=== PATIENT | female | born 1950 | race African-American/Black ===

== ENCOUNTER 2020-06-11 22:47 | Emergency (ER) | payer MEDICARE ==
[2020-06-11 22:59] LABS: HEMATOCRIT 25.9 % (34.2-44.1); HEMOGLOBIN 7.5 g/dL (12.0-16.0)
--- NOTE | 2020-06-11 23:06 | NUR ---
Hemoglobin 7.5 Pt will be discharge back to facility
--- NOTE | 2020-06-11 23:14 | Emergency Department Note ---
History of Present Illnes History of Present Illness Chief Complaint: General Medicine Complaints History of Present Illness This is a 69 year old female [facility] for [facility] 6.9. No distress noted. Patient has history of chronic anemia. SENT FOR BLOOD TRANSFUSION . Historian: [employer] History limited by: other (PT WITH TRACH DOES NOT TALK) Onset (how long ago): unknown Location: NONE Quality: LOW HEMOGLOBIN Severity: moderate Onset quality: unable to specify Timing of current episode: unable to specify Progression: unable to specify Past Medical/Family History Physician Review I have reviewed the patient's past medical and family history. Any updates have been documented here. Past Medical History Recent Fever: No Clinical Suspicion of Infectio: No New/Unexplained Change in Ment: No Past Medical History: Hypertension, COPD Other Medical History: cardiomyopathy decubitus ulcer stage 4 chronic resp failure sepsis toxic encephalopthy pneumonia anemia Past Surgical History: Hysterectomy Social History Unable to obtain PSH: Unable to obtain due to, other (PT WITH TRACH, DOES NOT SPEAK) Review of Systems ROS Narrative Unable to obtain ROS: Unable to obtain due to, other (PT WITH TRACH DOES NOT SPEAK, ONLY FOLLOW SIMPLE COMMANDS) Physical Exam Related Data Allergies: Coded Allergies: aspirin (Verified Allergy, Unknown, 06/11/20) Uncoded Allergies: PENICILLIN (Allergy, Unknown, 06/11/20) Triage Vital Signs Vital Signs Date Time Temp Pulse Resp B/P (MAP) Pulse Ox O2 Delivery O2 Flow Rate FiO2 06/11/20 22:53 99.2 75 16 124/60 100 Room Air Vital signs reviewed: Yes Physical Exam CONSTITUTIONAL Constitutional: Present well-developed, Present well-nourished; Absent distressed, Absent ill appearing HENT HENT: Present normocephalic, Present atraumatic, Present oropharynx clear/moist, Present nose normal HENT L/R: Present left ext ear normal, Present right ext ear normal EYES Eyes: Reports PERRL, Reports conjunctivae normal, Reports other (MILD PALE CONJUNCTIVA) NECK Neck: Present ROM normal, Present other (TRACH PRESENT, NO SECRETIONS, ) PULMONARY Pulmonary: Present effort normal, Present breath sounds normal CARDIOVASCULAR Cardiovascular: Present regular rhythm, Present heart sounds normal, Present capillary refill normal, Present normal rate GASTROINTESTINAL Abdominal: Present soft, Present nontender, Present bowel sounds normal GENITOURINARY Genitourinary: Present exam deferred SKIN Skin: Present warm, Present dry MUSCULOSKELETAL Musculoskeletal: Present ROM normal NEUROLOGICAL Neurological: Present alert, Present other (PT ONLY FOLLOWS VERY SIMPLE COMMANDS) PSYCHOLOGICAL Psychological: Present mood/affect normal, Present judgement normal Results Laboratory Result Diagram: 06/11/20 2252 Laboratory Laboratory Tests Test 06/11/20 22:53 Hemoglobin 7.5 g/dL (12.0-16.0) Hematocrit 25.9 % (34.2-44.1) Lab results reviewed: Yes Assessment & Plan Medical Decision Making MDM PT HGB 7.5 REPORTED 6.9 AT LONG-TERM PT DOES NOT MEET CRITERIA FOR EMERGENT BLOOD TRANSFUSION, PT DISCHARGED BACK TO LONG-TERM I SPOKE WITH DR VIPUL IZQUIERDO, PT'S PCP AND HE IS AWARE SHE DOES NOT REQUIRE A BLOOD TRANSFUSION AT THIS TIME Assessment & Plan Final Impression: (1) Chronic anemia Depart Disposition: DIS TO LONG-TERM BED Last Vital Signs Date Time Temp Pulse Resp B/P (MAP) Pulse Ox O2 Delivery O2 Flow Rate FiO2 06/11/20 22:53 99.2 75 16 124/60 100 Room Air EMA RUCKER MD Jun 11, 2020 23:14
--- NOTE | 2020-06-11 23:14 | NUR ---
[facility] ETA 30-45 mins
--- NOTE | 2020-06-11 23:42 | NUR ---
[facility] nurse notified patient hgb 7.5 and going [facility] to [facility]
--- NOTE | 2020-06-12 00:02 | NUR ---
[facility] arrived in ED for pt transport back to [facility].
== END 2020-06-12 00:08 ==
LOC: ER 22:53
DX: D64.9 Anemia, unspecified (principal); I10 Essential (primary) hypertension; J44.9 Chronic obstructive pulmonary disease, unspecified
CPT/HCPCS: 36415; 85014; 85018; 94002; 94003; 99284

== ENCOUNTER 2020-07-15 18:11 | Inpatient (IN) | payer MEDICARE ==
[~2020-07-15] VITALS: Ht 152.4 cm; Wt 55.8 kg
--- OUTSIDE RECORDS SUMMARY | 2020-07-15 19:27 | XMS REPORT | Continuity of Care Document ---
Author Author Jason [employer], ALBAR[employer] Address Unknown Phone Unavailable Care Team Providers Care Voice Intercept Technician Name Role Phone [employer] Unavailable Un available Problems Problem Status Onset Date Classification Date Reported Comments Source Methicillin resistant Staphylococcus aureus (organism) Active 05/31/2020 Problem 06/08/2020 Nares, PCR+, 2019 Problem added by Discern Expert. [place] Escherichia coli (organism) Ac tive 05/31/2020 Problem 06/08/2020 Sputum, 05/31/2020 Sacral Wound, 05/30/2020 Problem added by Discern Expert. [place] ACUTE SEPSIS CHRONIC RESPIRATORY FAILURE Active 05/30/2020 [place] UNRESPONSIVE Active 05/30/2020 [place] Proteus (organism) Active 05/30/2020 Problem 06/08/2020 sacral wound, ESBL+, 05/30/2020 Problem added by Discern Expert. [facility] Chronic obstructive pulmonary disease wi th (acute) exacerbation 11/26/2018 05/19/2019 [facility] DYSPNEA Active 10/29/2018 [facility] COPD Active 10/29/2018 [facility] SOB Active 0 10/29/2018 [facility] Osteoarthritis involving multiple joints on both sides of body Active Prob gagan 07/28/2018 [facility] Lumbago with sciatica, left side Active Problem [facility] Pain in left shoulder Active Diagnosis 07/28/2018 [facility] Counseling NOS Active Diagnosis 07/28/2018 [facility] Pain in right shoulder Active Diagnosis 07/28/2018 [facility] Nicotine dependence, cigarettes, with withdrawal 05/19/2019 [facility] Atherosclerotic heart disease of [place] coronary artery without angina pectoris 05/19/2019 [facility] Heart failure, unspecified 05/19/2019 [facility] Major depressive disorder, single episode, unspecified 05/19/2019 [facility] Gastro-esophageal reflux disease without esophagitis 05/19/2019 [facility] 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 05/19/2019 [facility] Migraine, unspecified, not intractable, without status migrainosus 05/19/2019 [facility] Old myocardial infarction 05/19/2019 [facility] 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 (disorder) Active Problem 06/08/2020 [facility] D-dimer above reference range (finding) Active Problem 06/08/2020 [facility] Deficiency of macronutrients (disorder) Active Problem 06/08/2020 [facility] Chronic obstructive bronchitis (disorder) Active Problem 06/08/2020 [facility] Hypertensive disorder, systemic arterial (disorder) Resolved Problem 06/08/2020 [facility] Swollen abdomen (finding) Acti ve Problem 02/2020 [facility] Pseudomonas (organism) Active Problem 06/08/2020 Problem added by Discern Expert. [facility] DYSPNEA, UNSPECIFIED Active [facility] SEPSIS, UNSPECIFIED ORGANISM A ctive [facility] CHRONIC RESPIRATORY FAILURE, UNSP W HYPO Active [facility] PRESSURE ULCER OF SACRAL REGION, STAGE 4 Active [facility] Medications Medication Details Route Status Patient Instructions Ordering Provider Order Date Source Saline Flush 0.9% Notes: (Same as: BD Posiflush) Inactive 06/06/2020 [facility] losartan 50 mg oral tablet 100 mg = 2 tab, PO, Daily, 0 Refill(s) Active 06/06/2020 [facility] collagenase topical 250 units/g ointment 1 appl, TOP, Daily, 0 Refill(s) Active 06/06/2020 [facility] fluconazole 200 mg oral tablet 200 mg = 1 tab, PEG, Daily, X 5 day, # 5 tab, 0 Refill(s), other Active 06/06/2020 [facility] ocular lubricant 1 appl, BOTH EYES, Q6H, 0 Refill(s) Active 06/06/2020 [facility] Sodium Hypochlorite 1.25 MG/ML Topical Solution 1 appl, TOP, Daily, 0 Refill(s) Active 06/06/2020 [facility] meropenem 500 mg intravenous injection 500 mg, IV, Q6H, X 35 day, # 140 ea, 0 Refill(s), other Active 06/06/2020 [facility] Saline Flush 0.9% Notes: (Same as: BD Posiflush) Inactive 06/06/2020 [facility] Santyl Notes: (Same As: Santyl) Inactive 06/06/2020 [place] Losartan Notes: (Same as: Ludmila bolivar) No Longer Active 06/05/2020 [place] Losartan Notes: (Same as: Ludmila bolivar) Inactive 06/04/2020 [place] Labetalol 10 mg, 2 mL, Route: IV, Drug form: INJ, ONCE, Dosing Weight 59.6, kg, Start date: 06/03/20 5:40:00 CDT, Stop date: 06/03/20 5:40:00 CDT, 0 Inactive 06/03/2020 [place] Escitalopram Notes: (Same as: Lexapro) No Longer Active 06/02/2020 [place] Famotidine 20 MG Oral Tablet N otes: (Same as: Pepcid) No Longer Active 06/02/2020 [place] Folic Acid Notes: (Same as: Fo lvite) No Longer Active 06/02/2020 [place] Furosemide 40 MG Oral Tablet [Lasix] Notes: (Same as: Lasix) May cause GI upset. Give with food or milk. No Longer Active 06/02/2020 [place] Losartan Notes: (Same as: Ludmila bolivar) No Longer Active 06/02/2020 [place] multivitamin Notes: (Same as:Roderick saini) WASTE: F/P - Black; E - Municipal Trash Bin Take with food. No Longer Active 06/02/2020 [place] Zinc Sulfate Notes: (Zinc sulf ate capsule) - 220 mg Zinc sulfate = 50 mg elemental zinc Same as Zinc Sulfate No Longer Active 06/02/2020 [place] atorvastatin Notes: (Same as: Lipitor) No Longer Active 06/02/2020 [place] Fluconazole Notes: (Same as: D iflucan) Do not refrigerate Hazardous Drug Group 3:Reproductive risk Hazardous Drug -- Refer to safe handling procedure PPE Matrix No Longer Active 06/01/2020 [place] ferrous sulfate Notes: Give wi th food. "Do Not Crush" No Longer Active 06/01/2020 [place] Amiodarone Notes: (Same as: Co rdarone) No Longer Active 06/01/2020 [place] carvedilol Notes: Give with fo od. (Same As: Coreg) No Longer Active 06/01/2020 [place] Solu-Medrol Notes: (Same as:So akshat-MEDROL, A-Methapred) No Longer Active 06/01/2020 [place] Dakins Solution 1 appl, Route: TOP, BID, Drug form: SOLN, Start date: 06/01/20 9:00:00 CDT, Duration: 30 day, Stop date: 06/30/20 17:00:00 CDT Inactive 06/01/2020 [place] Dakins Quarter Strength Solution Notes: (Dakin's (0.125%=1/4 strength) 473ml top SOLN) For external use only. Note: quarter strength = 0.125% sodium hypochlorite. No Longer Active 06/01/2020 [place] Omnipaque 350 injectable solution Notes: (same as:Omnipaque 350). WASTE: F/P - Black; E - Municipal Trash Bin Inactive 06/01/2020 [place] Vancomycin 2001 mg: infuse ov er 2.5 hours For adult patients only: Round to nearest 250 mg per Medical Staff approval No Longer Active 05/31/2020 [place] AMIODarone 200 mg oral tablet 200 mg = 1 tab, PO, Daily, # 90 tab, 3 Refill(s) Active 05/31/2020 [place] Sulfamethoxazole 800 MG / Trimethoprim 1 60 MG Oral Tablet [Bactrim] 1 tab, PO, BID, # 20 tab, 0 Refill(s) No Longer Active 05/31/2020 [place] Famotidine 20 MG Oral Tablet 2 0 mg = 1 tab, PO, Daily, 0 Refill(s) Active 05/31/2020 [place] Zinc-220 oral capsule 220 mg = 1 cap, PO, Daily, 0 Refill(s) Active 05/31/2020 [place] ferrous sulfate 220 mg/5 mL oral elixir 220 mg = 5 mL, PO, TID, 0 Refill(s) Active 05/31/2020 [place] Folic Acid 1 mg, Daily, 0 Refi ll(s) Active 05/31/2020 [place] multivitamin 15 mL, Daily, 0 R efill(s) Active 05/31/2020 [place] Omnipaque 350 injectable solution Notes: (same as:Omnipaque 350). WASTE: F/P - Black; E - Municipal Trash Bin No Longer Active 05/31/2020 [place] Lasix Notes: (Same as: Lasix) Inactive 05/31/2020 [facility] Protonix Notes: For IV push re constitute with 10 ml 0.9% sodium chloride and push over 2 minutes. (Same as: Protonix) No Longer Active 05/31/2020 [facility] Saline Flush 0.9% Notes: (Same as: BD Posiflush) No Longer Active 05/31/2020 [facility] Albuterol 0.833 MG/ML / Ipratropium Brom kt 0.167 MG/ML Inhalant Solution [DuoNeb] Notes: (Same as: Duoneb) No Longer Active 05/31/2020 [facility] Merrem Notes: Same as Merrem No Longer Active 05/31/2020 [facility] ocular lubricant Notes: (Same as: Lacri-Lube, Puralube, Duratears Naturale, Artificial Tears, and Tears Again ) No Longer Active 05/31/2020 [facility] heparin Notes: porcine heparin No Longer Active 05/31/2020 [facility] Solu-Medrol Notes: (Same as:So akshat-MEDROL, A-Methapred) Inactive 05/31/2020 [facility] Sodium Chloride 0.9% (Bolus) IV 500 mL, 500 ml/hr, Infuse Over: 1 hr, Route: IV, 500, Drug form: INJ, ONCE, Priority: STAT, Dosing Weight 61.2 kg, Start date: 05/30/20 21:08:00 CDT, Stop date: 05/30/20 21:08:00 CDT, 0 Inactive 05/31/2020 [facility] Potassium Chloride Notes: ([facility] e as: KCL) Infuse no faster than 10 mEq/hr if given peripherally. No Longer Active 05/31/2020 [facility] sodium phosphate Notes: Infuse over 4 hour. Do not infuse phosphorous concurrently in the same line as TPN or IVF that contains calcium. For double lumen central lines, phosphorous may be infused in a separate lumen from TPN. No Longer Active 05/31/2020 [place] potassium phosphate Notes: ( me as: K Phosphate.) Do not infuse phosphorous concurrently in the same line as TPN or IVF that contains calcium. For double lumen central lines, phosphorous may be infused in a separate lumen from TPN. 1 mMol phoshate has 1.47 mEq potassium Infuse over 4 hours No Longer Active 05/31/2020 [facility] potassium phosphate-sodium phosphate 250 mg-280 mg-160 mg oral powder for reconstitution Notes: (Same as: Phos-NaK) Each 1.5 gm pkt has 250mg phosphorous. Mix w/2.5oz water and stir. No Longer Active 05/31/2020 [place] Magnesium Sulfate Notes: WASTE : F/P - Sink; E - Municipal Trash Bin No Longer Active 05/31/2020 [place] Magnesium Oxide Notes: (Same a s: Mag-Ox 400) Magnesium oxide [id number] elemental magnesium Dose=____mg magnesium oxide (___mg elemental magnesium) No Longer Active 05/31/2020 [place] Calcium Gluconate Notes: Conta ins: calcium gluconate 20mg/mL NaCl 0.67% 50mL WASTE: F/P - Sink; E - Municipal Trash Bin No Longer Active 05/31/2020 [facility] Calcium Carbonate 500 MG Chewable Tablet Notes: (Same As: Tums) Calcium Carbonate 500 mg = 200 mg elemental calcium Dose = mg calcium carbonate ( mg elemental calcium) No Longer Active 05/31/2020 [facility] Nystatin 100 UNT/MG Topical Powder Notes: (Same as:Mycostatin, Nilstat) For external use only. No Longer Active 05/31/2020 [place] Saline Flush 0.9% Notes: (Same as: BD Posiflush) No Longer Active 05/31/2020 [facility] Dextrose 50% Syringe (D50W) 12 .5 gm, 25 mL, Route: IVP, Drug Form: INJ, Dosing Weight 61.2, kg, PRN, PRN Blood Glucose Results, Start date: 05/30/20 21:06:00 CDT, Duration: 30 day, Stop date: 06/29/20 21:05:00 CDT, 0 No Longer Active 05/31/2020 [facility] Glucagon 1 mg, Route: IM, Drug form: PDR/INJ, PRN, Dosing Weight 61.2, kg, PRN Blood Glucose Results, Start date: 05/30/20 21:06:00 CDT, Duration: 30 day, Stop date: 06/29/20 21:05:00 CDT, 0 No Longer Active 05/31/2020 [place] Insulin Lispro Notes: (Same as : Humalog) Roll in palms of hands gently; Do not shake vigorously. WASTE: F/P - Black; E - Municipal Trash Bin Stable for 28 days at room temperature. Expires in days from Date No Longer Active 05/31/2020 [place] chlorhexidine gluconate 1.2 MG/ML Mouthwash Notes: (Same As: Peridex) No Longer Active 05/31/2020 [place] NS 1,000 mL 1,000 mL, Rate: 75 ml/hr, Infuse over: 13.3 hr, Route: IV, Dosing Weight 61.2 kg, Total Volume: 1,000, Start date: 05/30/20 19:47:00 CDT, Duration: 30 day, Stop date: 06/29/20 19:46:00 CDT, 1.63, m2, 0 No Longer Active 05/31/2020 [place] Dextrose 50% Syringe (D50W) 12 .5 gm, 25 mL, Route: IVP, Drug Form: INJ, Dosing Weight 61.2, kg, PRN, PRN Blood Glucose Results, Start date: 05/30/20 19:40:00 CDT, Duration: 30 day, Stop date: 06/29/20 19:39:00 CDT, 0 No Longer Active 05/31/2020 [place] Glucagon 1 mg, Route: IM, Drug form: PDR/INJ, PRN, Dosing Weight 61.2, kg, PRN Blood Glucose Results, Start date: 05/30/20 19:40:00 CDT, Duration: 30 day, Stop date: 06/29/20 19:39:00 CDT, 0 No Longer Active 05/31/2020 [place] Omnipaque 300 injectable solution Notes: (Same as:Omnipaque 300). WASTE: F/P - Black; E - Municipal Trash Bin No Longer Active 05/31/2020 [place] chlorhexidine gluconate 1.2 MG/ML Mouthwash Notes: (Same As: Peridex) No Longer Active 05/30/2020 [place] Saline Flush 0.9% Notes: (Same as: BD Posiflush) No Longer Active 05/30/2020 [place] Calcium Chloride 0.0014 MEQ/ML / Potassi um Chloride 0.004 MEQ/ML / Sodium Chloride 0.103 MEQ/ML / Sodium Lactate 0.028 MEQ/ML Injectable Solution 1,000 mL, 2,000 ml/hr, Route: IV, ONCE, Priority: STAT, Dosing Weight 61.364 kg, Start date: 05/30/20 17:15:00 CDT, Stop date: 05/30/20 17:15:00 CDT Inactive 05/30/2020 [facility] methylPREDNISolone SODium SUCCinate 125 mg, Route: IVP, ONCE, Dosing Weight 61.364, kg, Priority: STAT, Start date: 05/30/20 17:15:00 CDT, Stop date: 05/30/20 17:15:00 CDT Inactive 05/30/2020 [facility] Albuterol 0.833 MG/ML / Ipratropium Brom kt 0.167 MG/ML Inhalant Solution 3 mL, Route: NEB, Dosing Weight 61.364, kg, ONCE, STAT, Start date: 05/30/20 17:15:00 CDT, Stop date: 05/30/20 17:15:00 CDT Inactive 05/30/2020 [facility] Vancomycin 2001 mg: infuse ov er 2.5 hours For adult patients only: Round to nearest 250 mg per Medical Staff approval MEDICATION WASTE Product Size: 1000 mg Product Wasted: ___ mg Inactive 05/30/2020 [facility] meropenem 1 gm, Route: IVP, ON CE, Dosing Weight 61.364, kg, Priority: STAT, Start date: 05/30/20 17:15:00 CDT, Stop date: 05/30/20 17:15:00 CDT, ABX Indication: Other (specify in Comments) Inactive 05/30/2020 [facility] Mucinex Notes: (Same as: Guaif enesin LA, Humibid LA, Mucinex) Inactive 10/31/2018 [facility] atorvastatin Notes: (Same As: Lipitor) Inactive 10/31/2018 [facility] azithromycin 500 mg oral tablet 500 mg = 1 tab, PO, Daily, X 2 day, # 2 tab, 0 Refill(s), Pharmacy: [email or web address] [id number] No Longer Active 10/30/2018 [facility] predniSONE 20 mg oral tablet 4 0 mg = 2 tab, PO, Daily, X 4 day, # 8 tab, 0 Refill(s), Pharmacy: [facility] [id number] No Longer Active 10/30/2018 [facility] Methocarbamol Notes: (Same as: Robaxin) Inactive 10/30/2018 [facility] Protonix Notes: Tablet should not be chewed or crushed. (Same as: Protonix) Inactive 10/30/2018 [facility] Lisinopril Notes: (Same as: Pr inivil, Zestril) Inactive 10/30/2018 [facility] Escitalopram Notes: (Same as: Lexapro) Inactive 10/30/2018 [facility] Furosemide 40 MG Oral Tablet [Lasix] Notes: (Same as: Lasix) May cause GI upset. Give with food or milk. Inactive 10/30/2018 [facility] Docusate Notes: (Same as: Cola ce) (Do Not Crush) Inactive 10/30/2018 [facility] Acetaminophen 300 MG / Codeine Phosphate 30 MG Oral Tablet [Tylenol with Codeine #3] Notes: Do not exceed 4gm/day of acetamin ophen. (Same as: Tylenol with Codeine # 3) Inactive 10/30/2018 [facility] Albuterol 0.833 MG/ML / Ipratropium Brom kt 0.167 MG/ML Inhalant Solution Notes: (Same as: Duoneb) Inactive 10/30/2018 [facility] nter Trazodone Hydrochloride 100 MG Oral Tablet Notes: (Same As: Desyrel) Inactive 10/30/2018 [facility] gabapentin 300 MG Oral Capsule Notes: (Same as: Neurontin) Inactive 10/30/2018 [facility] Furosemide 40 MG Oral Tablet [Lasix] 40 mg = 1 tab, PO, Daily, # 30 tab, 0 Refill(s) Active 10/30/2018 [facility] nter escitalopram 20 mg oral tablet 20 mg = 1 tab, PO, Daily, # 30 tab, 0 Refill(s) Active 10/30/2018 [facility] pantoprazole 40 MG Enteric Coated Tablet [Protonix] 40 mg = 1 tab, PO, Daily, # 30 tab, 0 Refill(s) Active 10/30/2018 [facility] nter carvedilol 12.5 MG Oral Tablet [Coreg] 12.5 mg = 1 tab, PO, BID, 0 Refill(s) Active 10/30/2018 [facility] Trazodone Hydrochloride 100 MG Oral Tablet 100 mg = 1 tab, PO, Bedtime, # 30 tab, 0 Refill(s) Active 10/30/2018 [facility] nter gabapentin 300 MG Oral Capsule 300 mg = 1 cap, PO, Bedtime, 0 Refill(s) Active 10/30/2018 [facility] atorvastatin 20 mg oral tablet 20 mg = 1 tab, PO, Bedtime, # 30 tab, 0 Refill(s) Active 10/30/2018 [facility] nter lisinopril 5 mg oral tablet 5 mg = 1 tab, PO, Daily, # 30 tab, 0 Refill(s) Active 10/30/2018 [facility] methocarbamol 500 mg oral tablet 1,000 mg = 2 tab, PO, BID, 0 Refill(s) Active 10/30/2018 [facility] Albuterol 0.833 MG/ML / Ipratropium Brom kt 0.167 MG/ML Inhalant Solution [DuoNeb] 3 ml, INHALATION, QID, # 30 ea, 0 Refill (s) Active 10/30/2018 [facility] Nicotine Notes: (Same as: Ferny vale) "Remove old patch before application of new patch" WASTE: F/P - P Waste Black; E - P Waste Black Inactive 10/30/2018 [facility] Dextrose 50% Syringe 12.5 gm, 25 mL, Route: IVP, Drug Form: INJ, Dosing Weight 61.364, kg, PRN, PRN Blood Glucose Results, Start date: 10/30/18 0:17:00 WINDER HAND, Duration: 30 day, Stop date: 11/29/18 0:16:00 WINDER HAND Inactive 10/30/2018 [facility] Glucagon 1 mg, Route: IM, Drug form: PDR/INJ, PRN, Dosing Weight 61.364, kg, PRN Blood Glucose Results, Start date: 10/30/18 0:17:00 WINDER HAND, Duration: 30 day, Stop date: 11/29/18 0:16:00 WINDER HAND Inactive 10/30/2018 [facility] Ondansetron Notes: (Same as: Viviana martinez) MEDICATION WASTE Product Size: 4 mg Product Wasted: ___ mg Inactive 10/30/2018 [facility] gabapentin 300 MG Oral Capsule 300 mg, 1 cap, Route: PO, ONCE, Dosing Weight 61.364, kg, Start date: 10/29/18 22:55:00 WINDER HAND, Stop date: 10/29/18 22:55:00 WINDER HAND Inactive 10/30/2018 [facility] Acetaminophen 300 MG / Codeine Phosphate 30 MG Oral Tablet [Tylenol with Codeine #3] 1 tab, Route: PO, Drug Form: TAB, Dosing Weight 61.364, kg, ONCE, STAT, Start date: 10/29/18 22:54:00 WINDER HAND, Stop date: 10/29/18 22:54:00 WINDER HAND Inactive 10/30/2018 [facility] Azithromycin Notes: (Same As: Zithromax IV) Inactive 10/30/2018 [facility] Albuterol 0.833 MG/ML / Ipratropium Brom kt 0.167 MG/ML Inhalant Solution [DuoNeb] Notes: (Same as: Duoneb) Inactive 10/30/2018 [facility] Magnesium Sulfate 2 gm, Route: IV, ONCE, Dosing Weight 61.364, kg, Priority: STAT, Start date: 10/29/18 18:53:00 WINDER HAND, Stop date: 10/29/18 18:53:00 WINDER HAND Inactive 10/30/2018 [facility] Meloxicam 1 tablet Orally Active 15 MG Orally Once a day prn with food [facility] 01/26/2017 [facility] Gabapentin 1 capsule Orally Active 300 MG Orally Three bonnie es a day [facility] 11/24/2016 [facility] Gabapentin 1 capsule Orally Active 300 MG Orally bedtime [facility] Meloxicam 1 tablet Orally Active 15 MG Orally Once a day prn [facility] Gabapentin 1 capsule Orally Active 300 MG Orally bedtime [facility] Atorvastatin Calcium 1 tablet Orally Active 40 MG Orally Once a day [facility] Potassium Chloride 1 packet wi th food Orally Active 20 MEQ Orally Once a day [facility] Methocarbamol 1 tablet Orally Active 750 MG Orally every 4 h rs [facility] Tramadol HCl 1 tablet as needed Orally Active 50 MG Orally every 6 hrs prn [facility]it[facility] Acetaminophen-Codeine #4 1 tab let as needed Orally Active 300-60 MG Orally every 6 hrs Jitendra [facility] Olmesartan Medoxomil 1 tablet Orally Active 5 MG Orally Once a day Jti[facility] Diltiazem HCl ER 1 capsule on an empty stomach in the morning Orally Active 240 MG Orally Once a day [facility] Carvedilol Unknown Orally Active 12.5 MG Orally [facility] Vitamin D (Ergocalciferol) 1 c apsule Orally Active 21453 UNIT Orally Once a day Jit[facility] Fluoxetine HCl 1 capsule in morning Orally Active 20 MG Orally Once a day [facility] Allergies, Adverse Reactions, Alerts Substance Category Reaction Severity Reaction type Status Date Reported Comments Source Aspirin Adverse Reaction Info Not Available Adverse Reaction Active 07/26/2018 [facility] penicillins Assertion pt states she"passes out" Severe Drug allergy Active [place] aspirin Assertion pt states it makes her stomach hurt Mild Propensity to adverse reactions to drug Active Sugar L and Immunizations No Data Provided for This Section Results Order Name Results Value Reference Range Date Interpretation Comments Source CHEM PANEL Glucose Lvl 91 70 - 99 06/06/2020 [place] CHEM PANEL BUN 28 7 - 22 06/06/2020 [place] CHEM PANEL Creatinine Lvl 0.54 0.50 - 1.40 06/06/2020 [place] CHEM PANEL Sodium Lvl 147 135 - 145 06/06/2020 [place] CHEM PANEL Potassium Lvl 4.2 3.5 - 5.1 06/06/2020 [place] CHEM PANEL Chloride Lvl 115 95 - 109 06/06/2020 [place] CHEM PANEL CO2 26 24 - 32 06/06/2020 [place] CHEM PANEL Calcium Lvl 8.3 8.5 - 10.5 06/06/2020 [place] CHEM PANEL AGAP 10.2 10.0 - 20.0 06/06/2020 [place] CHEM PANEL eGFR 97 06/06/2020 Result Comment: The eGFR is calculated using the CKD-EPI formula. In most young, healthy individuals the eGFR will be >90 mL/min/1.73m2. The eGFR declines with age. An eGFR of 60-89 may be normal in some populations, particularly the elderly, for whom the CKD-EPI formula has not been extensively validated. Use of the eGFR is not recommended in the following populations:

Individuals with unstable creatinine concentrations, including patients and those with serious co-morbid conditions.

Patients with extremes in muscle mass or diet.

The data above are obtained from the National Kidney Disease Education Program (NKDEP) which additionally recommends that when the eGFR is used in patients with extremes of body mass index for purposes of drug dosing, the eGFR should be multiplied by the estimated BMI. [place] CHEM PANEL Total Protein 6.0 6.4 - 8.4 06/06/2020 [place] CHEM PANEL Albumin Lvl 1.8 3.5 - 5.0 06/06/2020 [place] CHEM PANEL ALT 33 0 - 65 06/06/2020 [place] CHEM PANEL AST 24 0 - 37 06/06/2020 [place] CHEM PANEL Alk Phos 145 39 - 136 06/06/2020 [place] CHEM PANEL Bili Total 0.6 0.2 - 1.3 06/06/2020 [place] CHEM PANEL Bili Direct 0.2 0.0 - 0.3 06/06/2020 [place] CHEM PANEL Bili Indirect 0.4 0.0 - 1.0 06/06/2020 [place] CHEM PANEL Globulin 4.2 2.7 - 4.2 06/06/2020 [place] CHEM PANEL A/G Ratio 0.4 0.7 - 1.6 06/06/2020 [place] HEMATOLOGY Segs 83.3 45.0 - 75.0 06/06/2020 [place] HEMATOLOGY Lymphocytes 9.9 20.0 - 40.0 06/06/2020 [place] HEMATOLOGY Monocytes 4.5 2.0 - 12.0 06/06/2020 [place] HEMATOLOGY Eosinophils 1.9 0.0 - 4.0 06/06/2020 [place] HEMATOLOGY Basophils 0.4 0.0 - 1.0 06/06/2020 [place] HEMATOLOGY Neutrophils # 13.8 1.5 - 8.1 06/06/2020 [place] HEMATOLOGY Lymphocytes # 1.7 1.0 - 5.5 06/06/2020 [place] HEMATOLOGY Monocytes # 0.8 0.0 - 0.8 06/06/2020 [place] HEMATOLOGY Eosinophils # 0.3 0.0 - 0.5 06/06/2020 [place] HEMATOLOGY Basophils # 0.1 0.0 - 0.2 06/06/2020 [place] HEMATOLOGY WBC 16.6 3.7 - 10.4 06/06/2020 [facility] RBC 3.76 4.20 - 5.40 06/06/2020 [facility] Hgb 10.3 12.0 - 16.0 06/06/2020 [facility] Hct 31.8 36.0 - 48.0 06/06/2020 [facility] MCV 84.5 80.0 - 98.0 06/06/2020 [facility] MCH 27.3 27.0 - 31.0 06/06/2020 [facility] MCHC 32.3 32.0 - 36.0 06/06/2020 [facility] RDW 17.7 11.5 - 14.5 06/06/2020 [facility] Platelet 287 133 - 450 06/06/2020 [facility] MPV 8.4 7.4 - 10.4 06/06/2020 [facility] Glucose Lvl 83 70 - 99 06/05/2020 [facility] BUN 32 7 - 22 06/05/2020 [facility] Creatinine Lvl 0.57 0.50 - 1.40 06/05/2020 [facility] Sodium Lvl 146 135 - 145 06/05/2020 [facility] Potassium Lvl 4.1 3.5 - 5.1 06/05/2020 [facility] Chloride Lvl 115 95 - 109 06/05/2020 [facility] CO2 25 24 - 32 06/05/2020 [facility] Calcium Lvl 7.8 8.5 - 10.5 06/05/2020 [facility] AGAP 10.1 10.0 - 20.0 06/05/2020 [facility] eGFR 96 06/05/2020 Result Comment: The eGFR is calculated using the CKD-EPI formula. In most young, healthy individuals the eGFR will be >90 mL/min/1.73m2. The eGFR declines with age. An eGFR of 60-89 may be normal in some populations, particularly the elderly, for whom the CKD-EPI formula has not been extensively validated. Use of the eGFR is not recommended in the following populations:

Individuals with unstable creatinine concentrations, including patients and those with serious co-morbid conditions.

Patients with extremes in muscle mass or diet.

The data above are obtained from the National Kidney Disease Education Program (NKDEP) which additionally recommends that when the eGFR is used in patients with extremes of body mass index for purposes of drug dosing, the eGFR should be multiplied by the estimated BMI. [facility] WBC 18.3 3.7 - 10.4 06/05/2020 [facility] RBC 3.68 4.20 - 5.40 06/05/2020 [facility] Hgb 9.8 12.0 - 16.0 06/05/2020 [facility] Hct 31.1 36.0 - 48.0 06/05/2020 [facility] MCV 84.5 80.0 - 98.0 06/05/2020 [facility] MCH 26.7 27.0 - 31.0 06/05/2020 [facility] MCHC 31.6 32.0 - 36.0 06/05/2020 [facility] RDW 16.7 11.5 - 14.5 06/05/2020 [facility] Platelet 295 133 - 450 06/05/2020 [facility] MPV 8.8 7.4 - 10.4 06/05/2020 [facility] Segs 85.2 45.0 - 75.0 06/05/2020 [facility] Lymphocytes 8.8 20.0 - 40.0 06/05/2020 [facility] Monocytes 3.8 2.0 - 12.0 06/05/2020 [facility] Eosinophils 1.8 0.0 - 4.0 06/05/2020 [facility] Basophils 0.4 0.0 - 1.0 06/05/2020 [facility] Neutrophils # 15.6 1.5 - 8.1 06/05/2020 [facility] Lymphocytes # 1.6 1.0 - 5.5 06/05/2020 [facility] Monocytes # 0.7 0.0 - 0.8 06/05/2020 [facility] Eosinophils # 0.3 0.0 - 0.5 06/05/2020 [facility] Basophils # 0.1 0.0 - 0.2 06/05/2020 [facility] WBC 22.5 3.7 - 10.4 06/04/2020 [facility] RBC 3.93 4.20 - 5.40 06/04/2020 [facility] Hgb 10.4 12.0 - 16.0 06/04/2020 [facility] Hct 33.1 36.0 - 48.0 06/04/2020 [facility] MCV 84.3 80.0 - 98.0 06/04/2020 [facility] MCH 26.4 27.0 - 31.0 06/04/2020 [facility] MCHC 31.3 32.0 - 36.0 06/04/2020 [facility] RDW 17.0 11.5 - 14.5 06/04/2020 [facility] Platelet 344 133 - 450 06/04/2020 [facility] MPV 8.7 7.4 - 10.4 06/04/2020 [facility] Segs 91.0 45.0 - 75.0 06/04/2020 [facility] Lymphocytes 4.2 20.0 - 40.0 06/04/2020 [facility] Monocytes 3.3 2.0 - 12.0 06/04/2020 [facility] Eosinophils 1.4 0.0 - 4.0 06/04/2020 [facility] Basophils 0.1 0.0 - 1.0 06/04/2020 [facility] Neutrophils # 20.5 1.5 - 8.1 06/04/2020 [facility] Lymphocytes # 1.0 1.0 - 5.5 06/04/2020 [facility] Monocytes # 0.7 0.0 - 0.8 06/04/2020 [facility] Eosinophils # 0.3 0.0 - 0.5 06/04/2020 [facility] Glucose Lvl 151 70 - 99 06/03/2020 [facility] BUN 40 7 - 22 06/03/2020 [facility] Creatinine Lvl 0.81 0.50 - 1.40 06/03/2020 [facility] Sodium Lvl 145 135 - 145 06/03/2020 [facility] Potassium Lvl 5.1 3.5 - 5.1 06/03/2020 [facility] Chloride Lvl 118 95 - 109 06/03/2020 [facility] CO2 21 24 - 32 06/03/2020 [facility] Calcium Lvl 8.5 8.5 - 10.5 06/03/2020 [facility] Total Protein 7.2 6.4 - 8.4 06/03/2020 [facility] Albumin Lvl 2.1 3.5 - 5.0 06/03/2020 [facility] ALT 62 0 - 65 06/03/2020 [facility] AST 43 0 - 37 06/03/2020 [facility] Alk Phos 205 39 - 136 06/03/2020 [facility] Bili Total 0.4 0.2 - 1.3 06/03/2020 [facility] AGAP 11.1 10.0 - 20.0 06/03/2020 [facility] B/C Ratio 49 6 - 25 06/03/2020 [facility] Globulin 5.1 2.7 - 4.2 06/03/2020 [facility] A/G Ratio 0.4 0.7 - 1.6 06/03/2020 [facility] eGFR 86 06/03/2020 Result Comment: The eGFR is calculated using the CKD-EPI formula. In most young, healthy individuals the eGFR will be >90 mL/min/1.73m2. The eGFR declines with age. An eGFR of 60-89 may be normal in some populations, particularly the elderly, for whom the CKD-EPI formula has not been extensively validated. Use of the eGFR is not recommended in the following populations:

Individuals with unstable creatinine concentrations, including patients and those with serious co-morbid conditions.

Patients with extremes in muscle mass or diet.

The data above are obtained from the National Kidney Disease Education Program (NKDEP) which additionally recommends that when the eGFR is used in patients with extremes of body mass index for purposes of drug dosing, the eGFR should be multiplied by the estimated BMI. [facility] Basophils # 0.1 0.0 - 0.2 06/03/2020 [facility] Hypochrom 1+ (06/03/20 5:08 AM) None Seen 06/03/2020 [facility] Vanco Tr 23.9 06/02/2020 [facility] [place] [place] [id number] 06/02/2020 [facility] Magnesium Lvl 2.5 1.8 - 2.4 06/02/2020 [facility] Phosphorus 2.6 2.5 - 4.5 06/02/2020 [facility] Glucose Lvl 107 70 - 99 06/02/2020 [facility] BUN 38 7 - 22 06/02/2020 [facility] Creatinine Lvl 0.78 0.50 - 1.40 06/02/2020 [facility] Sodium Lvl 146 135 - 145 06/02/2020 [facility] Potassium Lvl 3.8 3.5 - 5.1 06/02/2020 [facility] Chloride Lvl 113 95 - 109 06/02/2020 [facility] CO2 27 24 - 32 06/02/2020 [facility] Calcium Lvl 8.2 8.5 - 10.5 06/02/2020 [facility] Total Protein 6.6 6.4 - 8.4 06/02/2020 [facility] Albumin Lvl 1.8 3.5 - 5.0 06/02/2020 [facility] ALT 65 0 - 65 06/02/2020 [facility] AST 50 0 - 37 06/02/2020 [facility] Alk Phos 185 39 - 136 06/02/2020 [facility] Bili Total 0.5 0.2 - 1.3 06/02/2020 [facility] AGAP 9.8 10.0 - 20.0 06/02/2020 [facility] B/C Ratio 49 6 - 25 06/02/2020 [facility] Globulin 4.8 2.7 - 4.2 06/02/2020 [facility] A/G Ratio 0.4 0.7 - 1.6 06/02/2020 [facility] eGFR 90 06/02/2020 Result Comment: The eGFR is calculated using the CKD-EPI formula. In most young, healthy individuals the eGFR will be >90 mL/min/1.73m2. The eGFR declines with age. An eGFR of 60-89 may be normal in some populations, particularly the elderly, for whom the CKD-EPI formula has not been extensively validated. Use of the eGFR is not recommended in the following populations:

Individuals with unstable creatinine concentrations, including patients and those with serious co-morbid conditions.

Patients with extremes in muscle mass or diet.

The data above are obtained from the National Kidney Disease Education Program (NKDEP) which additionally recommends that when the eGFR is used in patients with extremes of body mass index for purposes of drug dosing, the eGFR should be multiplied by the estimated BMI. [facility] PTT 34.8 22.9 - 35.8 06/02/2020 [facility] PT 17.5 12.0 - 14.7 06/02/2020 [facility] INR 1.42 0.85 - 1.17 06/02/2020 [facility] WBC 22.3 3.7 - 10.4 06/02/2020 [facility] RBC 3.58 4.20 - 5.40 06/02/2020 [facility] Hgb 9.6 12.0 - 16.0 06/02/2020 [facility] Hct 29.7 36.0 - 48.0 06/02/2020 [facility] MCV 83.1 80.0 - 98.0 06/02/2020 [facility] MCH 26.8 27.0 - 31.0 06/02/2020 [facility] MCHC 32.2 32.0 - 36.0 06/02/2020 [facility] RDW 16.4 11.5 - 14.5 06/02/2020 [facility] Platelet 309 133 - 450 06/02/2020 [facility] MPV 8.7 7.4 - 10.4 06/02/2020 [facility] Segs 94.0 45.0 - 75.0 06/02/2020 [facility] Lymphocytes 2.4 20.0 - 40.0 06/02/2020 [facility] Monocytes 3.6 2.0 - 12.0 06/02/2020 [facility] Neutrophils # 21.0 1.5 - 8.1 06/02/2020 [facility] Lymphocytes # 0.5 1.0 - 5.5 06/02/2020 [facility] Monocytes # 0.8 0.0 - 0.8 06/02/2020 [facility] PARATHYROID PROFILE Ca Ion WB 1.09 1.05 - 1.25 06/02/2020 [facility] PARATHYROID PROFILE Ca Norm WB 1.09 1.05 - 1.25 06/02/2020 [facility] ELECTROLYTES Potassium Lvl 4.0 3.5 - 5.1 06/01/2020 [facility] Total Protein 6.7 6.4 - 8.4 06/01/2020 [facility] Albumin Lvl 1.8 3.5 - 5.0 06/01/2020 [facility] ALT 65 0 - 65 06/01/2020 [facility] AST 72 0 - 37 06/01/2020 [facility] Alk Phos 189 39 - 136 06/01/2020 [facility] Bili Total 0.3 0.2 - 1.3 06/01/2020 [facility] Bili Direct 0.1 0.0 - 0.3 06/01/2020 [facility] Bili Indirect 0.2 0.0 - 1.0 06/01/2020 [facility] Globulin 4.9 2.7 - 4.2 06/01/2020 [facility] A/G Ratio 0.4 0.7 - 1.6 06/01/2020 [facility] WBC 27.6 3.7 - 10.4 06/01/2020 [facility] RBC 3.11 4.20 - 5.40 06/01/2020 [facility] Hgb 8.4 12.0 - 16.0 06/01/2020 [facility] Hct 25.7 36.0 - 48.0 06/01/2020 [facility] MCV 82.6 80.0 - 98.0 06/01/2020 [facility] MCH 27.2 27.0 - 31.0 06/01/2020 [facility] MCHC 32.9 32.0 - 36.0 06/01/2020 [facility] RDW 16.5 11.5 - 14.5 06/01/2020 [facility] Platelet 285 133 - 450 06/01/2020 [facility] MPV 8.8 7.4 - 10.4 06/01/2020 [facility] Plt Morph Jen l (06/01/20 4:19 AM) Normal 06/01/2020 [facility] Segs 94.9 45.0 - 75.0 06/01/2020 [facility] Lymphocytes 1.8 20.0 - 40.0 06/01/2020 [facility] Monocytes 2.5 2.0 - 12.0 06/01/2020 [facility] Eosinophils 0.2 0.0 - 4.0 06/01/2020 [facility] Basophils 0.6 0.0 - 1.0 06/01/2020 [facility] Neutrophils # 26.2 1.5 - 8.1 06/01/2020 [facility] Lymphocytes # 0.5 1.0 - 5.5 06/01/2020 [facility] Monocytes # 0.7 0.0 - 0.8 06/01/2020 [facility] Eosinophils # 0.1 0.0 - 0.5 06/01/2020 [facility] Basophils # 0.2 0.0 - 0.2 06/01/2020 [facility] Polychrom Slight 06/01/2020 [facility] Glucose Lvl 102 70 - 99 06/01/2020 [facility] BUN 36 7 - 22 06/01/2020 [facility] Creatinine Lvl 0.84 0.50 - 1.40 06/01/2020 [facility] Sodium Lvl 144 135 - 145 06/01/2020 [facility] Potassium Lvl 3.5 3.5 - 5.1 06/01/2020 [facility] Chloride Lvl 111 95 - 109 06/01/2020 [facility] CO2 25 24 - 32 06/01/2020 [facility] Calcium Lvl 8.1 8.5 - 10.5 06/01/2020 [facility] Total Protein 6.4 6.4 - 8.4 06/01/2020 [facility] Albumin Lvl 1.7 3.5 - 5.0 06/01/2020 [facility] ALT 65 0 - 65 06/01/2020 [facility] AST 65 0 - 37 06/01/2020 [facility] Alk Phos 184 39 - 136 06/01/2020 [facility] Bili Total 0.3 0.2 - 1.3 06/01/2020 [facility] AGAP 11.5 10.0 - 20.0 06/01/2020 [facility] B/C Ratio 43 6 - 25 06/01/2020 [facility] Globulin 4.7 2.7 - 4.2 06/01/2020 [facility] A/G Ratio 0.4 0.7 - 1.6 06/01/2020 [facility] eGFR 83 06/01/2020 Result Comment: The eGFR is calculated using the CKD-EPI formula. In most young, healthy individuals the eGFR will be >90 mL/min/1.73m2. The eGFR declines with age. An eGFR of 60-89 may be normal in some populations, particularly the elderly, for whom the CKD-EPI formula has not been extensively validated. Use of the eGFR is not recommended in the following populations:

Individuals with unstable creatinine concentrations, including patients and those with serious co-morbid conditions.

Patients with extremes in muscle mass or diet.

The data above are obtained from the National Kidney Disease Education Program (NKDEP) which additionally recommends that when the eGFR is used in patients with extremes of body mass index for purposes of drug dosing, the eGFR should be multiplied by the estimated BMI. [facility] Magnesium Lvl 2.5 1.8 - 2.4 06/01/2020 [facility] CHEM PANEL Phosphorus 3.8 2.5 - 4.5 06/01/2020 [facility] HEMATOLOGY PTT 35.6 22.9 - 35.8 06/01/2020 [facility] HEMATOLOGY PT 17.4 12.0 - 14.7 06/01/2020 [facility] HEMATOLOGY INR 1.41 0.85 - 1.17 06/01/2020 [facility] PARATHYROID PROFILE Ca Ion WB 1.10 1.05 - 1.25 06/01/2020 [facility] PARATHYROID PROFILE Ca Norm WB 1.11 1.05 - 1.25 06/01/2020 [facility] Hgb 8.3 12.0 - 16.0 05/31/2020 [facility] HEMATOLOGY Hct 26.0 36.0 - 48.0 05/31/2020 [facility] CEFTAZIDIME:SUSC:PT:ISOLATE:ORDQN:KEISHA Gram Stain Report Less Than 25 Squamous Epithelial Cells/Lpf Many WBC's Few Gram Positive Rods Rare Gram Positive Cocci Good Quality Specimen 05/31/2020 [facility] CEFTAZIDIME:SUSC:PT:ISOLATE:ORDQN:KEISHA Culture: Respiratory w/Gram Stain Many Pseudomonas aeruginosa , Multi-drug Resistant Organism Many Escherichia coli , Upon supplemental testing, this organism was confirmed to produce a carbapenamase. Multi-drug Resistant Organism Normal Respiratory Albaro Isolated 05/31/2020 [facility] CEFTAZIDIME:SUSC:PT:ISOLATE:ORDQN:KEISHA Escherichia coli Escherichia coli 05/31/2020 [facility] CEFTAZIDIME:SUSC:PT:ISOLATE:ORDQN:KEISHA Pseudomonas aeruginosa Pseudomonas aeruginosa 05/31/2020 [facility] Gram Stain Report Less Than 25 Sq uamous Epithelial Cells/Lpf Many WBC's Few Gram Positive Rods Rare Gram Positive Cocci Good Quality Specimen 05/31/2020 [facility] Culture: Respiratory w/Gram Stain M any Gram Negative Rods Identification And Sensitivity Pending . Further Testing In Progress 05/31/2020 [facility] BACTERIAL - SEROLOGY MRSA by PCR Positive 2 *ABN* (05/31/20 4:44 PM) 05/31/2020 Result Comment: "Significant Findings called to Alla Traore at 06/01/2020 08:18 by LF. Read Back OK." [facility] Ammonia 14.0 <=45.0 uMol/L 05/31/2020 [facility] Lipase Lvl 46 73 - 393 05/31/2020 [facility] BLOOD BANK RESULTS RBC product Product available (05/31/20 5:37 AM) 05/31/2020 [facility] ANEMIA STUDY Ferritin Lvl 6998 5 - 204 05/31/2020 [facility] Glucose Lvl 116 70 - 99 05/31/2020 [facility] BUN 35 7 - 22 05/31/2020 [facility] Creatinine Lvl 0.98 0.50 - 1.40 05/31/2020 [facility] Sodium Lvl 142 135 - 145 05/31/2020 [facility] Chloride Lvl 107 95 - 109 05/31/2020 [facility] CO2 28 24 - 32 05/31/2020 [facility] AGAP 11.4 10.0 - 20.0 05/31/2020 [facility] Calcium Lvl 8.2 8.5 - 10.5 05/31/2020 [facility] B/C Ratio 36 6 - 25 05/31/2020 [facility] eGFR 69 05/31/2020 Result Comment: The eGFR is calculated using the CKD-EPI formula. In most young, healthy individuals the eGFR will be >90 mL/min/1.73m2. The eGFR declines with age. An eGFR of 60-89 may be normal in some populations, particularly the elderly, for whom the CKD-EPI formula has not been extensively validated. Use of the eGFR is not recommended in the following populations:

Individuals with unstable creatinine concentrations, including patients and those with serious co-morbid conditions.

Patients with extremes in muscle mass or diet.

The data above are obtained from the National Kidney Disease Education Program (NKDEP) which additionally recommends that when the eGFR is used in patients with extremes of body mass index for purposes of drug dosing, the eGFR should be multiplied by the estimated BMI. [facility] Magnesium Lvl 2.6 1.8 - 2.4 05/31/2020 [facility] Phosphorus 4.2 2.5 - 4.5 05/31/2020 [facility] Ammonia 13.0 <=45.0 uMol/L 05/31/2020 [facility]AT[facility] WBC 26.2 3.7 - 10.4 05/31/2020 [facility] RBC 2.61 4.20 - 5.40 05/31/2020 [facility] MCV 82.7 80.0 - 98.0 05/31/2020 [facility] MCH 26.0 27.0 - 31.0 05/31/2020 [facility] MCHC 31.5 32.0 - 36.0 05/31/2020 [facility] RDW 17.5 11.5 - 14.5 05/31/2020 [facility] Platelet 296 133 - 450 05/31/2020 [facility] MPV 8.8 7.4 - 10.4 05/31/2020 [facility] PT 17.1 12.0 - 14.7 05/31/2020 [facility] INR 1.38 0.85 - 1.17 05/31/2020 [facility] PTT 40.3 22.9 - 35.8 05/31/2020 [facility] HEMATOLOGY Segs 97.6 45.0 - 75.0 05/31/2020 [facility] HEMATOLOGY Lymphocytes 1.1 20.0 - 40.0 05/31/2020 [facility] HEMATOLOGY Monocytes 1.2 2.0 - 12.0 05/31/2020 [facility] HEMATOLOGY Basophils 0.1 0.0 - 1.0 05/31/2020 [facility] HEMATOLOGY Neutrophils # 25.5 1.5 - 8.1 05/31/2020 [facility] HEMATOLOGY Lymphocytes # 0.3 1.0 - 5.5 05/31/2020 [facility] HEMATOLOGY Monocytes # 0.3 0.0 - 0.8 05/31/2020 [facility] PARATHYROID PROFILE Ca Ion WB 1.05 1.05 - 1.25 05/31/2020 [facility] PARATHYROID PROFILE Ca Norm WB 1.06 1.05 - 1.25 05/31/2020 [facility] ANEMIA STUDY Iron 23 45 - 160 05/31/2020 Result Comment: Lab test performed by:<b r/>[facility]
[address] [place] [address]
[place] [address]
MANAS ANGEL MD [facility] TIBC 126 250 - 450 05/31/2020 [facility] % Satur Fe 18 16 - 45 05/31/2020 [facility] CHEM PANEL Lactic Acid Lvl 1.2 0.5 - 2.2 05/31/2020 [facility] BLOOD BANK RESULTS RBC product Product available 6 (05/30/20 8:03 PM) 05/31/2020 Result Comment: 05/30/2020 2 1:59 [id number]
Blood available, notified Huyen Hernandez at 05/30/2020 21:59 by WX. [facility] IMMUNOLOGY Coronavirus (COVID-19) NA A Not Detected (05/30/20 7:24 PM) Not Detected 05/31/2020 [facility] CIPROFLOXACIN:SUSC:PT:ISOLATE:ORDQN:KEISHA Gram Stain Report Few WBC's Many Gram Negative Rods Many Gram Positive Cocci In Pairs 05/31/2020 [facility] CIPROFLOXACIN:SUSC:PT:ISOLATE:ORDQN:KEISHA Culture: Wound/Abscess w/Gram Stain Moderate Proteus mirabilis ESBL , Multi- drug Resistant Organism Few Escherichia coli , Upon supplemental testing, this organism was confirmed to produce a carbapenamase. , Multi-drug Resistant Organism Few Gram Pos Rods Suggestive of Diphtheroids 05/31/2020 [facility] CIPROFLOXACIN:SUSC:PT:ISOLATE:ORDQN:KEISHA Proteus mirabilis ESBL Proteus mirabilis ESBL 05/31/2020 [facility] CIPROFLOXACIN:SUSC:PT:ISOLATE:ORDQN:KEISHA Escherichia coli Escherichia coli 05/31/2020 [facility] URINE AND STOOL Occult Bld Stl Negative (05/30/20 7:17 PM) Negative 05/31/2020 [facility] FLUCONAZOLE:SUSC:PT:ISOLATE:ORDQN:GRADIENT STRIP Culture: Catheter Tip 50 CFU Deya parapsilosis 05/31/2020 [facility] FLUCONAZOLE:SUSC:PT:ISOLATE:ORDQN:GRADIENT STRIP Deya parapsilosis Deay parapsilosis 05/31/2020 [facility] Culture: Catheter Tip 50 CFU Candid a parapsilosis Susceptibility To Follow 05/31/2020 [facility] BLOOD BANK RESULTS ABO/Rh O POS 05/30/2020 [facility] BLOOD BANK RESULTS Antibody Scrn Negative (05/30/20 5:54 PM) 05/30/2020 [facility] CARDIAC ENZYMES Troponin-I 0.02 0.00 - 0.40 05/30/2020 [facility] CHEM PANEL Procalcitonin Lvl 4.14 0.00 - 0.10 05/30/2020 Result Comment: Critical Result(s) pritchett d to
at 05/30/2020 18:49 by
. Read back OK. [facility] CHEM PANEL Lactic Acid Lvl 2.8 0.5 - 2.2 05/30/2020 [facility] HEMATOLOGY RBC Morph Jen l (05/30/20 5:54 PM) Normal 05/30/2020 [facility] HEMATOLOGY Bands 6.0 0.0 - 11.0 05/30/2020 [facility] HEMATOLOGY Metamyelocytes 2.0 0.0 - 1.0 05/30/2020 [facility] HEMATOLOGY Tot Cell Ct 100 05/30/2020 [facility] HEMATOLOGY Large Plt Moder ate *ABN* (05/30/20 5:54 PM) None Seen 05/30/2020 [facility] HEMATOLOGY Fibrinogen Lvl 841 230 - 510 05/30/2020 [facility]EMAT[facility] D-Dimer 14.64 05/30/2020 [facility] URINE AND STOOL UA Fine Gran 0-2 /LPF None Seen /LPF 10/30/2018 [facility] URINE AND STOOL UA Hyal Cast 6-10 (10/29/18 11:39 PM) 0 - 2 10/30/2018 [facility] URINE AND STOOL UA Mucus Few /LPF None Seen /LPF 10/30/2018 [facility] URINE AND STOOL UA Bacteria Few /HPF None Seen /HPF 10/30/2018 [facility] URINE AND STOOL UA RBC 3-5 /HPF 0 - 2 10/30/2018 [facility] URINE AND STOOL UA WBC 3-5 /HPF None Seen /HPF 10/30/2018 [facility] URINE AND STOOL UA Sq Epi Few /LPF Few /LPF 10/30/2018 [facility] URINE AND STOOL UA Turbidity Slight Cloudy (10/29/18 11:39 PM) Clear 10/30/2018 [facility] URINE AND STOOL UA Spec Grav >=1.030 *ABN* (10/29/18 11:39 PM) <=1.030 10/30/2018 [facility] URINE AND STOOL UA Color Yellow *NA* (10/29/18 11:39 PM) Yellow 10/30/2018 [facility] URINE AND STOOL UA Blood Negative (10/29/18 11:39 PM) Negative 10/30/2018 [facility] URINE AND STOOL UA Leuk Est Negative (10/29/18 11:39 PM) Negative 10/30/2018 [facility] URINE AND STOOL UA Urobilinogen 0.2 0.1 - 1.0 10/30/2018 [facility] URINE AND STOOL UA Nitrite Negative (10/29/18 11:39 PM) Negative 10/30/2018 [facility] URINE AND STOOL UA pH 5.5 5.0 - 8.0 10/30/2018 [facility] URINE AND STOOL UA Ketones Negative *NA* (10/29/18 11:39 PM) Negative 10/30/2018 [facility] URINE AND STOOL UA Bili Negative *NA* (10/29/18 11:39 PM) Negative 10/30/2018 [facility] URINE AND STOOL UA Protein 30 mg/dL Negative mg/dL 10/30/2018 [facility] URINE AND STOOL UA Glucose Negative (10/29/18 11:39 PM) Negative 10/30/2018 [facility] CARDIAC ENZYMES Troponin-I 0.03 0.00 - 0.40 10/30/2018 [facility] CHEM PANEL Lactic Acid Lvl 1.5 0.5 - 2.2 10/30/2018 [facility] ELECTROLYTES AGAP 11.9 10.0 - 20.0 10/30/2018 [facility] ELECTROLYTES eGFR 34 10/30/2018 Result Comment: The eGFR is calculated using the CKD-EPI formula. In most young, healthy individuals the eGFR will be >90 mL/min/1.73m2. The eGFR declines with age. An eGFR of 60-89 may be normal in some populations, particularly the elderly, for whom the CKD-EPI formula has not been extensively validated. Use of the eGFR is not recommended in the following populations:

Individuals with unstable creatinine concentrations, including patients and those with serious co-morbid conditions.

Patients with extremes in muscle mass or diet.

The data above are obtained from the [employer] (NKDEP) which additionally recommends that when the eGFR is used in patients with extremes of body mass index for purposes of drug dosing, the eGFR should be multiplied by the estimated BMI. [facility] ELECTROLYTES Glucose Lvl 124 70 - 99 10/30/2018 [facility] ELECTROLYTES BUN 12 7 - 22 10/30/2018 [facility] ELECTROLYTES Potassium Lvl 3.9 3.5 - 5.1 10/30/2018 [facility] ELECTROLYTES Sodium Lvl 144 135 - 145 10/30/2018 [facility] ELECTROLYTES Creatinine Lvl 1.1 6 0.50 - 1.40 10/30/2018 [facility] ELECTROLYTES CO2 30 24 - 32 10/30/2018 [facility] ELECTROLYTES Chloride Lvl 106 95 - 109 10/30/2018 [facility] ELECTROLYTES Calcium Lvl 8.8 8.5 - 10.5 10/30/2018 [facility] HEMATOLOGY MCHC 32.2 32.0 - 36.0 10/30/2018 [facility] HEMATOLOGY MPV 9.0 7.4 - 10.4 10/30/2018 [facility] HEMATOLOGY RDW 14.1 11.5 - 14.5 10/30/2018 [facility] HEMATOLOGY MCH 29.3 27.0 - 31.0 10/30/2018 [facility] HEMATOLOGY Hct 36.6 36.0 - 48.0 10/30/2018 [facility] HEMATOLOGY Platelet 215 133 - 450 10/30/2018 [facility] HEMATOLOGY WBC 12.0 3.7 - 10.4 10/30/2018 [facility] HEMATOLOGY RBC 4.03 4.20 - 5.40 10/30/2018 [facility] HEMATOLOGY MCV 90.8 80.0 - 98.0 10/30/2018 [facility] HEMATOLOGY Hgb 11.8 12.0 - 16.0 10/30/2018 [facility] HEMATOLOGY Basophils 0.8 0.0 - 1.0 10/30/2018 [facility] HEMATOLOGY Eosinophils 1.6 0.0 - 4.0 10/30/2018 [facility] HEMATOLOGY Monocytes 6.6 2.0 - 12.0 10/30/2018 [facility] HEMATOLOGY Lymphocytes 16.1 20.0 - 40.0 10/30/2018 [facility] HEMATOLOGY Segs 74.9 45.0 - 75.0 10/30/2018 [facility] HEMATOLOGY Basophils # 0.1 0.0 - 0.2 10/30/2018 [facility] HEMATOLOGY Eosinophils # 0.2 0.0 - 0.5 10/30/2018 [facility] HEMATOLOGY Monocytes # 0.8 0.0 - 0.8 10/30/2018 [facility] HEMATOLOGY Lymphocytes # 1.9 1.0 - 5.5 10/30/2018 [facility] HEMATOLOGY Neutrophils # 9.0 1.5 - 8.1 10/30/2018 [facility] Pathology Reports No Data Provided for This Section Diagnostic Reports Report Value Date Source Chest 1 v for Placement DX Exa m: Chest 1 v for Placement DX Reason for Exam: Line Placement - Chest 1 view for line placement Comparison Exam: X-ray 06/06/[address] scan 05/31/2020 Discussion: Cardiac silhouette is within normal limits for size. Mild pulmonary vascular congestion. No pleural effusion identified. No focal lung consolidations appreciated. Tip of left-sided PICC line is seen overlying the SVC at the level of the cavoatrial junction. No appreciable evidence seen for pneumothorax. Impression: 1. Tip of left-sided PICC line is seen overlying the SVC at the level of the cavoatrial junction. 06/06/2020 [facility] Abdomen AP DX Abdomen AP DX 3:00 CDT Clinical: - Abdominal distention ileus Comparison: No prior exam. Findings: Portions of stomach, small bowel, and colon containing gas. Rectal gas is present. No gross pneumoperitoneum is seen on this portable exam. Gastrotomy tube is noted. Osteopenia is present.. Impression: Findings compatible with ileus. 06/02/2020 [facility] Chest Pulmonary Embolism CTA Chest Pulmonary Embolism CTA 05/31/2020 16:58 CDT INDICATION: - Hypoxia tachycardia elevated d-dimer COMPARISON: 05/31/2020 radiograph TECHNIQUE: Volumetric CT of the chest was acquired during pulmonary arterial phase following intravenous administration of contrast. Axial, sagittal, coronal, and oblique MIP reconstructions were created at the acquisition workstation. IV Contrast: 100 cc. Omnipaque DLP: 475 mGy-cm FINDINGS: Lower neck: Tracheostomy tube present. Heart and Mediastinum: The heart size is at upper limits of normal. Left cardiac pacing device and left trans-pleural epicardial lead is also present. No pericardial fluid collection. Thoracic aorta is normal in caliber. Pulmonary arteries: Assessment is limited by the cardiac pacing device and SVC contrast streak artifacts. No abnormal filling defects seen out through the segmental level to suggest the presence of pulmonary emboli. Lungs and Pleura: Tracheostomy tube is well above the haim. The central airways appear patent. Mild pulmonary emphysema is present. Right lower lobe and right upper lobe posterior segment patchy consolidations are present. Bibasilar dependent atelectasis is present. Lymph Nodes: No mediastinal, hilar, or axillary lymphadenopathy. Upper abdomen: Visualized portions of the upper abdomen are unremarkable. Bones and soft tissues: Osteopenia. Mild T6 and L1 chronic vertebral compression fracture deformities are present. Mildly exaggerated thoracic spine kyphosis. IMPRESSION: 1. No evidence seen for pulmonary embol i out through the segmental level, within limitation of streak artifacts as above. 2. Small right upper and lower lobe con solidations suspicious for pneumonia. 3. Please see additional comments above . 05/31/2020 [facility] Liver US EXAM: Liver US DATE: 05/31/2020 15:27 CDT. INDICATION: Transaminitis. COMPARISON: None available. TECHNIQUE: Multiplanar grayscale and color Doppler ultrasound of the right upper quadrant. FINDINGS: LIVER * Craniocaudal length: 18.7 cm. * Echogenicity: Unremarkable. * Surface nodularity: Normal. * Mass (size and location): None. VESSELS AND FREE FLUID * Portal vein: Normal. * Ascites: None. GALLBLADDER * General comments: Abnormal. * Gallstones/polyps: No definite stones are identified. There are a few, echogenic foci within the dependent and nondependent aspects of the gallbladder body and neck, suggestive of adenomyomatosis (image 57). An example lesion measures 0.3 cm with posterior acoustic enhancement (image 60). * Gallbladder sludge: None. * Gallbladder wall: 0.24 cm. * Pericholecystic fluid: None. * Sonographic Vides sign: Absent. BILE DUCTS * Common bile duct diameter: 0.45 cm. * Intrahepatic ducts: Normal. PANCREAS * Not seen due to overlying bowel gas. IMPRESSION: 1. Hepatomegaly. 2. No definite gallstones are seen. Kelle pected mild adenomyomatosis. No sonographic evidence for acute cholecystitis. 05/31/2020 [facility] Ext Lower Venous Doppler Bilat US EXAM: Ext Lower Venous Doppler Bilat US DATE: 05/31/2020 15:16 CDT. INDICATION: Elevated d-dimer lower extremity edema. COMPARISON: None available. TECHNIQUE: Multiplanar grayscale, color Doppler and spectral Doppler ultrasound of the bilateral lower extremity veins. FINDINGS: Suboptimal evaluation due to the patient's limited mobility. RIGHT LOWER EXTREMITY VEINS * Common Femoral: Patent. * Femoral (SFV): Patent. * Popliteal: Patent. * Proximal Greater Saphenous: Patent. * Deep Femoral Veins: Patent. * Anterior Tibial: Not seen. * Posterior Tibial: Patent. * Peroneal: Patent. LEFT LOWER EXTREMITY VEINS * Common Femoral: Patent. * Femoral (SFV): Patent. * Popliteal: Patent. * Proximal Greater Saphenous: Patent. * Deep Femoral Veins: Patent. * Anterior Tibial: Not seen. * Posterior Tibial: Patent. * Peroneal: Not seen. Other: None. IMPRESSION: No deep venous thrombosis (DVT) is identified within the visible BILATERAL lower extremity veins. 05/31/2020 [employer] [facility] Chest 1view DX Chest 1view DX 05/31/2020 3:00 CDT Clinical: Pneumonia Comparison: 05/30/2020 exam. Findings: The right lung consolidation is mildly improved. The tracheostomy tube is stable. The heart size is within normal limits for portable technique. Stable left cardiac pacing device. Impression: Mildly improved right lung consolidation. 05/31/2020 [facility] ED Abdomen/Pelvis IV contrast only CT ED Abdomen/Pelvis IV contrast only CT 05/30/2020 6:16 PM CDT INDICATION: - vomiting, abd distension COMPARISON: None. TECHNIQUE: Helical acquisition of the abdomen and pelvis was obtained from the lung bases to the pubic symphysis. Axial, sagittal and coronal images MPR were interpreted. This exam was performed according to our department dose optimization protocol, which includes automated exposure control, adjustment of the mA and/or kV according to patient size and/or use of iterative reconstruction technique. IV contrast: 75 cc Omnipaque 300 Enteric contrast: None. DLP: 636 mGy-cm FINDINGS: Lower thorax: Left-sided dual-lead automatic implantable cardiac defibrillator pacemaker is partially visualized with additional epicardial lead between the left major fissure partially visualized. There is patchy airspace disease involving the right lower lobe.. Liver: Unremarkable. Gallbladder and Biliary tree: Gallbladder contracted limiting evaluation without evidence of calcified gallstone. No biliary dilatation. Pancreas: Unremarkable. Spleen: Unremarkable. Adrenals: Unremarkable. Kidneys and ureters: Unremarkable. Urinary bladder: Decompressed limiting evaluation but grossly unremarkable Reproductive organs: Absent. Gastrointestinal tract: Mild gaseous and fluid distention of the stomach. No small bowel dilatation. Minimal diverticulosis, without evidence of diverticulitis. Appendix: Unremarkable, best seen series 2, image 52. Peritoneum, mesentery and retroperitoneum: Unremarkable. No peritoneal fluid. No pneumoperitoneum. Lymph nodes: Unremarkable. Vasculature: Normal enhancement of mesenteric vessels. No abdominal aortic aneurysm. Bones: Mild anterior wedge deformity of the L2 vertebral body with superior endplate Schmorl's node appears chronic. L5-S1 retrolisthesis is noted with moderate neural foraminal narrowing screw. Sclerosis suggesting left femoral head avascular necrosis. Lower thoracic diffuse idiopathic skeletal hyperostosis is partially visualized. Soft tissues: Bilateral lower flank/buttock anasarca Other: None. IMPRESSION: 1. Right lower lobe airspace disease, p ossibly due to pneumonia. 2. Mild gaseous and fluid distention of the stomach 3. Mild compression deformity of the L2 vertebral body appears chronic, though correlate for focal tenderness in the region. 4. Left femoral head avascular necrosis . See further details above. 05/30/2020 [employer] [facility] Brain wo contrast CT EXAMINATI ON: Noncontrast Head CT HISTORY: - AMS; TECHNIQUE: Noncontrast CT of the brain was performed with axial images acquired from skull base to vertex. Sagittal and coronal reconstructions were performed by the technologist and sent to the workstation for review. This exam was performed according to our departmental dose-optimization program which includes automated exposure control, adjustment of the mA and/or kV according to patient size and/or use of iterative reconstruction technique. IV Contrast: None. DLP: 628 mGy-cm COMPARISON: None available. FINDINGS: BRAIN: There are no acute intra or extra-axial fluid collections. There is mild diffuse cerebral volume atrophy. No mass effect or midline shift is present. The verduzco-white matter differentiation is normal. SKULL: No fractures are identified. VENTRICLES / SULCI / CISTERNS: Ventricles are of normal size, shape, and morphology. The basal cisterns are patent. ORBITS, PARANASAL SINUSES AND MASTOIDS: There is opacification of the bilateral mastoid air cells. There is minimal mucosal thickening within the sphenoid sinuses. The visualized portions of the orbits and paranasal sinuses are otherwise normal. OTHER: There is atherosclerotic calcification of the intracranial vasculature. IMPRESSION: 1. No CT evidence of acute intracranial pathologic process. 2. Opacification of bilateral mastoid ai r cells which is nonspecific, but may be seen in the setting of mastoiditis. 05/30/2020 [facility] Chest 1view DX SINGLE VIEW RAEANN ST X-RAY. 05/30/2020 5:15 PM CDT INDICATION: - Undifferentiated Sepsis TECHNIQUE: Single frontal view of the chest was performed. COMPARISON: Chest x-rays 10/29/2018 FINDINGS: Interval tracheostomy with tip overlying the trachea level of the abdomen heads. Large area of patchy opacity in the right hilar region in the right lower lobe. Increased bilateral perihilar interstitial opacities, worse in the right lung. No pneumothorax or significant effusions. The cardiomediastinal silhouette is stable. Left pacing device Osseous structures are unchanged. Gaseous distention of the stomach. IMPRESSION: Predominantly right lung multifocal pneumonia, possibly atypical infectious process, including viral pneumonia. Interval tracheostomy. 05/30/2020 [employer] [facility] Chest 1view DX EXAM: XR CHEST 1 VIEW DATE: 10/29/2018 18:53 WINDER HAND INDICATION: - dyspnea hx copd, cough COMPARISON: None TECHNIQUE: AP chest FINDINGS: Dual-lead automatic implantable cardiac defibrillator device is noted with leads in satisfactory position. Lungs are clear. No focal consolidation. No pleural effusions or pneumothorax. Cardiomediastinal silhouette is normal for technique. No acute osseous abnormality. Note made of bilateral acromioclavicular and glenohumeral degenerative changes. Soft tissues are within normal limits. IMPRESSION: No acute radiographic abnormality 10/29/2018 [facility] Consultation Notes No Data Provided for This Section Discharge Summaries No Data Provided for This Section History and Physicals No Data Provided for This Section Vital Signs Vital Sign Value Date Comments Source Systolic (mm Hg) 105 06/06/2020 [facility] Diastolic (mm Hg) 55 06/06/2020 [facility] Respitory Rate 20 06/06/2020 [facility] Heart Rate 69 06/06/2020 [facility] Systolic (mm Hg) 119 06/06/2020 [facility] Diastolic (mm Hg) 60 06/06/2020 [facility] Respitory Rate 20 06/06/2020 [facility] Heart Rate 74 06/06/2020 [facility] Heart Rate 77 06/06/2020 [facility] Respitory Rate 18 06/06/2020 [facility] Systolic (mm Hg) 142 06/06/2020 [facility] Diastolic (mm Hg) 66 06/06/2020 [facility] Temperature Oral (F) 98.6 F 06/05/2020 [facility] Temperature Oral (F) 98.7 F 06/05/2020 [facility] Temperature Oral (F) 98.1 F 06/04/2020 [facility] Heart Rate 71 06/03/2020 [facility] Respitory Rate 21 06/03/2020 [facility] Systolic (mm Hg) 151 06/03/2020 [facility] Diastolic (mm Hg) 68 06/03/2020 [facility] Heart Rate 77 06/03/2020 [facility] Respitory Rate 22 06/03/2020 [facility] Systolic (mm Hg) 169 06/03/2020 [facility] Diastolic (mm Hg) 75 06/03/2020 [facility] Heart Rate 70 06/02/2020 [facility] Systolic (mm Hg) 156 06/02/2020 [facility] Diastolic (mm Hg) 76 06/02/2020 [facility] Respitory Rate 26 06/02/2020 [facility] Height 165.1 cm 06/01/2020 [facility] Height 165.1 cm 06/01/2020 [facility] Height 165.1 cm 06/01/2020 [facility] Weight 59.6 05/31/2020 [place] BMI Calculated 21.87 05/31/2020 [facility] Temperature Oral (F) 99.1 F 05/31/2020 [place] BMI Calculated 26.35 05/30/2020 [place] Weight 61.2 05/30/2020 [facility] Systolic (mm Hg) 155 10/30/2018 [facility] Diastolic (mm Hg) 73 10/30/2018 [facility] Temperature Oral (F) 98.7 F 10/30/2018 [facility] Heart Rate 63 10/30/2018 [facility] Respitory Rate 18 10/30/2018 [facility] Respitory Rate 18 10/30/2018 [facility] Systolic (mm Hg) 156 10/30/2018 [facility] Diastolic (mm Hg) 74 10/30/2018 [facility] Temperature Oral (F) 99.2 F 10/30/2018 [facility] Heart Rate 79 10/30/2018 [facility] Temperature Oral (F) 97.9 F 10/30/2018 [facility] Heart Rate 73 10/30/2018 [facility] Systolic (mm Hg) 156 10/30/2018 [facility] Diastolic (mm Hg) 74 10/30/2018 [facility] Respitory Rate 18 10/30/2018 [facility] BMI Calculated 25.56 10/30/2018 [facility] Weight 61.364 10/30/2018 [facility] Height 154.94 cm 10/30/2018 [facility] Height 61 1 [facility] Diastolic (mm Hg) 91 07/26/2018 [facility] Systolic (mm Hg) 161 07/26/2018 [facility] Weight 128.0 07/26/2018 [facility] Height 61 0 01/05/2017 [facility] Diastolic (mm Hg) 64 01/05/2017 [facility] Systolic (mm Hg) 112 01/05/2017 [facility] Weight 118.4 01/05/2017 [facility] Height 61 0 11/24/2016 [facility] Diastolic (mm Hg) 64 11/24/2016 [facility] Systolic (mm Hg) 124 11/24/2016 [facility] Weight 121.2 11/24/2016 [facility] Encounters Location Location Details Encounter Type Encounter Number Reason For Visit Attending Provider ADM Date DC Date Status Source Rheumatology Clinic shoulder/back pain [id number] 11/24/2016 11/24/2016 [facility] Observation [id number] Wisam Lee 10/30/2018 10/30/2018 [facility] [place] Inpatient [id number] Kim Damon 05/30/2020 06/07/2020 [facility] Procedures Procedure Code Date Perfomer Comments Source Abdominal hysterectomy [id number] 10/04/1972 [facility] [place] Assessment and Plan Assessment and Plan Date Source Extracted from:Title: General Surgery Co nsult Note Author: Marshall Garrido MD Date: 06/05/20 69-year-old femalewith multiple medical problemswho initially presented with anemia, worsening hypoxia, and abdominal distention. She was recently discharged from the ICU andis currently on the floor. General surgery was consulted for a stage IV sacral decubitus ulcer. Seen and examined with Dr. Ayala Patientlab work and imaging reviewed She does have a stage IV sacral decubitus ulcer with some necrotic tissue at the edges She may benefit from sharp debridement of some of this tissue butwould trial enzymatic debridement firstwith topical agents such as Santyl Discussed plan with nursing staff. Will triallocal wound care for now General surgery will continue to follow Please feel free to contact me with any questions or concerns, Marshall Garrido MD General Surgery - PGY 4 Pager - [phone] Please feel free to contact me with any questions or concerns, Marshall Garrido MD General Surgery - PGY 4 Pager - [phone] I have seen and examined this patient with Marshall Garrido MD on June 05, 2020. I reviewed the consultation note. I reviewed pertinent radiology and laboratory. I agree with the assessment of 69-year-old female with multiple medical problems includingchronic blood loss anemia,hypertension, COPD, chronic respiratory failure status post tracheostomy and PEG tube, stage IV decubitus ulcer with osteomyelitis who is been admitted forpneumonia and possible osteomyelitis as well. We have been asked to evaluate the patient forpossible surgical debridement. I also agree with plan as listedand secondary to her respiratory issues with defer on any formal surgery at this point and would continuetissue separationtopical agent such as Santylas there is no undermining seen. The wound bed itself is clean however theboth lateral aspects to contain some necrotic skin and subcutaneous tissues down to the level of the fascia. These can be easily and debrided at bedside aftera period of treatment with Santyl as well as the currentDakin's solution she is receiving for dressing changes. We will communicate this to the wound care team as well as the primary care service. We have done a dressing change today with the nursing service. Extracted from:Title: History and Physical Author: Kim Damon MD Date: 05/30/20 1.Acute sepsis(A41.9) Chest x-ray showed some evidence of pneumonia. Patient has significantly elevated white cell count, elevated lactic acid and pro-Enio. Patient was also hypotensive and tachycardic on arrival which responded to IV fluids. Patient also has stage IV sacral decub. Cultures has been sent. Reportedly patient hadcultures positive with ESBL Proteus. Start patient on broad-spectrum antibiotics. Patient also has some mild abdominal distention. Follow-up on the CT of the abdomen pelvis. Consult infectious disease. Ordered: 2.Chronic respiratory failure(J96.10) Patient is on chronictrach/mechanically ventilated. Pulmonology has been consulted. Monitor respiratory status, nebs treatment. Ordered: 3.Pneumonia(J18.9) Continue empiric antibiotics, follow-up on culture data. COVID 19 test is pending. We will obtain CT chest. 4.Sacral decubitus ulcer, stage IV(L89.154) Wound culture has been sent. Consult wound care. Continue antibiotics. Ordered: 5.Anemia(D64.9) No evidence of active bleeding. Patient to receive PRBC transfusion. Follow-up on occult bloodtest. PPI. GI consult. 6.Toxic metabolic encephalopathy(G92) CT of the head did not show any acute interval abnormalities. Change in mental status is likely related to sepsis. 7.Abnormal LFTs(R94.5) Likely related to sepsis causing hepatic congestion. Repeat LFTs in a.m. 8.Chronic obstructive pulmonary disease (COPD)(J44.9) Continue vent support,inhalers,IV steroids. Pulmonology consulted. Ordered: GI DVT prophylaxis. No anticoagulation due to anemia. Inpatient ICU status. 06/07/2020 [facility] Extracted from:Title: General Admission Author: Betzy Ang MD Date: 05/31/20 Impression and Plan Diagnosis Toxic metabolic encephalopathy ([id number] G92, Working, Medical). Sacral decubitus ulcer, stage IV (PFE17-QK L89.154, Working, Medical). Protein-calorie malnutrition, severe (PVJ99-VC E43, Working, Medical). Pneumonia (ZHL28-EX J18.9, Working, Medical). Chronic respiratory failure (HAY25-CA J96.10, Working, Medical). Acute sepsis (GGN18-FB A41.9, Working, Medical). Patient is a facility dwelling 69-year-old female who presents from facility with hypotension, leukocytosis, change in her mental status. She is currently in the ICU where she is being managed. She is seen today for evaluation of her stage IV sacral ulcer. Wound description as noted above. Care will be started with a Dakin's wet-to-dry change every shift, if no improvement noted in the wound, will consult surgery for possible intervention. Within the wound bed with a small bone pieces, a sample was sent to pathology for evaluation of osteomyelitis, wound culture report pending and patient currently on IV antibiotics. In addition to local wound care, she will need pressure relief of her wound, low air loss mattress already ordered, feeding will need to be optimized, prompt incontinence care will also be beneficial. I performed initial care with Vashe which was well-tolerated, will order a Dakin's for continued care. Plan of care discussed with patient's the care team present at the bedside at time of ev aluation. Patient continues to be a very high risk of developing more pressure ulcers and worsening of her current ulcer because of bedbound status, incontinence, need for total care. Will continue to follow patient alongside care team and make recommendations for her wound care as needed. Thank you for the consult and the opportunity to participate in patient's care. Reviewed labs reviewed imaging. Extracted from:Title: History and Physical Author: Kim Damon MD Date: 05/30/20 1.Acute sepsis(A41.9) Chest x-ray showed some evidence of pneumonia. Patient has significantly elevated white cell count, elevated lactic acid and pro-Enio. Patient was also hypotensive and tachycardic on arrival which responded to IV fluids. Patient also has stage IV sacral decub. Cultures has been sent. Reportedly patient hadcultures positive with ESBL Proteus. Start patient on broad-spectrum antibiotics. Patient also has some mild abdominal distention. Follow-up on the CT of the abdomen pelvis. Consult infectious disease. Ordered: 2.Chronic respiratory failure(J96.10) Patient is on chronictrach/mechanically ventilated. Pulmonology has been consulted. Monitor respiratory status, nebs treatment. Ordered: 3.Pneumonia(J18.9) Continue empiric antibiotics, follow-up on culture data. COVID 19 test is pending. We will obtain CT chest. 4.Sacral decubitus ulcer, stage IV(L89.154) Wound culture has been sent. Consult wound care. Continue antibiotics. Ordered: 5.Anemia(D64.9) No evidence of active bleeding. Patient to receive PRBC transfusion. Follow-up on occult bloodtest. PPI. GI consult. 6.Toxic metabolic encephalopathy(G92) CT of the head did not show any acute interval abnormalities. Change in mental status is likely related to sepsis. 7.Abnormal LFTs(R94.5) Likely related to sepsis causing hepatic congestion. Repeat LFTs in a.m. 8.Chronic obstructive pulmonary disease (COPD)(J44.9) Continue vent support,inhalers,IV steroids. Pulmonology consulted. Ordered: GI DVT prophylaxis. No anticoagulation due to anemia. Inpatient ICU status. 06/03/2020 [employer] Extracted from:Title: History and Physic al Author: Theresa Brown DO Date: 10/30/18 68 year old female with shortness of david ath and dyspnea on exertion. 1.COPD exacerbation(J44.1) Continue with duonebs. Continue with oxygen and wean to room air. Hold coreg.Discharge with inhalers and follow up with pulmonary for outpatient pulmonary function tests. Ordered: Admit/Condition, 10/30/18 0:17:00 [facility] [employer], Status: Out Patient with Observation Services, Acute, Location: COU, Expected LOS: 1 Midnight, Wisam Lee MD, Admit MD Review/Approve Yes, Isolation: No Isolation/Standard Precautions, COPD exacerbation 2.Nicotine dependence with withdrawal(F17.203) Start nicotine patch. Discussed cessation. 3.CAD (coronary artery disease)(I25.10) Continue with statin. Patient believes she had an AMI in the past and that's why she has an AICD. 4.Chronic CHF(I50.9) Not confirmed diagosis. However, patient has AICD as a result from AMI.Continue with lasix, lisinopril. Hold coreg. 5.Depression(F32.9) Continue with escitalopram 6.Chronic GERD(K21.9) Continue with protonix. [facility] is primary service. Please page [phone] for questions. Ambulatory DC pending medical clearance. 10/30/2018 [facility] Plan of Care No Data Provided for This Section Social History Social History Date Source Social History TypeResponse Alcohol Alcohol use interferes with work or home: No. Substance Abuse IV drug use: No. Smoking Status Never smoker; Exposure to Tobacco Smoke None; Cigarette Smoking Last 365 Days No; Reg Smoking Cessation Counseling No entered on: 10/29/18 10/30/2018 [facility] Social History TypeResponse Alcohol Alcohol use interferes with work or home: No. Substance Abuse IV drug use: No. Smoking Status Never smoker; Exposure to Tobacco Smoke None; Cigarette Smoking Last 365 Days No; Reg Smoking Cessation Counseling No entered on: 10/29/18 10/30/2018 [employer] Social History ElementQualifiersDate Rep orted Smoking status: . Are you a: Current Smoker 20 Years Nov 24, 2016 alcohol no. Nov 24, 2016 11/24/2016 [place] [place] Family History No Data Provided for This Section Advance Directives No Data Provided for This Section Functional Status No Data Provided for This Section
[2020-07-15 19:39] LABS: BASOPHILS % 0.1 % (0.0-1.0); EOSINOPHILS # (AUTO) 0.1 (0.0-0.4); EOSINOPHILS % 1.6 % (0.0-6.0); LYMPHOCYTES # (AUTO) 0.7 (1.0-3.2); LYMPHOCYTES % 8.2 % (18.0-39.1); MEAN CORPUSCULAR HEMOGLOBIN 25.8 pg (28-32); MEAN CORPUSCULAR HGB CONC 29.1 g/dL (31-35); MEAN CORPUSCULAR VOLUME 88.4 fL (81-99); MONOCYTES # (AUTO) 0.5 (0.2-0.8); MONOCYTES % 5.4 % (4.4-11.3); NEUTROPHILS # (AUTO) 7.6 (2.1-6.9); NEUTROPHILS % 83.9 % (38.7-80.0); RED BLOOD COUNT 1.98 x10e6/uL (3.6-5.1)
[2020-07-15 19:43] LABS: HEMATOCRIT 17.5 % (34.2-44.1); HEMOGLOBIN 5.1 g/dL (12.0-16.0); PLATELET COUNT 47 x10e3/uL (140-360)
[2020-07-15] MEDS ORDERED: SODIUM CHLORIDE 0.9% 250ML 250 ML IV ONE (19:45)
[2020-07-15 19:57] LABS: ALBUMIN 1.4 g/dL (3.5-5.0); ALBUMIN/GLOBULIN RATIO 0.3 (0.8-2.0); CREATININE, SERUM 1.44 mg/dL (0.57-1.11)
--- NOTE | 2020-07-15 20:19 | Emergency Department Note ---
History of Present Illnes History of Present Illness Chief Complaint: General Medicine Complaints History of Present Illness This is a 70 year old female Chief Complaint Comment 70 Y/O F, CHRONIC TRACH TO VENT BROUGHT TO ED BY EMS FOR ABNORMAL LABS (HGB/HCT). PT UNABLE TO COMMUNICATE. NAD NOTED. PT WITH HX CHRONIC ANEMIA. LUE DL PICC LINE IN PLACE. Historian: Patient, Medical Record Arrival Mode: [employer] Required: No Onset (how long ago): unknown Location: Blood Quality: Anemia Radiation: Reports non-radiation Severity: unable to specify Onset quality: unable to specify Duration (how long): month(s) Timing of current episode: unable to specify Progression: worsening Chronicity: chronic Context: Denies recent illness, Denies recent surgery Relieving factors: none Exacerbating factors: none Associated symptoms: Reports denies other symptoms Treatments prior to arrival: none Past Medical/Family History Physician Review I have reviewed the patient's past medical and family history. Any updates have been documented here. 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 PNEUMONIA Past Surgical History: Hysterectomy Other Surgery: TRACH PEG Social History Smoking Cessation: Unknown if ever smoked Alcohol Use: None Any Illegal Drug Use: No Physically hurt or threatened: No Other Any Pre-Existing Lines (PICC,: Yes (LUE DL PICC) Review of Systems ROS Narrative Unable to obtain ROS: Unable to obtain due to (Trached patient) Physical Exam Related Data Allergies: Coded Allergies: aspirin (Verified Allergy, Unknown, 06/11/20) Uncoded Allergies: PENICILLIN (Allergy, Unknown, 06/11/20) Triage Vital Signs Vital Signs Date Time Temp Pulse Resp B/P (MAP) Pulse Ox O2 Delivery O2 Flow Rate FiO2 07/15/20 19:30 95.8 74 19 93/81 97 Ventilator 40 Vital signs reviewed: Yes Physical Exam CONSTITUTIONAL Constitutional: Present well-developed, Present well-nourished HENT HENT: Present normocephalic, Present atraumatic, Present oropharynx clear/moist, Present nose normal, Present other (Trached) HENT L/R: Present left ext ear normal, Present right ext ear normal EYES Eyes: Reports PERRL, Reports conjunctivae normal NECK Neck: Present ROM normal PULMONARY Pulmonary: Present effort normal, Present breath sounds normal CARDIOVASCULAR Cardiovascular: Present regular rhythm, Present heart sounds normal, Present capillary refill normal, Present normal rate GASTROINTESTINAL Abdominal: Present soft, Present nontender, Present bowel sounds normal GENITOURINARY Genitourinary: Present exam deferred SKIN Skin: Present warm, Present dry MUSCULOSKELETAL Musculoskeletal: Present ROM normal NEUROLOGICAL Neurological: Absent cranial nerve deficit, Absent sensory deficit PSYCHOLOGICAL Psychological: Present other (Unable to assess, trached) Results Laboratory Result Diagram: 07/15/20191907/15/201919 Laboratory Laboratory Tests Test 07/15/20 19:20 White Blood Count 9.01 x10e3/uL (4.8-10.8) Red Blood Count 1.98 x10e6/uL (3.6-5.1) Hemoglobin 5.1 g/dL (12.0-16.0) Hematocrit 17.5 % (34.2-44.1) Mean Corpuscular Volume 88.4 fL (81-99) Mean Corpuscular Hemoglobin 25.8 pg (28-32) Mean Corpuscular Hemoglobin Concent 29.1 g/dL (31-35) Red Cell Distribution Width 18.0 % (11.7-14.4) Platelet Count 47 x10e3/uL (140-360) Neutrophils (%) (Auto) 83.9 % (38.7-80.0) Lymphocytes (%) (Auto) 8.2 % (18.0-39.1) Monocytes (%) (Auto) 5.4 % (4.4-11.3) Eosinophils (%) (Auto) 1.6 % (0.0-6.0) Basophils (%) (Auto) 0.1 % (0.0-1.0) Neutrophils # (Auto) 7.6 (2.1-6.9) Lymphocytes # (Auto) 0.7 (1.0-3.2) Monocytes # (Auto) 0.5 (0.2-0.8) Eosinophils # (Auto) 0.1 (0.0-0.4) Basophils # (Auto) 0.0 (0.0-0.1) Absolute Immature Granulocyte (auto 0.07 x10e3/uL (0-0.1) Sodium Level 140 mmol/L (136-145) Potassium Level 5.0 mmol/L (3.5-5.1) Chloride Level 99 mmol/L (98-107) Carbon Dioxide Level 30 mmol/L (22-29) Anion Gap 16.0 mmol/L (8-16) Blood Urea Nitrogen 79 mg/dL (7-26) Creatinine 1.44 mg/dL (0.57-1.11) Estimat Glomerular Filtration Rate 44 ML/MIN (60-) BUN/Creatinine Ratio 55 (6-25) Glucose Level 90 mg/dL (74-118) Calcium Level 9.0 mg/dL (8.4-10.2) Total Bilirubin 0.3 mg/dL (0.2-1.2) Aspartate Amino Transf (AST/SGOT) 27 IU/L (5-34) Alanine Aminotransferase (ALT/SGPT) 18 IU/L (0-55) Alkaline Phosphatase 304 IU/L (40-150) Total Protein 5.8 g/dL (6.5-8.1) Albumin 1.4 g/dL (3.5-5.0) Globulin 4.4 g/dL (2.3-3.5) Albumin/Globulin Ratio 0.3 (0.8-2.0) Lab results reviewed: Yes Assessment & Plan Medical Decision Making MDM 70-year-old female with chronic anemia sent to the emergency department for hemoglobin of 5. Hemoglobin was checked and is 5. 3 units of blood was ordered and was admitted to Dr. Kim. Reassessment Reassessment time: 20:41 Reassessment NAD Assessment & Plan Final Impression: (1) Chronic anemia Depart Disposition: ADMITTED Last Vital Signs Date Time Temp Pulse Resp B/P (MAP) Pulse Ox O2 Delivery O2 Flow Rate FiO2 07/15/20 19:50 95.8 80 20 95/80 97 Mechanical Ventilator 07/15/20 19:30 40 Medications in the ED Sodium Chloride 250 ml @ 0 mls/hr ONCE ONCE IV ; Start 07/15/20 at 19:45; Stop 07/15/20 at 19:46; Status DC ANTIONETTE FERNANDEZ MD Jul 15, 2020 20:19
--- OUTSIDE RECORDS SUMMARY | 2020-07-15 21:04 | XMS REPORT | Continuity of Care Document ---
Author Author [facility] [employer], [facility] [employer] Address Unknown Phone Unavailable Care Team Providers Care Correction Warden Name Role Phone [employer] Unavailable Un available Problems Problem Status Onset Date Classification Date Reported Comments Source Methicillin resistant Staphylococcus aureus (organism) Active 05/31/2020 Problem 06/08/2020 Nares, PCR+, 2019 Problem added by Discern Expert. [place] Escherichia coli (organism) Ac tive 05/31/2020 Problem 06/08/2020 Sputum, 05/31/2020 Sacral Wound, 05/30/2020 Problem added by Discern Expert. [place] ACUTE SEPSIS CHRONIC RESPIRATORY FAILURE Active 05/30/2020 [place] UNRESPONSIVE Active 05/30/2020 [place] Proteus (organism) Active 05/30/2020 Problem 06/08/2020 sacral wound, ESBL+, 05/30/2020 Problem added by Discern Expert. [facility] Chronic obstructive pulmonary disease wi th (acute) exacerbation 11/26/2018 05/19/2019 [facility] DYSPNEA Active 10/29/2018 [facility] COPD Active 10/29/2018 [facility] SOB Active 0 10/29/2018 [facility] Osteoarthritis involving multiple joints on both sides of body Active Prob gagan 07/28/2018 [facility] Najam Lumbago with sciatica, left side Active Problem Lovely Najam Pain in left shoulder Active Diagnosis 07/28/2018 Lovely Najam Counseling NOS Active Diagnosis 07/28/2018 Lovely Najam Pain in right shoulder Active Diagnosis 07/28/2018 Lov[facility] Najam Nicotine dependence, cigarettes, with withdrawal 05/19/2019 [facility] Atherosclerotic heart disease of [place] coronary artery without angina pectoris 05/19/2019 [facility] Heart failure, unspecified 05/19/2019 [facility] Major depressive disorder, single episode, unspecified 05/19/2019 [facility] Gastro-esophageal reflux disease without esophagitis 05/19/2019 [facility] 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 05/19/2019 [facility] Migraine, unspecified, not intractable, without status migrainosus 05/19/2019 [facility] Old myocardial infarction 05/19/2019 [facility] 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 (disorder) Active Problem 06/08/2020 [facility] D-dimer above reference range (finding) Active Problem 06/08/2020 [facility] Deficiency of macronutrients (disorder) Active Problem 06/08/2020 [facility] Chronic obstructive bronchitis (disorder) Active Problem 06/08/2020 [facility] Hypertensive disorder, systemic arterial (disorder) Resolved Problem 06/08/2020 [facility] Swollen abdomen (finding) Acti ve Problem 02/2020 [facility] Pseudomonas (organism) Active Problem 06/08/2020 Problem added by Discern Expert. [facility] DYSPNEA, UNSPECIFIED Active [facility] SEPSIS, UNSPECIFIED ORGANISM A ctive [facility] CHRONIC RESPIRATORY FAILURE, UNSP W HYPO Active [facility] PRESSURE ULCER OF SACRAL REGION, STAGE 4 Active [facility] Medications Medication Details Route Status Patient Instructions Ordering Provider Order Date Source Saline Flush 0.9% Notes: (Same as: BD Posiflush) Inactive 06/06/2020 [facility] losartan 50 mg oral tablet 100 mg = 2 tab, PO, Daily, 0 Refill(s) Active 06/06/2020 [facility] collagenase topical 250 units/g ointment 1 appl, TOP, Daily, 0 Refill(s) Active 06/06/2020 [facility] fluconazole 200 mg oral tablet 200 mg = 1 tab, PEG, Daily, X 5 day, # 5 tab, 0 Refill(s), other Active 06/06/2020 [facility] ocular lubricant 1 appl, BOTH EYES, Q6H, 0 Refill(s) Active 06/06/2020 [facility] Sodium Hypochlorite 1.25 MG/ML Topical Solution 1 appl, TOP, Daily, 0 Refill(s) Active 06/06/2020 [facility] meropenem 500 mg intravenous injection 500 mg, IV, Q6H, X 35 day, # 140 ea, 0 Refill(s), other Active 06/06/2020 [facility] Saline Flush 0.9% Notes: (Same as: BD Posiflush) Inactive 06/06/2020 [facility] Santyl Notes: (Same As: Santyl) Inactive 06/06/2020 [place] Losartan Notes: (Same as: Ludmila bolivar) No Longer Active 06/05/2020 [place] Losartan Notes: (Same as: Ludmila bolivar) Inactive 06/04/2020 [place] Labetalol 10 mg, 2 mL, Route: IV, Drug form: INJ, ONCE, Dosing Weight 59.6, kg, Start date: 06/03/20 5:40:00 CDT, Stop date: 06/03/20 5:40:00 CDT, 0 Inactive 06/03/2020 [place] Escitalopram Notes: (Same as: Lexapro) No Longer Active 06/02/2020 [place] Famotidine 20 MG Oral Tablet N otes: (Same as: Pepcid) No Longer Active 06/02/2020 [place] Folic Acid Notes: (Same as: Fo lvite) No Longer Active 06/02/2020 [place] Furosemide 40 MG Oral Tablet [Lasix] Notes: (Same as: Lasix) May cause GI upset. Give with food or milk. No Longer Active 06/02/2020 [place] Losartan Notes: (Same as: Ludmila bolivar) No Longer Active 06/02/2020 [place] multivitamin Notes: (Same as:Roderick saini) WASTE: F/P - Black; E - Municipal Trash Bin Take with food. No Longer Active 06/02/2020 [place] Zinc Sulfate Notes: (Zinc sulf ate capsule) - 220 mg Zinc sulfate = 50 mg elemental zinc Same as Zinc Sulfate No Longer Active 06/02/2020 [place] atorvastatin Notes: (Same as: Lipitor) No Longer Active 06/02/2020 [place] Fluconazole Notes: (Same as: D iflucan) Do not refrigerate Hazardous Drug Group 3:Reproductive risk Hazardous Drug -- Refer to safe handling procedure PPE Matrix No Longer Active 06/01/2020 [place] ferrous sulfate Notes: Give wi th food. "Do Not Crush" No Longer Active 06/01/2020 [place] Amiodarone Notes: (Same as: Co rdarone) No Longer Active 06/01/2020 [place] carvedilol Notes: Give with fo od. (Same As: Coreg) No Longer Active 06/01/2020 [place] Solu-Medrol Notes: (Same as:So akshat-MEDROL, A-Methapred) No Longer Active 06/01/2020 [place] Dakins Solution 1 appl, Route: TOP, BID, Drug form: SOLN, Start date: 06/01/20 9:00:00 CDT, Duration: 30 day, Stop date: 06/30/20 17:00:00 CDT Inactive 06/01/2020 [place] Dakins Quarter Strength Solution Notes: (Dakin's (0.125%=1/4 strength) 473ml top SOLN) For external use only. Note: quarter strength = 0.125% sodium hypochlorite. No Longer Active 06/01/2020 [place] Omnipaque 350 injectable solution Notes: (same as:Omnipaque 350). WASTE: F/P - Black; E - Municipal Trash Bin Inactive 06/01/2020 [place] Vancomycin 2001 mg: infuse ov er 2.5 hours For adult patients only: Round to nearest 250 mg per Medical Staff approval No Longer Active 05/31/2020 [place] AMIODarone 200 mg oral tablet 200 mg = 1 tab, PO, Daily, # 90 tab, 3 Refill(s) Active 05/31/2020 [place] Sulfamethoxazole 800 MG / Trimethoprim 1 60 MG Oral Tablet [Bactrim] 1 tab, PO, BID, # 20 tab, 0 Refill(s) No Longer Active 05/31/2020 [place] Famotidine 20 MG Oral Tablet 2 0 mg = 1 tab, PO, Daily, 0 Refill(s) Active 05/31/2020 [place] Zinc-220 oral capsule 220 mg = 1 cap, PO, Daily, 0 Refill(s) Active 05/31/2020 [place] ferrous sulfate 220 mg/5 mL oral elixir 220 mg = 5 mL, PO, TID, 0 Refill(s) Active 05/31/2020 [place] Folic Acid 1 mg, Daily, 0 Refi ll(s) Active 05/31/2020 [place] multivitamin 15 mL, Daily, 0 R efill(s) Active 05/31/2020 [place] Omnipaque 350 injectable solution Notes: (same as:Omnipaque 350). WASTE: F/P - Black; E - Municipal Trash Bin No Longer Active 05/31/2020 [place] Lasix Notes: (Same as: Lasix) Inactive 05/31/2020 [facility] Protonix Notes: For IV push re constitute with 10 ml 0.9% sodium chloride and push over 2 minutes. (Same as: Protonix) No Longer Active 05/31/2020 [facility] Saline Flush 0.9% Notes: (Same as: BD Posiflush) No Longer Active 05/31/2020 [facility] Albuterol 0.833 MG/ML / Ipratropium Brom kt 0.167 MG/ML Inhalant Solution [DuoNeb] Notes: (Same as: Duoneb) No Longer Active 05/31/2020 [facility] Merrem Notes: Same as Merrem No Longer Active 05/31/2020 [facility] ocular lubricant Notes: (Same as: Lacri-Lube, Puralube, Duratears Naturale, Artificial Tears, and Tears Again ) No Longer Active 05/31/2020 [facility] heparin Notes: porcine heparin No Longer Active 05/31/2020 [facility] Solu-Medrol Notes: (Same as:So akshat-MEDROL, A-Methapred) Inactive 05/31/2020 [facility] Sodium Chloride 0.9% (Bolus) IV 500 mL, 500 ml/hr, Infuse Over: 1 hr, Route: IV, 500, Drug form: INJ, ONCE, Priority: STAT, Dosing Weight 61.2 kg, Start date: 05/30/20 21:08:00 CDT, Stop date: 05/30/20 21:08:00 CDT, 0 Inactive 05/31/2020 [facility] Potassium Chloride Notes: ([facility] e as: KCL) Infuse no faster than 10 mEq/hr if given peripherally. No Longer Active 05/31/2020 [facility] sodium phosphate Notes: Infuse over 4 hour. Do not infuse phosphorous concurrently in the same line as TPN or IVF that contains calcium. For double lumen central lines, phosphorous may be infused in a separate lumen from TPN. No Longer Active 05/31/2020 [place] potassium phosphate Notes: ( me as: K Phosphate.) Do not infuse phosphorous concurrently in the same line as TPN or IVF that contains calcium. For double lumen central lines, phosphorous may be infused in a separate lumen from TPN. 1 mMol phoshate has 1.47 mEq potassium Infuse over 4 hours No Longer Active 05/31/2020 [facility] potassium phosphate-sodium phosphate 250 mg-280 mg-160 mg oral powder for reconstitution Notes: (Same as: Phos-NaK) Each 1.5 gm pkt has 250mg phosphorous. Mix w/2.5oz water and stir. No Longer Active 05/31/2020 [place] Magnesium Sulfate Notes: WASTE : F/P - Sink; E - Municipal Trash Bin No Longer Active 05/31/2020 [place] Magnesium Oxide Notes: (Same a s: Mag-Ox 400) Magnesium oxide [id number] elemental magnesium Dose=____mg magnesium oxide (___mg elemental magnesium) No Longer Active 05/31/2020 [place] Calcium Gluconate Notes: Conta ins: calcium gluconate 20mg/mL NaCl 0.67% 50mL WASTE: F/P - Sink; E - Municipal Trash Bin No Longer Active 05/31/2020 [facility] Calcium Carbonate 500 MG Chewable Tablet Notes: (Same As: Tums) Calcium Carbonate 500 mg = 200 mg elemental calcium Dose = mg calcium carbonate ( mg elemental calcium) No Longer Active 05/31/2020 [facility] Nystatin 100 UNT/MG Topical Powder Notes: (Same as:Mycostatin, Nilstat) For external use only. No Longer Active 05/31/2020 [place] Saline Flush 0.9% Notes: (Same as: BD Posiflush) No Longer Active 05/31/2020 [facility] Dextrose 50% Syringe (D50W) 12 .5 gm, 25 mL, Route: IVP, Drug Form: INJ, Dosing Weight 61.2, kg, PRN, PRN Blood Glucose Results, Start date: 05/30/20 21:06:00 CDT, Duration: 30 day, Stop date: 06/29/20 21:05:00 CDT, 0 No Longer Active 05/31/2020 [facility] Glucagon 1 mg, Route: IM, Drug form: PDR/INJ, PRN, Dosing Weight 61.2, kg, PRN Blood Glucose Results, Start date: 05/30/20 21:06:00 CDT, Duration: 30 day, Stop date: 06/29/20 21:05:00 CDT, 0 No Longer Active 05/31/2020 [place] Insulin Lispro Notes: (Same as : Humalog) Roll in palms of hands gently; Do not shake vigorously. WASTE: F/P - Black; E - Municipal Trash Bin Stable for 28 days at room temperature. Expires in days from Date No Longer Active 05/31/2020 [place] chlorhexidine gluconate 1.2 MG/ML Mouthwash Notes: (Same As: Peridex) No Longer Active 05/31/2020 [place] NS 1,000 mL 1,000 mL, Rate: 75 ml/hr, Infuse over: 13.3 hr, Route: IV, Dosing Weight 61.2 kg, Total Volume: 1,000, Start date: 05/30/20 19:47:00 CDT, Duration: 30 day, Stop date: 06/29/20 19:46:00 CDT, 1.63, m2, 0 No Longer Active 05/31/2020 [place] Dextrose 50% Syringe (D50W) 12 .5 gm, 25 mL, Route: IVP, Drug Form: INJ, Dosing Weight 61.2, kg, PRN, PRN Blood Glucose Results, Start date: 05/30/20 19:40:00 CDT, Duration: 30 day, Stop date: 06/29/20 19:39:00 CDT, 0 No Longer Active 05/31/2020 [place] Glucagon 1 mg, Route: IM, Drug form: PDR/INJ, PRN, Dosing Weight 61.2, kg, PRN Blood Glucose Results, Start date: 05/30/20 19:40:00 CDT, Duration: 30 day, Stop date: 06/29/20 19:39:00 CDT, 0 No Longer Active 05/31/2020 [place] Omnipaque 300 injectable solution Notes: (Same as:Omnipaque 300). WASTE: F/P - Black; E - Municipal Trash Bin No Longer Active 05/31/2020 [place] chlorhexidine gluconate 1.2 MG/ML Mouthwash Notes: (Same As: Peridex) No Longer Active 05/30/2020 [place] Saline Flush 0.9% Notes: (Same as: BD Posiflush) No Longer Active 05/30/2020 [place] Calcium Chloride 0.0014 MEQ/ML / Potassi um Chloride 0.004 MEQ/ML / Sodium Chloride 0.103 MEQ/ML / Sodium Lactate 0.028 MEQ/ML Injectable Solution 1,000 mL, 2,000 ml/hr, Route: IV, ONCE, Priority: STAT, Dosing Weight 61.364 kg, Start date: 05/30/20 17:15:00 CDT, Stop date: 05/30/20 17:15:00 CDT Inactive 05/30/2020 [facility] methylPREDNISolone SODium SUCCinate 125 mg, Route: IVP, ONCE, Dosing Weight 61.364, kg, Priority: STAT, Start date: 05/30/20 17:15:00 CDT, Stop date: 05/30/20 17:15:00 CDT Inactive 05/30/2020 [facility] Albuterol 0.833 MG/ML / Ipratropium Brom kt 0.167 MG/ML Inhalant Solution 3 mL, Route: NEB, Dosing Weight 61.364, kg, ONCE, STAT, Start date: 05/30/20 17:15:00 CDT, Stop date: 05/30/20 17:15:00 CDT Inactive 05/30/2020 [facility] Vancomycin 2001 mg: infuse ov er 2.5 hours For adult patients only: Round to nearest 250 mg per Medical Staff approval MEDICATION WASTE Product Size: 1000 mg Product Wasted: ___ mg Inactive 05/30/2020 [facility] meropenem 1 gm, Route: IVP, ON CE, Dosing Weight 61.364, kg, Priority: STAT, Start date: 05/30/20 17:15:00 CDT, Stop date: 05/30/20 17:15:00 CDT, ABX Indication: Other (specify in Comments) Inactive 05/30/2020 [facility] Mucinex Notes: (Same as: Guaif enesin LA, Humibid LA, Mucinex) Inactive 10/31/2018 [facility] atorvastatin Notes: (Same As: Lipitor) Inactive 10/31/2018 [facility] azithromycin 500 mg oral tablet 500 mg = 1 tab, PO, Daily, X 2 day, # 2 tab, 0 Refill(s), Pharmacy: [facility] [id number] No Longer Active 10/30/2018 [facility] predniSONE 20 mg oral tablet 4 0 mg = 2 tab, PO, Daily, X 4 day, # 8 tab, 0 Refill(s), Pharmacy: [facility] [id number] No Longer Active 10/30/2018 [facility] Methocarbamol Notes: (Same as: Robaxin) Inactive 10/30/2018 [facility] Protonix Notes: Tablet should not be chewed or crushed. (Same as: Protonix) Inactive 10/30/2018 [facility] Lisinopril Notes: (Same as: Pr inivil, Zestril) Inactive 10/30/2018 [facility] Escitalopram Notes: (Same as: Lexapro) Inactive 10/30/2018 [facility] Furosemide 40 MG Oral Tablet [Lasix] Notes: (Same as: Lasix) May cause GI upset. Give with food or milk. Inactive 10/30/2018 [facility] Docusate Notes: (Same as: Cola ce) (Do Not Crush) Inactive 10/30/2018 [facility] Acetaminophen 300 MG / Codeine Phosphate 30 MG Oral Tablet [Tylenol with Codeine #3] Notes: Do not exceed 4gm/day of acetamin ophen. (Same as: Tylenol with Codeine # 3) Inactive 10/30/2018 [facility] Albuterol 0.833 MG/ML / Ipratropium Brom kt 0.167 MG/ML Inhalant Solution Notes: (Same as: Duoneb) Inactive 10/30/2018 [facility] nter Trazodone Hydrochloride 100 MG Oral Tablet Notes: (Same As: Desyrel) Inactive 10/30/2018 [facility] gabapentin 300 MG Oral Capsule Notes: (Same as: Neurontin) Inactive 10/30/2018 [facility] Furosemide 40 MG Oral Tablet [Lasix] 40 mg = 1 tab, PO, Daily, # 30 tab, 0 Refill(s) Active 10/30/2018 [facility] nter escitalopram 20 mg oral tablet 20 mg = 1 tab, PO, Daily, # 30 tab, 0 Refill(s) Active 10/30/2018 [facility] pantoprazole 40 MG Enteric Coated Tablet [Protonix] 40 mg = 1 tab, PO, Daily, # 30 tab, 0 Refill(s) Active 10/30/2018 [facility] nter carvedilol 12.5 MG Oral Tablet [Coreg] 12.5 mg = 1 tab, PO, BID, 0 Refill(s) Active 10/30/2018 [facility] Trazodone Hydrochloride 100 MG Oral Tablet 100 mg = 1 tab, PO, Bedtime, # 30 tab, 0 Refill(s) Active 10/30/2018 [facility] nter gabapentin 300 MG Oral Capsule 300 mg = 1 cap, PO, Bedtime, 0 Refill(s) Active 10/30/2018 [facility] atorvastatin 20 mg oral tablet 20 mg = 1 tab, PO, Bedtime, # 30 tab, 0 Refill(s) Active 10/30/2018 [facility] nter lisinopril 5 mg oral tablet 5 mg = 1 tab, PO, Daily, # 30 tab, 0 Refill(s) Active 10/30/2018 [facility] methocarbamol 500 mg oral tablet 1,000 mg = 2 tab, PO, BID, 0 Refill(s) Active 10/30/2018 [facility] Albuterol 0.833 MG/ML / Ipratropium Brom kt 0.167 MG/ML Inhalant Solution [DuoNeb] 3 ml, INHALATION, QID, # 30 ea, 0 Refill (s) Active 10/30/2018 [facility] Nicotine Notes: (Same as: Ferny vale) "Remove old patch before application of new patch" WASTE: F/P - P Waste Black; E - P Waste Black Inactive 10/30/2018 [facility] Dextrose 50% Syringe 12.5 gm, 25 mL, Route: IVP, Drug Form: INJ, Dosing Weight 61.364, kg, PRN, PRN Blood Glucose Results, Start date: 10/30/18 0:17:00 BARREL BANDER, Duration: 30 day, Stop date: 11/29/18 0:16:00 BARREL BANDER Inactive 10/30/2018 [facility] Glucagon 1 mg, Route: IM, Drug form: PDR/INJ, PRN, Dosing Weight 61.364, kg, PRN Blood Glucose Results, Start date: 10/30/18 0:17:00 BARREL BANDER, Duration: 30 day, Stop date: 11/29/18 0:16:00 BARREL BANDER Inactive 10/30/2018 [facility] Ondansetron Notes: (Same as: Viviana martinez) MEDICATION WASTE Product Size: 4 mg Product Wasted: ___ mg Inactive 10/30/2018 [facility] gabapentin 300 MG Oral Capsule 300 mg, 1 cap, Route: PO, ONCE, Dosing Weight 61.364, kg, Start date: 10/29/18 22:55:00 BARREL BANDER, Stop date: 10/29/18 22:55:00 BARREL BANDER Inactive 10/30/2018 [facility] Acetaminophen 300 MG / Codeine Phosphate 30 MG Oral Tablet [Tylenol with Codeine #3] 1 tab, Route: PO, Drug Form: TAB, Dosing Weight 61.364, kg, ONCE, STAT, Start date: 10/29/18 22:54:00 BARREL BANDER, Stop date: 10/29/18 22:54:00 BARREL BANDER Inactive 10/30/2018 [facility] Azithromycin Notes: (Same As: Zithromax IV) Inactive 10/30/2018 [facility] Albuterol 0.833 MG/ML / Ipratropium Brom kt 0.167 MG/ML Inhalant Solution [DuoNeb] Notes: (Same as: Duoneb) Inactive 10/30/2018 [facility] Magnesium Sulfate 2 gm, Route: IV, ONCE, Dosing Weight 61.364, kg, Priority: STAT, Start date: 10/29/18 18:53:00 BARREL BANDER, Stop date: 10/29/18 18:53:00 BARREL BANDER Inactive 10/30/2018 [facility] Meloxicam 1 tablet Orally Active 15 MG Orally Once a day prn with food [facility] 01/26/2017 [facility] Gabapentin 1 capsule Orally Active 300 MG Orally Three bonnie es a day [facility] 11/24/2016 [facility] Nam Gabapentin 1 capsule Orally Active 300 MG [facility] Meloxicam 1 tablet Orally Active 15 MG Orally [facility] Gabapentin 1 capsule Orally Active 300 MG Orally [facility] Atorvastatin Calcium 1 tablet Orally Active 40 MG Orally Once a day [facility] Potassium Chloride 1 packet wi th food Orally Active 20 MEQ Orally Once a day [facility] Methocarbamol 1 tablet Orally Active 750 MG Orally every 4 h rs Jitendra Ham Tramadol HCl 1 tablet as needed Orally Active 50 MG Orally every 6 hrs prn Jitendra Ham Acetaminophen-Codeine #4 1 tab let as needed Orally Active 300-60 MG Orally every 6 hrs Jitendra Ham Olmesartan Medoxomil 1 tablet Orally Active 5 MG Orally Once a day Jitendra Ham Diltiazem HCl ER 1 capsule on an empty stomach in the morning Orally Active 240 MG Orally Once a day Jitendra Ham Carvedilol Unknown Orally Active 12.5 MG Orally Jitendra Ham Vitamin D (Ergocalciferol) 1 c apsule Orally Active 87417 UNIT Orally Once a day Jitendra Ham Fluoxetine HCl 1 capsule in morning Orally Active 20 MG Orally Once a day Jitendra Ham Allergies, Adverse Reactions, Alerts Substance Category Reaction Severity Reaction type Status Date Reported Comments Source Aspirin Adverse Reaction Info Not Available Adverse Reaction Active 07/26/2018 [facility] penicillins Assertion pt states she"passes out" Severe Drug allergy Active [place] aspirin Assertion pt states it makes her stomach hurt Mild Propensity to adverse reactions to drug Active Sugar L and Immunizations No Data Provided for This Section Results Order Name Results Value Reference Range Date Interpretation Comments Source CHEM PANEL Glucose Lvl 91 70 - 99 06/06/2020 [place] CHEM PANEL BUN 28 7 - 22 06/06/2020 [place] CHEM PANEL Creatinine Lvl 0.54 0.50 - 1.40 06/06/2020 [place] CHEM PANEL Sodium Lvl 147 135 - 145 06/06/2020 [place] CHEM PANEL Potassium Lvl 4.2 3.5 - 5.1 06/06/2020 [place] CHEM PANEL Chloride Lvl 115 95 - 109 06/06/2020 [place] CHEM PANEL CO2 26 24 - 32 06/06/2020 [place] CHEM PANEL Calcium Lvl 8.3 8.5 - 10.5 06/06/2020 [place] CHEM PANEL AGAP 10.2 10.0 - 20.0 06/06/2020 [place] CHEM PANEL eGFR 97 06/06/2020 Result Comment: [...] should be multiplied by the estimated BMI. [place] CHEM PANEL Total Protein 6.0 6.4 - 8.4 06/06/2020 [place] CHEM PANEL Albumin Lvl 1.8 3.5 - 5.0 06/06/2020 [place] CHEM PANEL ALT 33 0 - 65 06/06/2020 [place] CHEM PANEL AST 24 0 - 37 06/06/2020 [place] CHEM PANEL Alk Phos 145 39 - 136 06/06/2020 [place] CHEM PANEL Bili Total 0.6 0.2 - 1.3 06/06/2020 [place] CHEM PANEL Bili Direct 0.2 0.0 - 0.3 06/06/2020 [place] CHEM PANEL Bili Indirect 0.4 0.0 - 1.0 06/06/2020 [place] CHEM PANEL Globulin 4.2 2.7 - 4.2 06/06/2020 [place] CHEM PANEL A/G Ratio 0.4 0.7 - 1.6 06/06/2020 [place] HEMATOLOGY Segs 83.3 45.0 - 75.0 06/06/2020 [place] HEMATOLOGY Lymphocytes 9.9 20.0 - 40.0 06/06/2020 [place] HEMATOLOGY Monocytes 4.5 2.0 - 12.0 06/06/2020 [place] HEMATOLOGY Eosinophils 1.9 0.0 - 4.0 06/06/2020 [place] HEMATOLOGY Basophils 0.4 0.0 - 1.0 06/06/2020 [place] HEMATOLOGY Neutrophils # 13.8 1.5 - 8.1 06/06/2020 [place] HEMATOLOGY Lymphocytes # 1.7 1.0 - 5.5 06/06/2020 [place] HEMATOLOGY Monocytes # 0.8 0.0 - 0.8 06/06/2020 [place] HEMATOLOGY Eosinophils # 0.3 0.0 - 0.5 06/06/2020 [place] HEMATOLOGY Basophils # 0.1 0.0 - 0.2 06/06/2020 [place] HEMATOLOGY WBC 16.6 3.7 - 10.4 06/06/2020 [place] HEMATOLOGY RBC 3.76 4.20 - 5.40 06/06/2020 [place] HEMATOLOGY Hgb 10.3 12.0 - 16.0 06/06/2020 [place] HEMATOLOGY Hct 31.8 36.0 - 48.0 06/06/2020 [place] HEMATOLOGY MCV 84.5 80.0 - 98.0 06/06/2020 [place] HEMATOLOGY MCH 27.3 27.0 - 31.0 06/06/2020 [place] HEMATOLOGY MCHC 32.3 32.0 - 36.0 06/06/2020 [place] HEMATOLOGY RDW 17.7 11.5 - 14.5 06/06/2020 [place] HEMATOLOGY Platelet 287 133 - 450 06/06/2020 [place] HEMATOLOGY MPV 8.4 7.4 - 10.4 06/06/2020 [place] CHEM PANEL Glucose Lvl 83 70 - 99 06/05/2020 [place] CHEM PANEL BUN 32 7 - 22 06/05/2020 [place] CHEM PANEL Creatinine Lvl 0.57 0.50 - 1.40 06/05/2020 [place] CHEM PANEL Sodium Lvl 146 135 - 145 06/05/2020 [place] CHEM PANEL Potassium Lvl 4.1 3.5 - 5.1 06/05/2020 [facility] CHEM PANEL Chloride Lvl 115 95 - 109 06/05/2020 [place] CHEM PANEL CO2 25 24 - 32 06/05/2020 [facility] CHEM PANEL Calcium Lvl 7.8 8.5 - 10.5 06/05/2020 [place] CHEM PANEL AGAP 10.1 10.0 - 20.0 06/05/2020 [facility] CHEM PANEL eGFR 96 06/05/2020 Result Comment: [...] should be multiplied by the estimated BMI. [facility] HEMATOLOGY WBC 18.3 3.7 - 10.4 06/05/2020 [facility] HEMATOLOGY RBC 3.68 4.20 - 5.40 06/05/2020 [facility] HEMATOLOGY Hgb 9.8 12.0 - 16.0 06/05/2020 [facility] HEMATOLOGY Hct 31.1 36.0 - 48.0 06/05/2020 [facility] HEMATOLOGY MCV 84.5 80.0 - 98.0 06/05/2020 [facility] HEMATOLOGY MCH 26.7 27.0 - 31.0 06/05/2020 [facility] HEMATOLOGY MCHC 31.6 32.0 - 36.0 06/05/2020 [facility] HEMATOLOGY RDW 16.7 11.5 - 14.5 06/05/2020 [facility] HEMATOLOGY Platelet 295 133 - 450 06/05/2020 [facility] HEMATOLOGY MPV 8.8 7.4 - 10.4 06/05/2020 [facility] HEMATOLOGY Segs 85.2 45.0 - 75.0 06/05/2020 [facility] HEMATOLOGY Lymphocytes 8.8 20.0 - 40.0 06/05/2020 [facility] HEMATOLOGY Monocytes 3.8 2.0 - 12.0 06/05/2020 [facility] HEMATOLOGY Eosinophils 1.8 0.0 - 4.0 06/05/2020 [facility] HEMATOLOGY Basophils 0.4 0.0 - 1.0 06/05/2020 [facility] HEMATOLOGY Neutrophils # 15.6 1.5 - 8.1 06/05/2020 [facility] HEMATOLOGY Lymphocytes # 1.6 1.0 - 5.5 06/05/2020 [facility] HEMATOLOGY Monocytes # 0.7 0.0 - 0.8 06/05/2020 [facility] HEMATOLOGY Eosinophils # 0.3 0.0 - 0.5 06/05/2020 [facility] HEMATOLOGY Basophils # 0.1 0.0 - 0.2 06/05/2020 [facility] HEMATOLOGY WBC 22.5 3.7 - 10.4 06/04/2020 [facility] HEMATOLOGY RBC 3.93 4.20 - 5.40 06/04/2020 [facility] HEMATOLOGY Hgb 10.4 12.0 - 16.0 06/04/2020 [facility] HEMATOLOGY Hct 33.1 36.0 - 48.0 06/04/2020 [facility] HEMATOLOGY MCV 84.3 80.0 - 98.0 06/04/2020 [facility] HEMATOLOGY MCH 26.4 27.0 - 31.0 06/04/2020 [facility] HEMATOLOGY MCHC 31.3 32.0 - 36.0 06/04/2020 [facility] HEMATOLOGY RDW 17.0 11.5 - 14.5 06/04/2020 [facility] HEMATOLOGY Platelet 344 133 - 450 06/04/2020 [facility] HEMATOLOGY MPV 8.7 7.4 - 10.4 06/04/2020 [facility] HEMATOLOGY Segs 91.0 45.0 - 75.0 06/04/2020 [facility] HEMATOLOGY Lymphocytes 4.2 20.0 - 40.0 06/04/2020 [facility] HEMATOLOGY Monocytes 3.3 2.0 - 12.0 06/04/2020 [facility] HEMATOLOGY Eosinophils 1.4 0.0 - 4.0 06/04/2020 [facility] HEMATOLOGY Basophils 0.1 0.0 - 1.0 06/04/2020 [facility] HEMATOLOGY Neutrophils # 20.5 1.5 - 8.1 06/04/2020 [facility] HEMATOLOGY Lymphocytes # 1.0 1.0 - 5.5 06/04/2020 [facility] HEMATOLOGY Monocytes # 0.7 0.0 - 0.8 06/04/2020 [facility] HEMATOLOGY Eosinophils # 0.3 0.0 - 0.5 06/04/2020 [facility] CHEM PANEL Glucose Lvl 151 70 - 99 06/03/2020 [facility] CHEM PANEL BUN 40 7 - 22 06/03/2020 [facility] CHEM PANEL Creatinine Lvl 0.81 0.50 - 1.40 06/03/2020 [facility] CHEM PANEL Sodium Lvl 145 135 - 145 06/03/2020 [facility] CHEM PANEL Potassium Lvl 5.1 3.5 - 5.1 06/03/2020 [facility] CHEM PANEL Chloride Lvl 118 95 - 109 06/03/2020 [facility] CHEM PANEL CO2 21 24 - 32 06/03/2020 [facility] CHEM PANEL Calcium Lvl 8.5 8.5 - 10.5 06/03/2020 [facility] CHEM PANEL Total Protein 7.2 6.4 - 8.4 06/03/2020 [facility] CHEM PANEL Albumin Lvl 2.1 3.5 - 5.0 06/03/2020 [facility] CHEM PANEL ALT 62 0 - 65 06/03/2020 [facility] CHEM PANEL AST 43 0 - 37 06/03/2020 [facility] CHEM PANEL Alk Phos 205 39 - 136 06/03/2020 [facility] CHEM PANEL Bili Total 0.4 0.2 - 1.3 06/03/2020 [facility] CHEM PANEL AGAP 11.1 10.0 - 20.0 06/03/2020 [facility] CHEM PANEL B/C Ratio 49 6 - 25 06/03/2020 [facility] CHEM PANEL Globulin 5.1 2.7 - 4.2 06/03/2020 [facility] CHEM PANEL A/G Ratio 0.4 0.7 - 1.6 06/03/2020 [facility] CHEM PANEL eGFR 86 06/03/2020 Result Comment: [...] should be multiplied by the estimated BMI. [place] HEMATOLOGY Basophils # 0.1 0.0 - 0.2 06/03/2020 [facility] HEMATOLOGY Hypochrom 1+ (06/03/20 5:08 AM) None Seen 06/03/2020 [facility] TOXICOLOGY Vanco Tr 23.9 06/02/2020 [facility] [place] [id number] 06/02/2020 [facility] CHEM PANEL Magnesium Lvl 2.5 1.8 - 2.4 06/02/2020 [facility] CHEM PANEL Phosphorus 2.6 2.5 - 4.5 06/02/2020 [facility] CHEM PANEL Glucose Lvl 107 70 - 99 06/02/2020 [facility] CHEM PANEL BUN 38 7 - 22 06/02/2020 [facility] CHEM PANEL Creatinine Lvl 0.78 0.50 - 1.40 06/02/2020 [facility] CHEM PANEL Sodium Lvl 146 135 - 145 06/02/2020 [facility] CHEM PANEL Potassium Lvl 3.8 3.5 - 5.1 06/02/2020 [facility] CHEM PANEL Chloride Lvl 113 95 - 109 06/02/2020 [facility] CHEM PANEL CO2 27 24 - 32 06/02/2020 [facility] CHEM PANEL Calcium Lvl 8.2 8.5 - 10.5 06/02/2020 [facility] CHEM PANEL Total Protein 6.6 6.4 - 8.4 06/02/2020 [facility] CHEM PANEL Albumin Lvl 1.8 3.5 - 5.0 06/02/2020 [facility] CHEM PANEL ALT 65 0 - 65 06/02/2020 [facility] CHEM PANEL AST 50 0 - 37 06/02/2020 [facility] CHEM PANEL Alk Phos 185 39 - 136 06/02/2020 [facility] CHEM PANEL Bili Total 0.5 0.2 - 1.3 06/02/2020 [facility] CHEM PANEL AGAP 9.8 10.0 - 20.0 06/02/2020 [facility] CHEM PANEL B/C Ratio 49 6 - 25 06/02/2020 [facility] CHEM PANEL Globulin 4.8 2.7 - 4.2 06/02/2020 [facility] CHEM PANEL A/G Ratio 0.4 0.7 - 1.6 06/02/2020 [facility] CHEM PANEL eGFR 90 06/02/2020 Result Comment: [...] should be multiplied by the estimated BMI. [place] HEMATOLOGY PTT 34.8 22.9 - 35.8 06/02/2020 [facility] HEMATOLOGY PT 17.5 12.0 - 14.7 06/02/2020 [facility] HEMATOLOGY INR 1.42 0.85 - 1.17 06/02/2020 [facility] HEMATOLOGY WBC 22.3 3.7 - 10.4 06/02/2020 [facility] HEMATOLOGY RBC 3.58 4.20 - 5.40 06/02/2020 [facility] HEMATOLOGY Hgb 9.6 12.0 - 16.0 06/02/2020 [facility] HEMATOLOGY Hct 29.7 36.0 - 48.0 06/02/2020 [facility] HEMATOLOGY MCV 83.1 80.0 - 98.0 06/02/2020 [facility] HEMATOLOGY MCH 26.8 27.0 - 31.0 06/02/2020 [facility] HEMATOLOGY MCHC 32.2 32.0 - 36.0 06/02/2020 [facility] HEMATOLOGY RDW 16.4 11.5 - 14.5 06/02/2020 [facility] HEMATOLOGY Platelet 309 133 - 450 06/02/2020 [facility] HEMATOLOGY MPV 8.7 7.4 - 10.4 06/02/2020 [facility] HEMATOLOGY Segs 94.0 45.0 - 75.0 06/02/2020 [facility] HEMATOLOGY Lymphocytes 2.4 20.0 - 40.0 06/02/2020 [facility] HEMATOLOGY Monocytes 3.6 2.0 - 12.0 06/02/2020 [facility] HEMATOLOGY Neutrophils # 21.0 1.5 - 8.1 06/02/2020 [facility] HEMATOLOGY Lymphocytes # 0.5 1.0 - 5.5 06/02/2020 [facility] HEMATOLOGY Monocytes # 0.8 0.0 - 0.8 06/02/2020 [facility] PARATHYROID PROFILE Ca Ion WB 1.09 1.05 - 1.25 06/02/2020 [facility] PARATHYROID PROFILE Ca Norm WB 1.09 1.05 - 1.25 06/02/2020 [facility] ELECTROLYTES Potassium Lvl 4.0 3.5 - 5.1 06/01/2020 [facility] CHEM PANEL Total Protein 6.7 6.4 - 8.4 06/01/2020 [facility] CHEM PANEL Albumin Lvl 1.8 3.5 - 5.0 06/01/2020 [facility] CHEM PANEL ALT 65 0 - 65 06/01/2020 [facility] CHEM PANEL AST 72 0 - 37 06/01/2020 [facility] CHEM PANEL Alk Phos 189 39 - 136 06/01/2020 [facility] CHEM PANEL Bili Total 0.3 0.2 - 1.3 06/01/2020 [facility] CHEM PANEL Bili Direct 0.1 0.0 - 0.3 06/01/2020 [facility] CHEM PANEL Bili Indirect 0.2 0.0 - 1.0 06/01/2020 [facility] CHEM PANEL Globulin 4.9 2.7 - 4.2 06/01/2020 [facility] CHEM PANEL A/G Ratio 0.4 0.7 - 1.6 06/01/2020 [facility] HEMATOLOGY WBC 27.6 3.7 - 10.4 06/01/2020 [facility] HEMATOLOGY RBC 3.11 4.20 - 5.40 06/01/2020 [facility] HEMATOLOGY Hgb 8.4 12.0 - 16.0 06/01/2020 [facility] HEMATOLOGY Hct 25.7 36.0 - 48.0 06/01/2020 [facility] HEMATOLOGY MCV 82.6 80.0 - 98.0 06/01/2020 [facility] HEMATOLOGY MCH 27.2 27.0 - 31.0 06/01/2020 [facility] HEMATOLOGY MCHC 32.9 32.0 - 36.0 06/01/2020 [facility] HEMATOLOGY RDW 16.5 11.5 - 14.5 06/01/2020 [facility] HEMATOLOGY Platelet 285 133 - 450 06/01/2020 [facility] HEMATOLOGY MPV 8.8 7.4 - 10.4 06/01/2020 [facility] HEMATOLOGY Plt Morph Jen l (06/01/20 4:19 AM) Normal 06/01/2020 [facility] HEMATOLOGY Segs 94.9 45.0 - 75.0 06/01/2020 [facility] HEMATOLOGY Lymphocytes 1.8 20.0 - 40.0 06/01/2020 [facility] HEMATOLOGY Monocytes 2.5 2.0 - 12.0 06/01/2020 [facility] HEMATOLOGY Eosinophils 0.2 0.0 - 4.0 06/01/2020 [facility] HEMATOLOGY Basophils 0.6 0.0 - 1.0 06/01/2020 [facility] HEMATOLOGY Neutrophils # 26.2 1.5 - 8.1 06/01/2020 [facility] HEMATOLOGY Lymphocytes # 0.5 1.0 - 5.5 06/01/2020 [facility] HEMATOLOGY Monocytes # 0.7 0.0 - 0.8 06/01/2020 [facility] HEMATOLOGY Eosinophils # 0.1 0.0 - 0.5 06/01/2020 [facility] HEMATOLOGY Basophils # 0.2 0.0 - 0.2 06/01/2020 [facility] HEMATOLOGY Polychrom Slight 06/01/2020 [facility] CHEM PANEL Glucose Lvl 102 70 - 99 06/01/2020 [facility] CHEM PANEL BUN 36 7 - 22 06/01/2020 [facility] CHEM PANEL Creatinine Lvl 0.84 0.50 - 1.40 06/01/2020 [facility] CHEM PANEL Sodium Lvl 144 135 - 145 06/01/2020 [facility] CHEM PANEL Potassium Lvl 3.5 3.5 - 5.1 06/01/2020 [facility] CHEM PANEL Chloride Lvl 111 95 - 109 06/01/2020 [facility] CHEM PANEL CO2 25 24 - 32 06/01/2020 [facility] CHEM PANEL Calcium Lvl 8.1 8.5 - 10.5 06/01/2020 [facility] CHEM PANEL Total Protein 6.4 6.4 - 8.4 06/01/2020 [facility] CHEM PANEL Albumin Lvl 1.7 3.5 - 5.0 06/01/2020 [facility] CHEM PANEL ALT 65 0 - 65 06/01/2020 [facility] CHEM PANEL AST 65 0 - 37 06/01/2020 [facility] CHEM PANEL Alk Phos 184 39 - 136 06/01/2020 [facility] CHEM PANEL Bili Total 0.3 0.2 - 1.3 06/01/2020 [facility] CHEM PANEL AGAP 11.5 10.0 - 20.0 06/01/2020 [facility] CHEM PANEL B/C Ratio 43 6 - 25 06/01/2020 [facility] CHEM PANEL Globulin 4.7 2.7 - 4.2 06/01/2020 [facility] CHEM PANEL A/G Ratio 0.4 0.7 - 1.6 06/01/2020 [facility] CHEM PANEL eGFR 83 06/01/2020 Result Comment: [...] should be multiplied by the estimated BMI. [place] CHEM PANEL Magnesium Lvl 2.5 1.8 - 2.4 06/01/2020 [facility] CHEM PANEL Phosphorus 3.8 2.5 - 4.5 06/01/2020 [facility] HEMATOLOGY PTT 35.6 22.9 - 35.8 06/01/2020 [facility] HEMATOLOGY PT 17.4 12.0 - 14.7 06/01/2020 [facility] HEMATOLOGY INR 1.41 0.85 - 1.17 06/01/2020 [facility] PARATHYROID PROFILE Ca Ion WB 1.10 1.05 - 1.25 06/01/2020 [facility] PARATHYROID PROFILE Ca Norm WB 1.11 1.05 - 1.25 06/01/2020 [facility] HEMATOLOGY Hgb 8.3 12.0 - 16.0 05/31/2020 [facility] HEMATOLOGY Hct 26.0 36.0 - 48.0 05/31/2020 [facility] CEFTAZIDIME:SUSC:PT:ISOLATE:ORDQN:KEISHA Gram Stain Report Less Than 25 Squamous Epithelial Cells/Lpf Many WBC's Few Gram Positive Rods Rare Gram Positive Cocci Good Quality Specimen 05/31/2020 [facility] CEFTAZIDIME:SUSC:PT:ISOLATE:ORDQN:KEISHA Culture: Respiratory w/Gram Stain Many Pseudomonas aeruginosa , Multi-drug Resistant Organism Many Escherichia coli , Upon supplemental testing, this organism was confirmed to produce a carbapenamase. Multi-drug Resistant Organism Normal Respiratory Albaro Isolated 05/31/2020 [facility] CEFTAZIDIME:SUSC:PT:ISOLATE:ORDQN:KEISHA Escherichia coli Escherichia coli 05/31/2020 [facility] CEFTAZIDIME:SUSC:PT:ISOLATE:ORDQN:KEISHA Pseudomonas aeruginosa Pseudomonas aeruginosa 05/31/2020 [facility] Gram Stain Report Less Than 25 Sq uamous Epithelial Cells/Lpf Many WBC's Few Gram Positive Rods Rare Gram Positive Cocci Good Quality Specimen 05/31/2020 [facility] Culture: Respiratory w/Gram Stain M any Gram Negative Rods Identification And Sensitivity Pending . Further Testing In Progress 05/31/2020 [facility] BACTERIAL - SEROLOGY MRSA by PCR Positive 2 *ABN* (05/31/20 4:44 PM) 05/31/2020 Result Comment: "Significant Findings called to Alla Traore at 06/01/2020 08:18 by LF. Read Back OK." [place] CHEM PANEL Ammonia 14.0 <=45.0 uMol/L 05/31/2020 [place] CHEM PANEL Lipase Lvl 46 73 - 393 05/31/2020 [facility] BLOOD BANK RESULTS RBC product Product available (05/31/20 5:37 AM) 05/31/2020 [facility] ANEMIA STUDY Ferritin Lvl 6998 5 - 204 05/31/2020 [facility] CHEM PANEL Glucose Lvl 116 70 - 99 05/31/2020 [facility] CHEM PANEL BUN 35 7 - 22 05/31/2020 [facility] CHEM PANEL Creatinine Lvl 0.98 0.50 - 1.40 05/31/2020 [facility] CHEM PANEL Sodium Lvl 142 135 - 145 05/31/2020 [facility] CHEM PANEL Chloride Lvl 107 95 - 109 05/31/2020 [facility] CHEM PANEL CO2 28 24 - 32 05/31/2020 [facility] CHEM PANEL AGAP 11.4 10.0 - 20.0 05/31/2020 [facility] CHEM PANEL Calcium Lvl 8.2 8.5 - 10.5 05/31/2020 [facility] CHEM PANEL B/C Ratio 36 6 - 25 05/31/2020 [facility] CHEM PANEL eGFR 69 05/31/2020 Result Comment: [...] should be multiplied by the estimated BMI. [place] CHEM PANEL Magnesium Lvl 2.6 1.8 - 2.4 05/31/2020 [facility] CHEM PANEL Phosphorus 4.2 2.5 - 4.5 05/31/2020 [facility] CHEM PANEL Ammonia 13.0 <=45.0 uMol/L 05/31/2020 [facility] HEMATOLOGY WBC 26.2 3.7 - 10.4 05/31/2020 [facility] HEMATOLOGY RBC 2.61 4.20 - 5.40 05/31/2020 [facility] HEMATOLOGY MCV 82.7 80.0 - 98.0 05/31/2020 [facility] HEMATOLOGY MCH 26.0 27.0 - 31.0 05/31/2020 [facility] HEMATOLOGY MCHC 31.5 32.0 - 36.0 05/31/2020 [facility] HEMATOLOGY RDW 17.5 11.5 - 14.5 05/31/2020 [facility] HEMATOLOGY Platelet 296 133 - 450 05/31/2020 [facility] HEMATOLOGY MPV 8.8 7.4 - 10.4 05/31/2020 [facility] HEMATOLOGY PT 17.1 12.0 - 14.7 05/31/2020 [facility] HEMATOLOGY INR 1.38 0.85 - 1.17 05/31/2020 [facility] HEMATOLOGY PTT 40.3 22.9 - 35.8 05/31/2020 [facility] HEMATOLOGY Segs 97.6 45.0 - 75.0 05/31/2020 [facility] HEMATOLOGY Lymphocytes 1.1 20.0 - 40.0 05/31/2020 [facility] HEMATOLOGY Monocytes 1.2 2.0 - 12.0 05/31/2020 [facility] HEMATOLOGY Basophils 0.1 0.0 - 1.0 05/31/2020 [facility] HEMATOLOGY Neutrophils # 25.5 1.5 - 8.1 05/31/2020 [facility] HEMATOLOGY Lymphocytes # 0.3 1.0 - 5.5 05/31/2020 [facility] HEMATOLOGY Monocytes # 0.3 0.0 - 0.8 05/31/2020 [facility] PARATHYROID PROFILE Ca Ion WB 1.05 1.05 - 1.25 05/31/2020 [facility] PARATHYROID PROFILE Ca Norm WB 1.06 1.05 - 1.25 05/31/2020 [facility] ANEMIA STUDY Iron 23 45 - 160 05/31/2020 Result Comment: Lab test performed by:<b r/>[employer] [place]
[address] [place] [address]
[place] [address]
MANAS ANGEL MD [facility] ANEMIA STUDY TIBC 126 250 - 450 05/31/2020 [facility] ANEMIA STUDY % S[place] Fe 18 16 - 45 05/31/2020 [facility] CHEM PANEL Lactic Acid Lvl 1.2 0.5 - 2.2 05/31/2020 [facility] BLOOD BANK RESULTS RBC product Product available 6 (05/30/20 8:03 PM) 05/31/2020 Result Comment: 05/30/2020 2 1:59 [id number]
Blood available, notified Huyen Hernandez at 05/30/2020 21:59 by WX. [facility] IMMUNOLOGY Coronavirus (COVID-19) NA A Not Detected (05/30/20 7:24 PM) Not Detected 05/31/2020 [facility] CIPROFLOXACIN:SUSC:PT:ISOLATE:ORDQN:KEISHA Gram Stain Report Few WBC's Many Gram Negative Rods Many Gram Positive Cocci In Pairs 05/31/2020 [facility] CIPROFLOXACIN:SUSC:PT:ISOLATE:ORDQN:KEISHA Culture: Wound/Abscess w/Gram Stain Moderate Proteus mirabilis ESBL , Multi- drug Resistant Organism Few Escherichia coli , Upon supplemental testing, this organism was confirmed to produce a carbapenamase. , Multi-drug Resistant Organism Few Gram Pos Rods Suggestive of Diphtheroids 05/31/2020 [facility] CIPROFLOXACIN:SUSC:PT:ISOLATE:ORDQN:KEISHA Proteus mirabilis ESBL Proteus mirabilis ESBL 05/31/2020 [facility] CIPROFLOXACIN:SUSC:PT:ISOLATE:ORDQN:KEISHA Escherichia coli Escherichia coli 05/31/2020 [facility] URINE AND STOOL Occult Bld Stl Negative (05/30/20 7:17 PM) Negative 05/31/2020 [facility] FLUCONAZOLE:SUSC:PT:ISOLATE:ORDQN:GRADIENT STRIP Culture: Catheter Tip 50 CFU Deya parapsilosis 05/31/2020 [facility] FLUCONAZOLE:SUSC:PT:ISOLATE:ORDQN:GRADIENT STRIP Deya parapsilosis Deya parapsilosis 05/31/2020 [facility] Culture: Catheter Tip 50 CFU Candid a parapsilosis Susceptibility To Follow 05/31/2020 [facility] BLOOD BANK RESULTS ABO/Rh O POS 05/30/2020 [facility] BLOOD BANK RESULTS Antibody Scrn Negative (05/30/20 5:54 PM) 05/30/2020 [facility] CARDIAC ENZYMES Troponin-I 0.02 0.00 - 0.40 05/30/2020 [facility] CHEM PANEL Procalcitonin Lvl 4.14 0.00 - 0.10 05/30/2020 Result Comment: Critical Result(s) pritchett d to
at 05/30/2020 18:49 by
. Read back OK. [facility] CHEM PANEL Lactic Acid Lvl 2.8 0.5 - 2.2 05/30/2020 [facility] HEMATOLOGY RBC Morph Jen l (05/30/20 5:54 PM) Normal 05/30/2020 [facility] HEMATOLOGY Bands 6.0 0.0 - 11.0 05/30/2020 [facility] HEMATOLOGY Metamyelocytes 2.0 0.0 - 1.0 05/30/2020 [facility] HEMATOLOGY Tot Cell Ct 100 05/30/2020 [facility] HEMATOLOGY Large Plt Moder ate *ABN* (05/30/20 5:54 PM) None Seen 05/30/2020 [facility] HEMATOLOGY Fibrinogen Lvl 841 230 - 510 05/30/2020 [facility] HEMATOLOGY D-Dimer 14.64 05/30/2020 [facility] URINE AND STOOL UA Fine Gran 0-2 /LPF None Seen /LPF 10/30/2018 [facility] URINE AND STOOL UA Hyal Cast 6-10 (10/29/18 11:39 PM) 0 - 2 10/30/2018 [facility] URINE AND STOOL UA Mucus Few /LPF None Seen /LPF 10/30/2018 [facility] URINE AND STOOL UA Bacteria Few /HPF None Seen /HPF 10/30/2018 [facility] URINE AND STOOL UA RBC 3-5 /HPF 0 - 2 10/30/2018 [facility] URINE AND STOOL UA WBC 3-5 /HPF None Seen /HPF 10/30/2018 [facility] URINE AND STOOL UA Sq Epi Few /LPF Few /LPF 10/30/2018 [facility] URINE AND STOOL UA Turbidity Slight Cloudy (10/29/18 11:39 PM) Clear 10/30/2018 [facility] URINE AND STOOL UA Spec Grav >=1.030 *ABN* (10/29/18 11:39 PM) <=1.030 10/30/2018 [facility] URINE AND STOOL UA Color Yellow *NA* (10/29/18 11:39 PM) Yellow 10/30/2018 [facility] URINE AND STOOL UA Blood Negative (10/29/18 11:39 PM) Negative 10/30/2018 [facility] URINE AND STOOL UA Leuk Est Negative (10/29/18 11:39 PM) Negative 10/30/2018 [facility] URINE AND STOOL UA Urobilinogen 0.2 0.1 - 1.0 10/30/2018 [facility] URINE AND STOOL UA Nitrite Negative (10/29/18 11:39 PM) Negative 10/30/2018 [facility] URINE AND STOOL UA pH 5.5 5.0 - 8.0 10/30/2018 [facility] URINE AND STOOL UA Ketones Negative *NA* (10/29/18 11:39 PM) Negative 10/30/2018 [facility] URINE AND STOOL UA Bili Negative *NA* (10/29/18 11:39 PM) Negative 10/30/2018 [facility] URINE AND STOOL UA Protein 30 mg/dL Negative mg/dL 10/30/2018 [facility] URINE AND STOOL UA Glucose Negative (10/29/18 11:39 PM) Negative 10/30/2018 [facility] CARDIAC ENZYMES Troponin-I 0.03 0.00 - 0.40 10/30/2018 [facility] CHEM PANEL Lactic Acid Lvl 1.5 0.5 - 2.2 10/30/2018 [facility] ELECTROLYTES AGAP 11.9 10.0 - 20.0 10/30/2018 [facility] ELECTROLYTES eGFR 34 10/30/2018 Result Comment: The [...] should be multiplied by the estimated BMI. [facility] ELECTROLYTES Glucose Lvl 124 70 - 99 10/30/2018 [facility] ELECTROLYTES BUN 12 7 - 22 10/30/2018 [facility] ELECTROLYTES Potassium Lvl 3.9 3.5 - 5.1 10/30/2018 [facility] ELECTROLYTES Sodium Lvl 144 135 - 145 10/30/2018 [facility] ELECTROLYTES Creatinine Lvl 1.1 6 0.50 - 1.40 10/30/2018 [facility] ELECTROLYTES CO2 30 24 - 32 10/30/2018 [facility] ELECTROLYTES Chloride Lvl 106 95 - 109 10/30/2018 [facility] ELECTROLYTES Calcium Lvl 8.8 8.5 - 10.5 10/30/2018 [facility] HEMATOLOGY MCHC 32.2 32.0 - 36.0 10/30/2018 [facility] HEMATOLOGY MPV 9.0 7.4 - 10.4 10/30/2018 [facility] HEMATOLOGY RDW 14.1 11.5 - 14.5 10/30/2018 [facility] HEMATOLOGY MCH 29.3 27.0 - 31.0 10/30/2018 [facility] HEMATOLOGY Hct 36.6 36.0 - 48.0 10/30/2018 [facility] HEMATOLOGY Platelet 215 133 - 450 10/30/2018 [facility] HEMATOLOGY WBC 12.0 3.7 - 10.4 10/30/2018 [facility] HEMATOLOGY RBC 4.03 4.20 - 5.40 10/30/2018 [facility] HEMATOLOGY MCV 90.8 80.0 - 98.0 10/30/2018 [facility] HEMATOLOGY Hgb 11.8 12.0 - 16.0 10/30/2018 [facility] HEMATOLOGY Basophils 0.8 0.0 - 1.0 10/30/2018 [facility] HEMATOLOGY Eosinophils 1.6 0.0 - 4.0 10/30/2018 [facility] HEMATOLOGY Monocytes 6.6 2.0 - 12.0 10/30/2018 [facility] HEMATOLOGY Lymphocytes 16.1 20.0 - 40.0 10/30/2018 [facility] HEMATOLOGY Segs 74.9 45.0 - 75.0 10/30/2018 [facility] HEMATOLOGY Basophils # 0.1 0.0 - 0.2 10/30/2018 [facility] HEMATOLOGY Eosinophils # 0.2 0.0 - 0.5 10/30/2018 [facility] HEMATOLOGY Monocytes # 0.8 0.0 - 0.8 10/30/2018 [facility] HEMATOLOGY Lymphocytes # 1.9 1.0 - 5.5 10/30/2018 [facility] HEMATOLOGY Neutrophils # 9.0 1.5 - 8.1 10/30/2018 [facility] Pathology Reports No Data Provided for This [...] the level of the cavoatrial junction. 06/06/2020 [facility] Abdomen AP DX Abdomen AP DX 3:00 CDT Clinical: - Abdominal distention ileus Comparison: No prior exam. Findings: Portions of stomach, small bowel, and colon containing gas. Rectal gas is present. No gross pneumoperitoneum is seen on this portable exam. Gastrotomy tube is noted. Osteopenia is present.. Impression: Findings compatible with ileus. 06/02/2020 [place] Chest Pulmonary Embolism CTA Chest Pulmonary Embolism [...] Please see additional comments above . 05/31/2020 [place] Liver US EXAM: Liver US DATE: 05/31/2020 [...] No sonographic evidence for acute cholecystitis. 05/31/2020 [facility] Ext Lower Venous Doppler Bilat US EXAM: [...] the visible BILATERAL lower extremity veins. 05/31/2020 [facility] Chest 1view DX Chest 1view DX 05/31/2020 3:00 CDT Clinical: Pneumonia Comparison: 05/30/2020 exam. Findings: The right lung consolidation is mildly improved. The tracheostomy tube is stable. The heart size is within normal limits for portable technique. Stable left cardiac pacing device. Impression: Mildly improved right lung consolidation. 05/31/2020 [place] ED Abdomen/Pelvis IV contrast only CT ED [...] necrosis . See further details above. 05/30/2020 [facility] Brain wo contrast CT EXAMINATI ON: Noncontrast [...] seen in the setting of mastoiditis. 05/30/2020 [facility] Chest 1view DX SINGLE VIEW RAEANN ST [...] process, including viral pneumonia. Interval tracheostomy. 05/30/2020 [facility] Chest 1view DX EXAM: XR CHEST 1 VIEW DATE: 10/29/2018 18:53 [facility] INDICATION: - dyspnea hx copd, cough COMPARISON: [...] limits. IMPRESSION: No acute radiographic abnormality 10/29/2018 [facility] Consultation Notes No Data Provided for This Section Discharge Summaries No Data Provided for This Section History and Physicals No Data Provided for This Section Vital Signs Vital Sign Value Date Comments Source Systolic (mm Hg) 105 06/06/2020 [facility] Diastolic (mm Hg) 55 06/06/2020 [facility] Respitory Rate 20 06/06/2020 [facility] Heart Rate 69 06/06/2020 [facility] Systolic (mm Hg) 119 06/06/2020 [facility] Diastolic (mm Hg) 60 06/06/2020 [facility] Respitory Rate 20 06/06/2020 [facility] Heart Rate 74 06/06/2020 [facility] Heart Rate 77 06/06/2020 [facility] Respitory Rate 18 06/06/2020 [facility] Systolic (mm Hg) 142 06/06/2020 [facility] Diastolic (mm Hg) 66 06/06/2020 [facility] Temperature Oral (F) 98.6 F 06/05/2020 [facility] Temperature Oral (F) 98.7 F 06/05/2020 [facility] Temperature Oral (F) 98.1 F 06/04/2020 [facility] Heart Rate 71 06/03/2020 [facility] Respitory Rate 21 06/03/2020 [facility] Systolic (mm Hg) 151 06/03/2020 [facility] Diastolic (mm Hg) 68 06/03/2020 [facility] Heart Rate 77 06/03/2020 [facility] Respitory Rate 22 06/03/2020 [facility] Systolic (mm Hg) 169 06/03/2020 [facility] Diastolic (mm Hg) 75 06/03/2020 [facility] Heart Rate 70 06/02/2020 [facility] Systolic (mm Hg) 156 06/02/2020 [facility] Diastolic (mm Hg) 76 06/02/2020 [facility] Respitory Rate 26 06/02/2020 [facility] Height 165.1 cm 06/01/2020 [facility] Height 165.1 cm 06/01/2020 [facility] Height 165.1 cm 06/01/2020 [facility] Weight 59.6 05/31/2020 [facility] BMI Calculated 21.87 05/31/2020 [facility] Temperature Oral (F) 99.1 F 05/31/2020 [facility] BMI Calculated 26.35 05/30/2020 [facility] Weight 61.2 05/30/2020 [facility] Systolic (mm Hg) 155 10/30/2018 [facility] Diastolic (mm Hg) 73 10/30/2018 [facility] Temperature Oral (F) 98.7 F 10/30/2018 [facility] Heart Rate 63 10/30/2018 [facility] Respitory Rate 18 10/30/2018 [facility] Respitory Rate 18 10/30/2018 [facility] Systolic (mm Hg) 156 10/30/2018 [facility] Diastolic (mm Hg) 74 10/30/2018 [facility] Temperature Oral (F) 99.2 F 10/30/2018 [facility] Heart Rate 79 10/30/2018 [facility] Temperature Oral (F) 97.9 F 10/30/2018 [facility] Heart Rate 73 10/30/2018 [facility] Systolic (mm Hg) 156 10/30/2018 [facility] Diastolic (mm Hg) 74 10/30/2018 [facility] Respitory Rate 18 10/30/2018 [facility] BMI Calculated 25.56 10/30/2018 [facility] Weight 61.364 10/30/2018 [facility] Height 154.94 cm 10/30/2018 [facility] Height 61 1 [facility] Diastolic (mm [...] Date Status Source [facility] shoulder/back pain [id number] 11/24/2016 11/24/2016 [facility] Observation [id number] Wisam Lee 10/30/2018 10/30/2018 [facility] [place] Inpatient [id number] Kim Damon 05/30/2020 06/07/2020 [place] Procedures Procedure Code Date Perfomer Comments Source Abdominal hysterectomy [id number] 05 10/04/1972 [facility] [place] Assessment and Plan Assessment and Plan Date [...] PREMA Robles Extracted from:Title: General Admission Author: Btezy Ang MD Date: 05/31/20 Impression and Plan Diagnosis Toxic metabolic encephalopathy (RUE91-KZ G92, Working, Medical). Sacral decubitus ulcer, stage IV (RYA23-RQ L89.154, Working, Medical). Protein-calorie malnutrition, severe (XVJ26-MP E43, Working, Medical). Pneumonia (XCL27-XB J18.9, Working, Medical). Chronic respiratory failure (YTN87-WO J96.10, Working, Medical). Acute sepsis (IWS51-IN A41.9, Working, Medical). Patient is a facility [...] Extracted from:Title: History and Physical Author: Kim Daomn MD Date: 05/30/20 1.Acute sepsis(A41.9) Chest x-ray [...] due to anemia. Inpatient ICU status. 06/03/2020 [facility] Extracted from:Title: History and Physic al Author: Theresa Brown DO Date: 10/30/18 68 year old female with shortness of david ath and dyspnea on exertion. 1.COPD exacerbation(J44.1) Continue with duonebs. Continue with oxygen and wean to room air. Hold coreg.Discharge with inhalers and follow up with pulmonary for outpatient pulmonary function tests. Ordered: Admit/Condition, 10/30/18 0:17:00 BARREL BANDER, Status: Out Patient with Observation Services, Acute, [...] with escitalopram 6.Chronic GERD(K21.9) Continue with protonix. [place] Physician Hospitalist is primary service. Please page [phone] for questions. Ambulatory DC pending medical clearance. 10/30/2018 [facility] Plan of Care No Data Provided for This Section Social History Social History Date Source Social History TypeResponse Alcohol Alcohol use interferes with work or home: No. Substance Abuse IV drug use: No. Smoking Status Never smoker; Exposure to Tobacco Smoke None; Cigarette Smoking Last 365 Days No; Reg Smoking Cessation Counseling No entered on: 10/29/18 10/30/2018 [facility] Social History TypeResponse Alcohol Alcohol use interferes with work or home: No. Substance Abuse IV drug use: No. Smoking Status Never smoker; Exposure to Tobacco Smoke None; Cigarette Smoking Last 365 Days No; Reg Smoking Cessation Counseling No entered on: 10/29/18 10/30/2018 [facility] Social History ElementQualifiersDate Rep orted Smoking status: . Are you a: Current Smoker 20 Years Nov 24, 2016 alcohol no. Nov 24, 2016 11/24/2016 [facility] Family History No Data Provided for This Section Advance Directives No Data Provided for This Section Functional Status No Data Provided for This Section
--- NOTE | 2020-07-15 21:11 | Diagnostic Imaging Report ---
EXAMINATION: CHEST SINGLE (PORTABLE) INDICATION: ^ANEMIA COMPARISON: None FINDINGS: AP view TUBES and LINES: Left chest wall cardiac device in place. Tracheostomy tube in place with tip at the level of the clavicles. Left PICC in place with tip at inferior SVC. LUNGS: Lungs are well inflated. Central vascular congestion and mild interstitial edema. The left costophrenic angle is excluded from the image. Retrocardiac opacification. PLEURA: No significant pleural effusion or pneumothorax. HEART AND MEDIASTINUM: The cardiomediastinal silhouette is unremarkable. BONES AND SOFT TISSUES: No acute osseous lesion. Soft tissues are unremarkable. UPPER ABDOMEN: No free air under the diaphragm. IMPRESSION: Central vascular congestion and mild additional edema. Retrocardiac opacification, could represent atelectasis or developing pneumonia in the appropriate clinical context. Signed by: Dr. Ole Lombardo MD on 07/15/2020 9:08 PM
[2020-07-15 21:31] LABS: FERRITIN 2072.54 ng/mL (4.63-204.00)
--- NOTE | 2020-07-15 22:07 | Consultation ---
DATE OF CONSULTATION: CHIEF COMPLAINT: Anemia and respiratory failure. HISTORY OF PRESENT ILLNESS: The patient is a 70-year-old woman with a history of neurological problems, chronic respiratory failure, and vent dependence. She also has a PEG. She has a history of chronic anemia and has required blood transfusions in the past. She was transferred from [facility] with a hemoglobin of 5.4. The [facility] did not report any rectal bleeding. There was no vomiting or bleeding from the PEG tube. The patient did not have any fevers or other reported symptoms. PAST SURGICAL HISTORY: 1. Status post tracheostomy. 2. Status post PEG placement. PAST MEDICAL HISTORY: 1. Chronic anemia. 2. Respiratory failure. 3. Chronic neurological disease. ALLERGIES: THE PATIENT IS ALLERGIC TO ASPIRIN AND PENICILLIN. FAMILY HISTORY: Noncontributory. SOCIAL HISTORY: The patient is a resident at [facility]. REVIEW OF SYSTEMS: No fevers. No reported nausea or vomiting. No reported abdominal pain. No reported diarrhea. PHYSICAL EXAMINATION: VITAL SIGNS: The patient is afebrile. The blood pressure is 95/80 and pulse is 80. HEENT: Shows no facial swelling or erythema. LYMPHATIC: Shows no submandibular, cervical, or supraclavicular adenopathy. There is tracheostomy in good position. CARDIAC: Reveals regular rate and rhythm with normal S1, S2. LUNGS: Auscultation of lungs shows decreased breath sounds at the bases. There is no wheezing. ABDOMEN: Soft and nontender. There is a PEG tube in place. The patient has a PICC line in place. The site is clean. There is no drainage. EXTREMITIES: Shows no leg edema or calf tenderness. There is no cyanosis or clubbing. SKIN: Shows no rashes. NEUROLOGICAL: Shows the patient to be disoriented. LABORATORY DATA: White blood cell count is 9, hemoglobin is 5.1, platelet count is 47. The ASQ-tk-bubrqotutb ratio is 79 to 1.44. Albumin is 1.4. Other electrolytes are within normal limits. RADIOGRAPHIC DATA: Chest x-ray shows retrocardiac opacification, possibly from atelectasis and there is some mild edema. IMPRESSION: 1. Anemia secondary to chronic blood loss, present on admission. 2. Thrombocytopenia. 3. Chronic renal failure, stage 3. 4. Chronic respiratory failure. 5. Moderate protein-calorie malnutrition. PLAN: 1. The patient to receive 2 units of packed red blood cells. 2. Continue current ventilator settings and monitor as needed. 3. Continue enteral feedings. 4. Tracheostomy care. 5. Wound care and wound prophylaxis. MD PASCUAL Forde/CHIDI /[id number]
--- NOTE | 2020-07-15 23:00 | NUR ---
Admitted patient restless on ventilator and blood transfusion, wiped down, chg, sacral dressing changed. settled in bed
[2020-07-15 23:40] VITALS: BP 112/84
[2020-07-16] VITALS (28 sets, daily range): BP systolic 68–149; BP diastolic 37–132
[2020-07-16] MEDS ORDERED: SODIUM CHLORIDE 0.9% 100 ML ONE (00:45)
[2020-07-16] MEDS ORDERED: SODIUM CHLORIDE 0.9% 50ML 50 ML ONE (03:35)
--- NOTE | 2020-07-16 05:00 | NUR ---
PATIENT STARTED ON TUBE FEEDING, GOAL OF 30
[2020-07-16] MEDS ORDERED: NOREPINEPHRINE 8 MG/D5W 250 ML 250 ML ONE (06:15)
--- NOTE | 2020-07-16 06:30 | NUR ---
Called Dr White, got an order for levophed, titrate to keep map above 60 and not 65
[2020-07-16] MEDS ORDERED: ACETAMINOPHEN 325 MG TAB PO PRN (06:45)
--- NOTE | 2020-07-16 07:00 | NUR ---
Received orders to [facility] all [facility]
[2020-07-16] MEDS ORDERED: METOCLOPRAMIDE HCL 10 MG TAB PO PRN (07:15)
[2020-07-16] MEDS: NOREPINEPHRINE 8 MG/D5W 250 ML 250 ML IV SCH (07:37)
--- NOTE | 2020-07-16 07:44 | Diagnostic Imaging Report ---
EXAMINATION: CHEST SINGLE (PORTABLE) INDICATION: ^resp failure ^[id number] ^0550 COMPARISON: 07/15/2020 FINDINGS: AP view TUBES and LINES: Stable left chest wall cardiac device and tracheostomy tube. LUNGS: Lungs are well inflated. Central vascular congestion on mild interstitial edema. Unchanged retrocardiac opacification. PLEURA: No pleural effusion or pneumothorax. HEART AND MEDIASTINUM: The cardiomediastinal silhouette is unremarkable. BONES AND SOFT TISSUES: No acute osseous lesion. Soft tissues are unremarkable. UPPER ABDOMEN: No free air under the diaphragm. IMPRESSION: No significant interval change from prior exam. Signed by: Dr. Ole Lombardo MD on 07/16/2020 7:41 AM
--- NOTE | 2020-07-16 07:54 | NUR ---
H&P cc: low blood counts HPI: 70yoF,with chr resp failure after PNA, and stage 4 sacral ulcer, with hx ESBL proteus infection, now with worsening anemia not on AC. No noted melena/hematochezia; Does receive TF via feeding tube. Pt unable to provide history. DId have worsening respiratory status last week, CXR showed Left HAP at that time, treated with levaquin with improvement after 3 days. PMH: Hypertensive heart ds, chr resp failure s/p Trach, dysphagia s/p PEG, COPD, sacral ulcer stage 4, left femoral head Avascular Necrosis, cardiomyopathy, HLD, neuropathy, HAP PSHX: trach, PEG, hysterectomy, Allergies; see emr FH/SH; no illicits meds; see MAR rOS: unobtainable v/s;revd PE tired appearing; CHr Facial asymmetry anicteric; trach ns1s2 FINE CRACKLE AUDIBLE; REDUCED BS soft nt; PEG RAMIREZ Stage 4 sacral ulcer no leg tenderness skin dry flat affect not interactive labs/meds revd A/P: 70yoF Septic shock- pressor/ broad spec abx Left HAP- IV merrem/vanco Mod-severe anemia- check anemia panel, give blood, IV PPI; GI eval; stool occult blood SHI- give blood; Iron deficiency aneia- start ferrlecit Thrombocytopenia- check HIT ab Stage 4 sacral ulcer- wound consult; IV abx CHr resp failure- vent mgmt per pulm 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
[2020-07-16] MEDS ORDERED: FUROSEMIDE 40 MG TAB PO ONE (08:00)
[2020-07-16] MEDS: MEROPENEM 500MG/ NS 50ML 50 ML IV SCH ×2 (08:06→15:47)
[2020-07-16] MEDS: AMIODARONE HCL 200 MG TAB PO SCH (08:07)
[2020-07-16] MEDS: FOLIC ACID 1 MG TAB PO SCH (08:07)
[2020-07-16] MEDS: PANTOPRAZOLE 40 MG 10ML VIAL IV SCH ×2 (08:07→16:16)
[2020-07-16] MEDS: GABAPENTIN 100 MG CAP PO SCH ×2 (08:08→16:16)
[2020-07-16] MEDS: TRAMADOL HCL 50 MG TAB PO PRN (08:08)
[2020-07-16] MEDS: ESCITALOPRAM OXALATE 10 MG TAB PO SCH (08:08)
[2020-07-16] MEDS: ZINC SULFATE 220 MG CAP PO SCH (08:08)
[2020-07-16] MEDS: ASCORBIC ACID 500 MG TAB PO SCH ×2 (08:11→16:16)
[2020-07-16 08:16] LABS: BASOPHILS % 0.2 % (0.0-1.0); EOSINOPHILS # (AUTO) 0.1 (0.0-0.4); EOSINOPHILS % 0.9 % (0.0-6.0); HEMATOCRIT 26.1 % (34.2-44.1); HEMOGLOBIN 8.4 g/dL (12.0-16.0); LYMPHOCYTES # (AUTO) 1.2 (1.0-3.2); LYMPHOCYTES % 10.3 % (18.0-39.1); MEAN CORPUSCULAR HEMOGLOBIN 28.5 pg (28-32); MEAN CORPUSCULAR HGB CONC 32.2 g/dL (31-35); MEAN CORPUSCULAR VOLUME 88.5 fL (81-99); MONOCYTES % 8.8 % (4.4-11.3); NEUTROPHILS # (AUTO) 9.1 (2.1-6.9); NEUTROPHILS % 78.8 % (38.7-80.0); RED BLOOD COUNT 2.95 x10e6/uL (3.6-5.1); RED CELL DISTRIBUTION WIDTH 16.2 % (11.7-14.4)
[2020-07-16 08:20] LABS: PLATELET COUNT 48 x10e3/uL (140-360)
[2020-07-16 08:36] LABS: ANION GAP 15.3 mmol/L (8-16); CALCIUM 7.1 mg/dL (8.4-10.2); CREATININE, SERUM 1.21 mg/dL (0.57-1.11); POTASSIUM 4.3 mmol/L (3.5-5.1)
[2020-07-16] MEDS: SODIUM FERRIC GLUCONATE COMPLX 125 MG in SODIUM CHLORIDE 0.9% 100 ML 100 ML IV SCH (08:36)
[2020-07-16] MEDS: MULTIVITAMINS 5 ML LIQUID GT SCH (08:36)
[2020-07-16] MEDS ORDERED: DEXTROSE 50% SYRINGE 50 ML IV ONE (08:47)
[2020-07-16] MEDS ORDERED: FAMOTIDINE 20 MG TAB PO SCH (09:00)
[2020-07-16] MEDS ORDERED: LEVOFLOXACIN 500MG/D5W 100ML 100 ML IV SCH (09:00)
[2020-07-16] MEDS ORDERED: DEXTROSE 50% SYRINGE 50 ML IV PRN (09:30)
[2020-07-16] MEDS ORDERED: LACTATED RINGER'S 1,000 ML INJ ONE (11:00)
[2020-07-16 11:24] LABS: ABG HCO3 28 mmol/L (22-26); ABG PCO2 47 mmHg (35-45); ABG PH 7.38 (7.35-7.45); ABG PO2 105 mmHg (80-105); ABG TCO2 29
--- NOTE | 2020-07-16 11:38 | Progress Note ---
DATE: Pulmonary Critical Care Progress Note. SUBJECTIVE: The patient received 3 units of packed red blood cells yesterday. She was seen by Wound Care and her sacral and heel wounds were dressed. She was started on low-dose Levophed and is on Levophed at 2 mcg. She remains on mechanical ventilation. PHYSICAL EXAMINATION: VITAL SIGNS: The patient is afebrile. She is currently on a PRVC mode of ventilation at a rate of 18 with a tidal volume of 470 and a PEEP of 5. Her FiO2 is set at 40%. She remains on 2 mcg of Levophed. Her current oxygen saturation is 99% and her blood pressure is 91/43. Her pulse is 75. HEENT: Shows no facial swelling or erythema. She has a tracheostomy in good position. She has a PICC line. CARDIAC: Reveals regular rate and rhythm with normal S1 and S2. LUNGS: Auscultation of lungs shows decreased breath sounds at bases. There is no wheezing. ABDOMEN: Soft and nontender. There is no rebound or guarding. There is a feeding tube in place. She has a decubitus wound on her sacrum as well as her heels. LABORATORY DATA: Hemoglobin is now 8.4, white blood cell count is 11.5, and the platelet count is 48. The BUN to creatinine ratio is improved to 65/1.21. Other electrolytes are within normal limits. RADIOGRAPHIC DATA: Chest x-ray shows mild interstitial edema and hyperinflated lung lester. IMPRESSION: 1. Anemia secondary to chronic blood loss, present on admission. 2. Chronic respiratory failure. 3. Thrombocytopenia. 4. Acute on chronic renal failure. 5. Moderate protein-calorie malnutrition. 6. Stage IV decubitus ulcers, present on admission. PLAN: 1. Wean the patient off Levophed. 2. The patient is now on meropenem. We will await culture results. 3. Continue wound care. 4. Repeat ABG. 5. Increase enteral feedings as tolerated. 6. GI evaluation. Greater than 35 minutes in direct critical care time. Nixon White MD [facility]/ANNAL /[id number]
--- NOTE | 2020-07-16 13:27 | NUR ---
WOUND CARE CONSULT 70 YO FEMALE HX OF LOW HEMIGLOBIN SUMA 14 0N MODERATE PUP STATUS AND INTERVENTIONS ON ALTERNATING PRESSURE MATTRESS LABS: WBC- 9.01 HGB- 5.1 GLUCOSE-90 SKIN ASSESSMENT COMPLETE PATIENT PRESENTS WITH MULTIPLE SITES LISTED AND DOCUMENTED ON WOUND ASSESSMENT FORM RECOMMENDATIONS: NURSING TO CONTINUE TO MONITOR PATIENT AND KEEP SKIN CLEAN AND FREE FROM LOOSE STOOL OR IRRITATING MOISTURE AND CONTINUE TO FOLLOW MODERATE PUP INTERVENTIONS NURSING TO CONTINUE TO MAINTAIN PATIENT NUTRITION TO SUPPORT WOUND HEALING NURSING TO CLEAN VICKEY PEG TUBE WITH NORMAL SALINE DAILY AND APPLY ALLEVYN FOAM DRESSING CUT TO FIT BETWEEN PEG TUBE BASE AND SKIN NURSING TO CLEAN STAGE 2 ULCERATIONS TO LEFT AND RIGHT BUTTOCKS WITH NORMAL SALINE DAILY AND APPLY PURACOL COLLAGEN TO WOUND BASE AND COVER WITH ALLEVYN FOAM DRESSING NURSING TO CLEAN LEFT HEEL AND RIGHT HEEL UNSTAGEABLE ULCERATIONS WITH NORMAL SALINE DAILY AND BETADINE DAMP NONA TO ESCHAR AND COVER WITH ALLEVYN FOAM DRESSING NURSING TO CLEAN SACRAL STAGE 4 ULCERATION WITH NORMAL SALINE DAILY AND APPLY TENDER WET ACTIVE WOUND BASE COVER WITH 4X4 AND ALLEVYN FOAM DRESSING TO WOUND BASE AND UNDERMINING AND COVER WITH ALLEVYN FOAM DRESSING Addendum: 07/16/20 at 1344 by Salvatore Ortiz RN Amended: Links added.
[2020-07-16 17:00] LABS: BASOPHILS % 0.1 % (0.0-1.0); EOSINOPHILS # (AUTO) 0.1 (0.0-0.4); HEMATOCRIT 27.5 % (34.2-44.1); HEMOGLOBIN 8.7 g/dL (12.0-16.0); LYMPHOCYTES # (AUTO) 0.9 (1.0-3.2); LYMPHOCYTES % 11.9 % (18.0-39.1); MEAN CORPUSCULAR HEMOGLOBIN 28.2 pg (28-32); MEAN CORPUSCULAR HGB CONC 31.6 g/dL (31-35); MONOCYTES # (AUTO) 0.6 (0.2-0.8); MONOCYTES % 7.2 % (4.4-11.3); RED BLOOD COUNT 3.09 x10e6/uL (3.6-5.1); RED CELL DISTRIBUTION WIDTH 16.6 % (11.7-14.4)
[2020-07-16 17:04] LABS: PLATELET COUNT 43 x10e3/uL (140-360)
[2020-07-16 17:21] LABS: ANION GAP 15.2 mmol/L (8-16); CALCIUM 8.4 mg/dL (8.4-10.2); CREATININE, SERUM 1.43 mg/dL (0.57-1.11); MAGNESIUM 1.9 MG/DL (1.3-2.1); POTASSIUM 4.2 mmol/L (3.5-5.1)
--- NOTE | 2020-07-16 19:03 | NUR ---
Wound care assessed and changed wounds this morning. D50 administered for low blood sugar, BG recheck was 185. Dr. Brina White notifed and gave new orders. Tramadol prn given for pain, pt was grimacing and agitated appearing. Levophed drip titrated up during the shift. PICC line central dressing changed.
[2020-07-16] MEDS: OLANZAPINE 5 MG TAB PO SCH (21:00)
[2020-07-16] MEDS: ATORVASTATIN 40 MG TAB PO SCH (21:00)
[2020-07-17] VITALS (24 sets, daily range): BP systolic 82–131; BP diastolic 35–103
[2020-07-17] MEDS: MEROPENEM 500MG/ NS 50ML 50 ML IV SCH ×3 (00:43→16:52)
[2020-07-17 04:43] LABS: BASOPHILS % 0.2 % (0.0-1.0); EOSINOPHILS # (AUTO) 0.1 (0.0-0.4); EOSINOPHILS % 0.5 % (0.0-6.0); HEMATOCRIT 24.2 % (34.2-44.1); HEMOGLOBIN 7.6 g/dL (12.0-16.0); LYMPHOCYTES # (AUTO) 0.9 (1.0-3.2); LYMPHOCYTES % 8.1 % (18.0-39.1); MEAN CORPUSCULAR HEMOGLOBIN 27.8 pg (28-32); MEAN CORPUSCULAR HGB CONC 31.4 g/dL (31-35); MEAN CORPUSCULAR VOLUME 88.6 fL (81-99); MONOCYTES # (AUTO) 0.6 (0.2-0.8); MONOCYTES % 5.6 % (4.4-11.3); NEUTROPHILS # (AUTO) 9.4 (2.1-6.9); NEUTROPHILS % 84.8 % (38.7-80.0); PLATELET COUNT 65 x10e3/uL (140-360); RED BLOOD COUNT 2.73 x10e6/uL (3.6-5.1); RED CELL DISTRIBUTION WIDTH 16.8 % (11.7-14.4)
--- NOTE | 2020-07-17 04:56 | NUR ---
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 cct>35mins VIPUL IZQUIERDO MD, PHD.
[2020-07-17 05:03] LABS: ALBUMIN 1.3 g/dL (3.5-5.0); ALBUMIN/GLOBULIN RATIO 0.3 (0.8-2.0); ANION GAP 13.8 mmol/L (8-16); CALCIUM 7.8 mg/dL (8.4-10.2); CREATININE, SERUM 1.44 mg/dL (0.57-1.11); POTASSIUM 3.8 mmol/L (3.5-5.1)
[2020-07-17] MEDS: ACETAMINOPHEN 325 MG/10 ML UDC NG PRN ×2 (08:02→21:00)
--- NOTE | 2020-07-17 08:32 | Diagnostic Imaging Report ---
Chest, 1 view, 07/17/2020. History: Respiratory failure. Comparison: 07/16/2020. Findings: The cardiomediastinal silhouette and pulmonary vasculature are within normal limits for a portable exam. There are increased bilateral perihilar and bibasilar hazy opacities which partially obscure both hemidiaphragms. Tracheostomy tube and left subclavian AICD are unchanged in appearance. There are no acute osseous or soft tissue abnormalities. Impression: Increased bilateral pulmonary opacities suggestive of worsening edema/pneumonia. Signed by: Albert Chinchilla on 07/17/2020 8:29 AM
[2020-07-17] MEDS ORDERED: FUROSEMIDE INJ 10 MG/ML 4 ML VIAL IV ONE (09:45)
[2020-07-17] MEDS ORDERED: VANCOMYCIN 1GM/NS 250 ML 250 ML IV ONE (10:00)
[2020-07-17] MEDS: GABAPENTIN 100 MG CAP PO SCH ×2 (10:05→16:54)
[2020-07-17] MEDS: ASCORBIC ACID 500 MG TAB PO SCH ×2 (10:05→16:54)
[2020-07-17] MEDS: FOLIC ACID 1 MG TAB PO SCH (10:05)
[2020-07-17] MEDS: AMIODARONE HCL 200 MG TAB PO SCH (10:05)
[2020-07-17] MEDS: ESCITALOPRAM OXALATE 10 MG TAB PO SCH (10:05)
[2020-07-17] MEDS: PANTOPRAZOLE 40 MG 10ML VIAL IV SCH ×2 (10:06→16:54)
[2020-07-17] MEDS: ZINC SULFATE 220 MG CAP PO SCH (10:06)
--- NOTE | 2020-07-17 10:18 | Progress Note ---
DATE: SUBJECTIVE: The patient has more congestion today. She is now on Levophed at 8 mcg. She was seen in consultation by Infectious Disease. PHYSICAL EXAMINATION: VITAL SIGNS: The patient is afebrile, but T-max last night was 100.7, the blood pressure is 100/48, pulse is 85, and saturation 96%. Current ventilator settings, PRVC at a rate of 18 with a tidal volume of 470 and a PEEP of 5. FiO2 is set at 40%. The patient is breathing in the mid 20s. HEENT: Shows no facial swelling or erythema. LYMPHATIC: Shows no submandibular, cervical, supraclavicular adenopathy. There is an oral endotracheal tube. CARDIAC: Reveals a regular rate and rhythm. Normal S1, S2. LUNGS: Auscultation of lungs reveals rhonchorous breath sounds bilaterally. There is no wheezing. ABDOMEN: Soft and nontender. There is no rebound or guarding. EXTREMITIES: Shows 1 to 2+ leg edema. LABORATORY DATA: White blood cell count is 11.13, hemoglobin is 7.6, and the platelet count is 65. The BUN to creatinine ratio is 55 and 1.44. The other electrolytes are within normal limits. The albumin is 1.3. RADIOGRAPHIC DATA: Shows bilateral pulmonary opacities, suggestive of worsening edema. IMPRESSION: 1. Pneumonia with sepsis and healthcare acquired setting, present on admission. 2. Anemia secondary to chronic blood loss, present on admission. 3. Thrombocytopenia. 4. Chronic systolic congestive heart failure. 5. Stage IV decubitus ulcer, present on admission. 6. Moderate protein-calorie malnutrition. PLAN: 1. Continue current antibiotics with meropenem. Await culture results. 2. The patient to receive Lasix and albumin today. 3. Await official report from echocardiogram. 4. Continue wound care. 5. Repeat ABG. 6. Continue enteral feedings. 7. Prognosis remains poor. I have contacted the . Hopefully, he will call me back later today. Greater than 35 minutes in direct critical care time. Nixon White MD [facility]/ANNAL /[id number]
[2020-07-17] MEDS: SODIUM FERRIC GLUCONATE COMPLX 125 MG in SODIUM CHLORIDE 0.9% 100 ML 100 ML IV SCH (11:34)
[2020-07-17] MEDS: MULTIVITAMINS 5 ML LIQUID GT SCH (11:34)
[2020-07-17 12:15] LABS: BILIRUBIN,URINE NEGATIVE (NEGATIVE); CLARITY,URINE CLEAR (CLEAR); COLOR,URINE YELLOW (YELLOW); KETONES,URINE NEGATIVE (NEGATIVE); LEUKOCYTE ESTERASE ,URINE MODERATE (NEGATIVE); NITRITE,URINE NEGATIVE (NEGATIVE); PROTEIN,URINE DIPSTICK NEGATIVE (NEGATIVE); URINE UROBILINOGEN 0.2 mg/dL (0.2 - 1)
[2020-07-17 12:21] LABS: BACTERIA,URINE FEW /HPF; EPITHELIAL CELLS,URINE FEW /LPF; RBC,URINE 0-5 /HPF (0-5); TRANSITIONAL EPI CELLS,URINE FEW
[2020-07-17 12:22] LABS: MUCUS,URINE FEW (RARE)
[2020-07-17 12:39] LABS: ABG HCO3 27 mmol/L (22-26); ABG PCO2 39 mmHg (35-45); ABG PH 7.46 (7.35-7.45); ABG PO2 66 mmHg (80-105); ABG TCO2 28
[2020-07-17] MEDS: ALBUMIN 25% 25GM 100ML 0.25 GM/ML BTL IV SCH ×2 (15:10→21:15)
--- NOTE | 2020-07-17 16:10 | Consultation ---
DATE OF CONSULTATION: 07/17/2020 INFECTIOUS DISEASE CONSULT REASON FOR CONSULTATION: Septic shock. Thank you, Dr. Kim, for asking me to see this patient. HISTORY OF PRESENT ILLNESS: The patient is a 70-year-old woman who was referred for septic shock. She was unable to give history due to anoxic encephalopathy. This chart review showed that [facility]. She had been transfused with packed red blood cell since transfer. She spiked a low-grade fever and dropped blood pressure. She has left arm PICC line as well as indwelling Lubin catheter prior admission. Also, she has stage IV sacral decubitus ulcer. Additional information cannot be obtained at this time. PAST MEDICAL HISTORY: Chronic respiratory failure, hyperlipidemia, chronic obstructive pulmonary disease, cardiomyopathy. PAST SURGICAL HISTORY: Tracheostomy, AICD implant, PEG tube placement, and hysterectomy. ALLERGIES: PENICILLIN AND ASPIRIN. MEDICATIONS: See MAR. The current antibiotic is meropenem 500 mg IV piggyback q.8 hours. FAMILY HISTORY: Noncontributory. SOCIAL HISTORY: Unable to obtain. REVIEW OF SYSTEMS: The patient has had increased tracheal secretion according to the nurse. PHYSICAL EXAMINATION: GENERAL: Acutely ill. VITAL SIGNS: T-max 100.8, pulse rate 73, respiratory rate 29, blood pressure 105/35 (on pressors). Weight is not documented. HEENT: Normocephalic and atraumatic. There is no icterus or injection of conjunctiva. There is no ear or nasal discharge. Edentulous with moist oral mucosa. Uncooperative with pharyngeal examination. NECK: Supple. Tracheostomy site is clean. LUNGS: Rhonchi bilaterally. HEART: Normal S1 and S2. ABDOMEN: Soft and nontender. PICC tube site is clean. EXTREMITIES: No edema, clubbing, or cyanosis. SKIN: There is a large stage IV decubitus ulcer of the sacrum as well as bilateral heel decubiti. BALLET TEACHER: Awake. LABORATORY AND DIAGNOSTICS: WBC 06931; posttransfusion hemoglobin 7.6/ hematocrit 24.2; platelet 65,000, neutrophils 84.8, lymphocytes 8.1, monocytes 5.6, and eosinophils 0.5. BUN 55, creatinine 1.44, blood glucose 227. Coronavirus PCR pending. Chest x-ray showed increased bilateral pulmonary opacities suggestive of worsening congestion/pneumonia. IMPRESSION: 1. Septic shock. Source is unclear, but may include PICC line infection, pneumonia, urinary tract infection and infected decubitus ulcer, all present on admission. We will check blood, tracheal aspirate and urine cultures. 2. Continue meropenem 500 mg IV piggyback q.8 hours and administer vancomycin 1 g IV piggyback once, if not yet done. Avoid iron infusion while patient is septic. 3. Hyperglycemia. Glycemic control per Internal Medicine. MD ALEJANDRA Griffin/[facility] /[id number]
--- NOTE | 2020-07-17 17:01 | NUR ---
Nutrition Intervention Note RD Recommendation(s) for Physician: -Recommend Vital AF 1.2 @ goal rate of 60 mL/hr (provides 1728 kcal, 108 g protein, and 1168 mL water) -Michael BID to promote wound healing -Water/fluid management per MD Plan of Care: RD following, monitoring for tolerance and adequacy, tube feed recommendation Nutrition reason for involvement: Nutrition Risk Trigger , pressure ulcer, and enteral nutrition RD Assessment (07/17) Pt is a 70 year old female admitted with chronic anemia. Pt has chronic respiratory failure is vent dependent with a PEG tube. Unable to obtain nutrition history from pt. It is noted that pt has a stage 2 pressure ulcer to left and right buttocks and stage 4 sacral pressure ulcer per wound care note. Tube feedings were started. Recommendations provided. RD to manage TF order per Dr. White. Will continue to monitor. Principal Problems/Diagnoses: chronic anemia PMH: Chronic anemia, Respiratory failure, Chronic neurological disease. GI: non-tender/soft abdomen Skin: stage 2 pressure ulcer to left and right buttocks and stage 4 sacral pressure ulcer per wound care note Labs: (07/17) Na 140, K 3.8, BUN 55, Cr 1.44, Glu 227, Ca 7.8 Meds: IV iron, multivitamin, zinc sulfate, vitamin C, protonix, antibiotic, Lipitor, norepinephrine, reglan Ht: 60 in Wt: 134.19 lbs BMI: 26.2 kg/m2 IBW: 100 lbs Malnutrition Evaluation (07/17/20) Unable to assess. Will re-evaluate at follow-up as appropriate. Energy intake: Unable to assess Weight loss: Unable to assess; there are no previous weights in chart Fat loss: unable to evaluate Muscle loss: unable to evaluate Supporting Evidence: Fluid accumulation: 1 to 2+ leg edema per MD note Functional Status: not assessed Nutrition Prescription (Diet Order): Vital AF 1.2 @ 30 mL/hr Estimated Nutritional Needs: 1240-7764 calories/day (25-30 kcal/kg CBW) 73-120 g protein/day (1.2-2 g pro/kg CBW) Diet Adequacy: Not meeting calorie needs, Not meeting protein needs Tolerance: Tolerating TF Diet Education Needs Assessment: Diet education not indicate, pt is intubated. . Nutrition Care Level: moderate Nutrition Diagnosis: Increased nutrient needs related to increased demand for protein and kcal as evidenced by pressure ulcers. Goal: Patient will meet 75-100% of estimated needs by follow up Progress: N/A Interventions: -Composition, Rate, Route, Recommended Modifications Monitoring/Evaluation: -Total energy intake, Total protein intake, Formula/Solution, Weight change Signed: Stephanie Martinez RD, LD
[2020-07-17] MEDS: NOREPINEPHRINE 8 MG/D5W 250 ML 250 ML IV SCH (20:12)
[2020-07-17] MEDS: OLANZAPINE 5 MG TAB PO SCH (20:53)
[2020-07-17] MEDS: ATORVASTATIN 40 MG TAB PO SCH (20:53)
[2020-07-17] MEDS: FUROSEMIDE INJ 10 MG/ML 4 ML VIAL IV SCH (21:00)
[2020-07-18] VITALS (24 sets, daily range): BP systolic 78–146; BP diastolic 33–68
[2020-07-18] MEDS: MEROPENEM 500MG/ NS 50ML 50 ML IV SCH ×3 (00:11→16:46)
[2020-07-18 04:41] LABS: BASOPHILS % 0.4 % (0.0-1.0); EOSINOPHILS # (AUTO) 0.1 (0.0-0.4); EOSINOPHILS % 1.2 % (0.0-6.0); HEMATOCRIT 22.5 % (34.2-44.1); HEMOGLOBIN 7.1 g/dL (12.0-16.0); LYMPHOCYTES # (AUTO) 1.2 (1.0-3.2); LYMPHOCYTES % 12.6 % (18.0-39.1); MEAN CORPUSCULAR HEMOGLOBIN 29.1 pg (28-32); MEAN CORPUSCULAR HGB CONC 31.6 g/dL (31-35); MEAN CORPUSCULAR VOLUME 92.2 fL (81-99); MONOCYTES # (AUTO) 0.8 (0.2-0.8); MONOCYTES % 8.1 % (4.4-11.3); NEUTROPHILS # (AUTO) 7.4 (2.1-6.9); NEUTROPHILS % 76.6 % (38.7-80.0); PLATELET COUNT 61 x10e3/uL (140-360); RED BLOOD COUNT 2.44 x10e6/uL (3.6-5.1); RED CELL DISTRIBUTION WIDTH 17.8 % (11.7-14.4)
[2020-07-18 05:07] LABS: ALBUMIN 1.9 g/dL (3.5-5.0); ALBUMIN/GLOBULIN RATIO 0.5 (0.8-2.0); ANION GAP 14.7 mmol/L (8-16); CALCIUM 7.7 mg/dL (8.4-10.2); CREATININE, SERUM 1.35 mg/dL (0.57-1.11); POTASSIUM 3.7 mmol/L (3.5-5.1)
[2020-07-18] MEDS ORDERED: ALBUMIN 25% 12.5GM 50ML 100 ML IV ONE (05:51)
--- NOTE | 2020-07-18 06:16 | NUR ---
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 cct>35mins 10-15 falling Hb- monitor; improving plts; CXR worse; on lasix; use pressors as needed; continue nutrition; cont LWC. cct>35mins. VIPUL IZQUIERDO MD, PHD.
[2020-07-18] MEDS: ALBUMIN 25% 25GM 100ML 0.25 GM/ML BTL IV SCH (06:17)
--- NOTE | 2020-07-18 08:03 | NUR ---
OBTAINED PRIOR HOSPITAL CLINICALS PROVIDED TO NURSE TO PUT IN CHART
--- NOTE | 2020-07-18 08:15 | Diagnostic Imaging Report ---
TECHNIQUE: Frontal view of the chest. INDICATION: ^resp failure ^[id number] ^[id number] COMPARISON: Prior day. DISCUSSION: Limited evaluation due to portable technique. Lines and hardware: Stable. Heart and mediastinum: Stable. Lungs and pleura: Interval improvement in bilateral interstitial airspace opacities residual opacities are still identified at the lung bases. Prominent interstitial markings are noted. Soft tissues and bones: No acute abnormality. IMPRESSION: Interval improvement in bilateral pulmonary interstitial airspace opacities. Residual opacities are noted at the lung bases, left greater than right. Stable prominent interstitial markings suggestive of fluid overload. Stable support structures. Signed by: Mike Jain MD on 07/18/2020 8:11 AM
[2020-07-18] MEDS: MULTIVITAMINS 5 ML LIQUID GT SCH (08:16)
[2020-07-18] MEDS: FUROSEMIDE INJ 10 MG/ML 4 ML VIAL IV SCH (08:16)
[2020-07-18] MEDS: PANTOPRAZOLE 40 MG 10ML VIAL IV SCH ×2 (08:18→16:48)
[2020-07-18] MEDS: ESCITALOPRAM OXALATE 10 MG TAB PO SCH (08:18)
[2020-07-18] MEDS: FOLIC ACID 1 MG TAB PO SCH (08:18)
[2020-07-18] MEDS: GABAPENTIN 100 MG CAP PO SCH ×2 (08:18→16:48)
[2020-07-18] MEDS: AMIODARONE HCL 200 MG TAB PO SCH (08:18)
[2020-07-18] MEDS: ASCORBIC ACID 500 MG TAB PO SCH ×2 (08:19→16:49)
[2020-07-18] MEDS: ZINC SULFATE 220 MG CAP PO SCH (08:19)
[2020-07-18] MEDS: SODIUM FERRIC GLUCONATE COMPLX 125 MG in SODIUM CHLORIDE 0.9% 100 ML 100 ML IV SCH (08:41)
--- NOTE | 2020-07-18 09:34 | Progress Note ---
DATE: SUBJECTIVE: The patient has received Lasix and albumin yesterday. She was seen in consultation by Infectious Disease. She remains on Levophed at 7 mcg. PHYSICAL EXAMINATION: VITAL SIGNS: Blood pressure is 146/52, pulse is 66 and saturation is 100%. She is currently on an assist-control mode of ventilation at a rate of 18 with a tidal volume of 430 and FiO2 of 40%. HEENT: Shows no facial swelling or erythema. There is a tracheostomy site. Site is clean. There is no drainage. CARDIAC: Reveals a regular rate and rhythm with normal S1 and S2. LUNGS: Auscultation of lungs reveals crackles and rhonchi bilaterally. There is no wheezing. ABDOMEN: Soft and nontender. There is no rebound or guarding. EXTREMITIES: Shows no leg edema or calf tenderness. NEUROLOGIC: No focal abnormalities, although the patient does not interact well. LABORATORY DATA: Blood gas is 7.46, 39, 66 and 27. BUN to creatinine ratio is 41 to 1.35. Other electrolytes are within normal limits. Albumin is 1.9. RADIOGRAPHIC DATA: Cyst x-ray shows improved bilateral airspace opacities. IMPRESSION: 1. Pneumonia with sepsis and healthcare associated infection, present on admission. 2. Acute on chronic systolic congestive heart failure. 3. Anemia secondary to chronic blood loss. 4. Stage IV decubitus ulcer, present on admission. 5. Thrombocytopenia. 6. Moderate protein-calorie malnutrition. PLAN: 1. Continue current antibiotics including meropenem. Await culture results and further input from Infectious Disease. 2. Continue diuresis as needed. 3. Decrease tidal volume and minute ventilation. 4. Continue wound care. 5. Continue enteral feedings. 6. Discussed disposition with Dr. Kim and Case Management. Greater than 35 minutes in direct critical care time. Nixon White MD [facility]/MODL /[id number]
[2020-07-18] MEDS ORDERED: DIPHENOXYLATE/ATROPINE TAB PO ONE (12:50)
[2020-07-18] MEDS: ACETAMINOPHEN 325 MG/10 ML UDC NG PRN ×2 (13:19→22:39)
--- NOTE | 2020-07-18 13:55 | Consultation ---
DATE OF CONSULTATION: Wound care consultation HISTORY OF PRESENT ILLNESS: A 70-year-old black female patient, suffers from chronic respiratory failure on tracheostomy ventilation, pacemaker placement, PEG tube placement, has multiple pressure ulcers. Wound consult was called. The patient is bed bound. She is awake, responsive, follows commands. She has a large sacral pressure ulcer in the sacrum, stage IV, measures approximately 10 x 9 x 2 cm with undermining between o'clock position. Right lower end at 5 o'clock position. The patient has area of necrosis of the wound bed. No odor noted, moderate to copious drainage percent serosanguineous, right posterior thigh. The patient has multiple excoriations and stage II wounds, has diarrhea. Bilateral heels; the patient has wound on left heel, has unstageable black necrotic area on the right heel, has stage IV wound with a blister. PAST MEDICAL HISTORY: Chronic respiratory failure, hyperlipidemia, and cardiomyopathy. SURGICAL HISTORY: Tracheostomy, pacemaker implantation, PEG tube, and hysterectomy. ALLERGIES: TO PENICILLIN. PHYSICAL EXAMINATION: VITAL SIGNS: Temperature 100.8, pulse 73, blood pressure 110/35. Weight 134.19 pounds. Height 60 inches. HEENT: Normal. NECK: The patient has a tracheostomy in place. LUNGS: Diminished at the base. CVS: Normal. ABDOMEN: Soft. PEG tube in place. Wound described in the HPI. 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 ASSESSMENT: Sacral stage IV pressure ulcer, large bone palpable, not exposed. Left heel unstageable, right heel stage IV, multiple stage II and excoriations to the right posterior thigh and buttock. PLAN: Pack the sacral wound with a half strength Dakin's moistened Kerlix, ABD, and tape. Mepilex to the right upper thigh wound and Hydrogel Mepilex to the left heel and Mepilex to the right heel, offload. This is a non-healable wound due to multiple comorbid conditions and unavoidable risk factors. MD BROCK Whittaker/CHIDI /[id number]
[2020-07-18] MEDS: NOREPINEPHRINE 8 MG/D5W 250 ML 250 ML IV SCH (16:50)
[2020-07-18] MEDS: OLANZAPINE 5 MG TAB PO SCH (21:58)
[2020-07-18] MEDS: ATORVASTATIN 40 MG TAB PO SCH (21:58)
[2020-07-19] VITALS (41 sets, daily range): BP systolic 76–137; BP diastolic 36–98
[2020-07-19 06:14] LABS: BASOPHILS % 0.3 % (0.0-1.0); EOSINOPHILS # (AUTO) 0.3 (0.0-0.4); EOSINOPHILS % 2.6 % (0.0-6.0); HEMOGLOBIN 7.4 g/dL (12.0-16.0); LYMPHOCYTES # (AUTO) 1.5 (1.0-3.2); LYMPHOCYTES % 15.3 % (18.0-39.1); MEAN CORPUSCULAR HEMOGLOBIN 29.2 pg (28-32); MEAN CORPUSCULAR HGB CONC 30.8 g/dL (31-35); MEAN CORPUSCULAR VOLUME 94.9 fL (81-99); MONOCYTES # (AUTO) 0.8 (0.2-0.8); MONOCYTES % 8.4 % (4.4-11.3); NEUTROPHILS % 72.8 % (38.7-80.0); PLATELET COUNT 59 x10e3/uL (140-360); RED BLOOD COUNT 2.53 x10e6/uL (3.6-5.1); RED CELL DISTRIBUTION WIDTH 18.3 % (11.7-14.4)
[2020-07-19 06:37] LABS: ALBUMIN 2.1 g/dL (3.5-5.0); ALBUMIN/GLOBULIN RATIO 0.5 (0.8-2.0); ANION GAP 14.1 mmol/L (8-16); CALCIUM 8.4 mg/dL (8.4-10.2); CREATININE, SERUM 1.2 mg/dL (0.57-1.11); POTASSIUM 4.1 mmol/L (3.5-5.1)
--- NOTE | 2020-07-19 07:02 | Diagnostic Imaging Report ---
EXAMINATION: CHEST SINGLE (PORTABLE) INDICATION: ^resp failure ^[id number] ^[id number] COMPARISON: 07/18/2020 FINDINGS: AP view TUBES and LINES: Stable tracheostomy tube and left-sided cardiac device. LUNGS: Lungs are well inflated. Pulmonary vascular congestion and mild interstitial edema. Improved retrocardiac opacification. PLEURA: No pneumothorax. Small left pleural effusion. HEART AND MEDIASTINUM: The cardiomediastinal silhouette is unremarkable. BONES AND SOFT TISSUES: No acute osseous lesion. Soft tissues are unremarkable. UPPER ABDOMEN: No free air under the diaphragm. IMPRESSION: Unchanged central vascular congestion and mild interstitial edema. Unchanged small left pleural effusion. Decreased retrocardiac opacification, representing improved atelectasis and/or pneumonia. Signed by: Dr. Ole Lombardo MD on 07/19/2020 6:59 AM
[2020-07-19] MEDS: MEROPENEM 500MG/ NS 50ML 50 ML IV SCH ×4 (07:50→17:14)
[2020-07-19] MEDS: TRAMADOL HCL 50 MG TAB PO PRN ×2 (07:53→20:35)
[2020-07-19] MEDS: SODIUM FERRIC GLUCONATE COMPLX 125 MG in SODIUM CHLORIDE 0.9% 100 ML 100 ML IV SCH (08:00)
[2020-07-19] MEDS: ESCITALOPRAM OXALATE 10 MG TAB PO SCH (08:00)
[2020-07-19] MEDS: PANTOPRAZOLE 40 MG 10ML VIAL IV SCH ×2 (08:00→16:25)
[2020-07-19] MEDS: ZINC SULFATE 220 MG CAP PO SCH (08:00)
[2020-07-19] MEDS: MULTIVITAMINS 5 ML LIQUID GT SCH (08:00)
[2020-07-19] MEDS: ASCORBIC ACID 500 MG TAB PO SCH ×2 (08:00→16:25)
[2020-07-19] MEDS: FOLIC ACID 1 MG TAB PO SCH (08:00)
[2020-07-19] MEDS: GABAPENTIN 100 MG CAP PO SCH ×2 (08:00→16:25)
[2020-07-19] MEDS: AMIODARONE HCL 200 MG TAB PO SCH (08:00)
[2020-07-19 08:09] LABS: ANISOCYTOSIS SLIGHT; PLATELET ESTIMATE MODERATELY DECREASED; PLATELET MORPHOLOGY COMMENT NORMAL; RBC MORPHOLOGY COMMENT NORMAL
--- NOTE | 2020-07-19 08:23 | Diagnostic Imaging Report ---
EXAM: ABDOMEN-1VIEW (KUB) DATE: 07/19/2020 5:30 AM INDICATION: Constipation, ileus COMPARISON: None FINDINGS: Bowel gas pattern appears nonspecific but nonobstructive. No pathologically dilated loops of bowel are identified. No intraperitoneal free air is appreciated on this supine view examination. Degenerative changes noted of the visualized spine. No acute osseous abnormality is identified. Trace small left pleural effusion and bibasilar atelectasis noted. IMPRESSION: No acute radiographic abnormality identified within the abdomen. Signed by: Dr. Simeon Hinkle MD on 07/19/2020 8:20 AM
[2020-07-19] MEDS ORDERED: SODIUM HYPOCHLORITE 0.25% 480 ML SOLN IR ONE (09:00)
--- NOTE | 2020-07-19 09:36 | NUR ---
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 cct>35mins 10-15 falling Hb- monitor; improving plts; CXR worse; on lasix; use pressors as needed; continue nutrition; cont LWC. cct>35mins. 10-16 add sucralfate and ferrous sulfate; remains on pressors; manage in ICU. VIPUL IZQUIERDO MD, PHD.
--- NOTE | 2020-07-19 10:14 | Progress Note ---
DATE: SUBJECTIVE: The patient remains on Levophed at 5 mcg. She is still on PRVC mode of ventilation. She is awake and does respond. OBJECTIVE: VITAL SIGNS: Blood pressure is 127/41 and heart rate is 65. She is 100% on the PRVC mode of ventilation set at 18 with a tidal volume of 470 and a PEEP of 5. FiO2 is 40%. HEENT: Shows no facial swelling or erythema. LYMPHATIC: Shows no submandibular, cervical, or supraclavicular adenopathy. CARDIAC: Reveals regular rate and rhythm. Normal S1, S2. LUNGS: Auscultation of lungs reveals decreased breath sounds bilaterally. There is no wheezing. ABDOMEN: Soft, nontender. There is no rebound or guarding. EXTREMITIES: Shows no leg edema or calf tenderness. LABORATORY DATA: BUN to creatinine ratio is 38 to 1.2. Sodium was 147 and the total protein is 6.2. The albumin is 2.1. RADIOGRAPHIC DATA: Chest x-ray shows some venous congestion. IMPRESSION: 1. Pneumonia with sepsis and healthcare associated infection, present on admission. 2. Acute on chronic systolic congestive heart failure. 3. Anemia secondary to chronic blood loss. 4. Stage IV decubitus ulcer, present on admission. 5. Thrombocytopenia. 6. Moderate protein-calorie malnutrition. PLAN: 1. Continue current antibiotics. 2. Await culture results. 3. Continue tidal volume, current ventilation and ventilator settings. 4. Continue wound care. 5. Continue enteral feedings. 6. Begin midrinone and wean Levophed as tolerated. 7. Case discussed with Internal Medicine, nursing, Wound Care, Infectious Disease and Respiratory. Greater than 35 minutes in direct critical care time. MD PASCUAL Forde/CHIDI /[id number] DAVID
[2020-07-19] MEDS: SUCRALFATE 1 GM/10 ML SUSP NG SCH ×3 (10:31→20:29)
[2020-07-19] MEDS: MIDODRINE HCL 5 MG TABLET PO SCH ×2 (11:40→16:25)
[2020-07-19] MEDS: NOREPINEPHRINE 8 MG/D5W 250 ML 250 ML IV SCH (17:14)
--- NOTE | 2020-07-19 18:34 | NUR ---
Patient having watery loose stools throughout shift. Dr. Brina hobbs informed, orders for rectal tube and vancomycin. Midodrine started, patient was able to be weaned from 4 mg/min of levophed to 1 mg/min.
[2020-07-19] MEDS: ATORVASTATIN 40 MG TAB PO SCH (20:29)
[2020-07-19] MEDS: OLANZAPINE 5 MG TAB PO SCH (20:31)
[2020-07-19] MEDS: ACETAMINOPHEN 325 MG/10 ML UDC NG PRN (20:34)
[2020-07-20] VITALS (30 sets, daily range): BP systolic 71–119; BP diastolic 39–93
[2020-07-20] MEDS: MEROPENEM 500MG/ NS 50ML 50 ML IV SCH ×5 (00:10→23:54)
[2020-07-20] MEDS: VANCOMYCIN 250MG/5ML ORAL SOLN PO SCH ×5 (00:11→23:54)
[2020-07-20 04:20] LABS: BASOPHILS % 0.3 % (0.0-1.0); EOSINOPHILS # (AUTO) 0.3 (0.0-0.4); EOSINOPHILS % 3.2 % (0.0-6.0); HEMATOCRIT 24.8 % (34.2-44.1); HEMOGLOBIN 7.5 g/dL (12.0-16.0); LYMPHOCYTES # (AUTO) 1.6 (1.0-3.2); LYMPHOCYTES % 16.5 % (18.0-39.1); MEAN CORPUSCULAR HEMOGLOBIN 28.6 pg (28-32); MEAN CORPUSCULAR HGB CONC 30.2 g/dL (31-35); MEAN CORPUSCULAR VOLUME 94.7 fL (81-99); MONOCYTES # (AUTO) 0.7 (0.2-0.8); MONOCYTES % 7.2 % (4.4-11.3); NEUTROPHILS % 72.2 % (38.7-80.0); PLATELET COUNT 83 x10e3/uL (140-360); RED BLOOD COUNT 2.62 x10e6/uL (3.6-5.1); RED CELL DISTRIBUTION WIDTH 18.5 % (11.7-14.4)
[2020-07-20 04:35] LABS: ALANINE AMINOTRANSFERASE 17 IU/L (0-55); ALBUMIN/GLOBULIN RATIO 0.5 (0.8-2.0); ALKALINE PHOSPHATASE 210 IU/L (40-150); ANION GAP 13.3 mmol/L (8-16); BLOOD UREA NITROGEN 51 mg/dL (7-26); BUN/CREATININE RATIO 48 (6-25); CALCIUM 8.3 mg/dL (8.4-10.2); CARBON DIOXIDE 23 mmol/L (22-29); CHLORIDE 117 mmol/L (98-107); CREATININE, SERUM 1.07 mg/dL (0.57-1.11); EST GLOMERULAR FILTRATION RATE > 60 ML/MIN (60-); GLUCOSE 125 mg/dL (74-118); POTASSIUM 4.3 mmol/L (3.5-5.1); SODIUM 149 mmol/L (136-145)
--- NOTE | 2020-07-20 05:38 | NUR ---
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 cct>35mins 10-15 falling Hb- monitor; improving plts; CXR worse; on lasix; use pressors as needed; continue nutrition; cont LWC. cct>35mins. 10-16 add sucralfate and ferrous sulfate; remains on pressors; manage in ICU. 10-17 GNR in sputum; hypernatremia- increase free water. VIPUL IZQUIERDO MD, PHD.
--- NOTE | 2020-07-20 06:04 | Diagnostic Imaging Report ---
EXAMINATION: CHEST SINGLE (PORTABLE) INDICATION: ^resp failure COMPARISON: 07/19/2020 FINDINGS: AP view TUBES and LINES: Stable tracheostomy tube and left chest wall cardiac device. LUNGS: Lungs are well inflated. Increased perihilar opacification. Increased left basilar opacification. PLEURA: No pneumothorax. HEART AND MEDIASTINUM: Obscured cardiac silhouette. Aorta is calcified and tortuous. BONES AND SOFT TISSUES: No acute osseous lesion. Soft tissues are unremarkable. UPPER ABDOMEN: No free air under the diaphragm. IMPRESSION: Increased perihilar opacification, representing atelectasis and/or pneumonia. Increased left basilar opacification with obscuration of left hemidiaphragm on current exam, representing increased left pleural effusion/atelectasis. Signed by: Dr. Ole Lombardo MD on 07/20/2020 6:01 AM
[2020-07-20] MEDS: MIDODRINE HCL 5 MG TABLET PO SCH ×5 (07:52→23:54)
[2020-07-20] MEDS: SUCRALFATE 1 GM/10 ML SUSP NG SCH ×4 (07:52→20:36)
[2020-07-20] MEDS: GABAPENTIN 100 MG CAP PO SCH ×3 (07:57→20:36)
[2020-07-20] MEDS: AMIODARONE HCL 200 MG TAB PO SCH (08:00)
[2020-07-20] MEDS: MULTIVITAMINS 5 ML LIQUID GT SCH (08:00)
[2020-07-20] MEDS: PANTOPRAZOLE 40 MG 10ML VIAL IV SCH ×2 (08:00→16:27)
[2020-07-20] MEDS: ZINC SULFATE 220 MG CAP PO SCH (08:01)
[2020-07-20] MEDS: ESCITALOPRAM OXALATE 10 MG TAB PO SCH (08:01)
[2020-07-20] MEDS: ASCORBIC ACID 500 MG TAB PO SCH ×2 (08:01→16:27)
[2020-07-20] MEDS: FOLIC ACID 1 MG TAB PO SCH (08:01)
[2020-07-20] MEDS ORDERED: ACETAMINOPHEN 325 MG TAB PO PRN (09:00)
[2020-07-20] MEDS: TRAMADOL HCL 50 MG TAB PO PRN (09:00)
[2020-07-20] MEDS: SODIUM FERRIC GLUCONATE COMPLX 125 MG in SODIUM CHLORIDE 0.9% 100 ML 100 ML IV SCH (09:18)
--- NOTE | 2020-07-20 14:04 | Progress Note ---
DATE: SUBJECTIVE: The patient is still on mechanical ventilation. She is still requiring low-dose Levophed. PHYSICAL EXAMINATION: VITAL SIGNS: Blood pressure is 106/43, saturation is 100%. She is currently on a PRVC mode of ventilation. Her pulse is 70. HEENT: No facial swelling or erythema. LYMPHATIC: No submandibular, cervical, or supraclavicular adenopathy. CARDIAC: Regular rate and rhythm with normal S1 and S2. LUNGS: Auscultation of lungs reveals decreased breath sounds at the bases. There is no wheezing. ABDOMEN: Soft, nontender. There is no rebound or guarding. EXTREMITIES: No leg edema or calf tenderness. There is no cyanosis or clubbing. SKIN: No rashes. NEUROLOGICAL: No focal abnormalities. LABORATORY DATA: BUN to creatinine ratio is 51 to 1.07 and sodium is 149. The albumin is 2.0, hemoglobin is 7.5, and the platelet count is 83,000. RADIOGRAPHIC DATA: There are bilateral pulmonary infiltrates. IMPRESSION: 1. Providencia pneumonia with septic shock present on admission. 2. Acute on chronic systolic congestive heart failure. 3. Anemia secondary to chronic blood loss. 4. Stage IV decubitus ulcer, present on admission. 5. Thrombocytopenia. 6. Antibiotic associated diarrhea. 7. Moderate protein-calorie malnutrition. PLAN: 1. Continue current antibiotics. 2. Await culture results. 3. Continue current ventilator settings. 4. Continue wound care. 5. Continue enteral feedings. 6. Continue Milrinone and wean Levophed. 7. Increase free water through feeding tube. Greater than 35 minutes in direct critical care time. Nixon White MD [facility] /[id number]
[2020-07-20] MEDS: HYDROCODONE/APAP 10MG-325MG TAB PO PRN (14:18)
[2020-07-20] MEDS: NOREPINEPHRINE 8 MG/D5W 250 ML 250 ML IV SCH (16:28)
[2020-07-20] MEDS: ATORVASTATIN 40 MG TAB PO SCH (20:36)
[2020-07-20] MEDS: OLANZAPINE 5 MG TAB PO SCH (20:36)
[2020-07-21] VITALS (31 sets, daily range): BP systolic 93–128; BP diastolic 39–67
[2020-07-21 05:34] LABS: BASOPHILS # (AUTO) 0.1 (0.0-0.1); BASOPHILS % 0.5 % (0.0-1.0); EOSINOPHILS # (AUTO) 0.4 (0.0-0.4); EOSINOPHILS % 3.5 % (0.0-6.0); HEMATOCRIT 23.6 % (34.2-44.1); HEMOGLOBIN 7.1 g/dL (12.0-16.0); LYMPHOCYTES # (AUTO) 1.7 (1.0-3.2); LYMPHOCYTES % 15.9 % (18.0-39.1); MEAN CORPUSCULAR HEMOGLOBIN 29.6 pg (28-32); MEAN CORPUSCULAR HGB CONC 30.1 g/dL (31-35); MEAN CORPUSCULAR VOLUME 98.3 fL (81-99); MONOCYTES # (AUTO) 0.6 (0.2-0.8); MONOCYTES % 5.9 % (4.4-11.3); NEUTROPHILS # (AUTO) 7.9 (2.1-6.9); NEUTROPHILS % 73.7 % (38.7-80.0); PLATELET COUNT 98 x10e3/uL (140-360); RED CELL DISTRIBUTION WIDTH 18.7 % (11.7-14.4)
[2020-07-21] MEDS: TRAMADOL HCL 50 MG TAB PO PRN ×2 (05:41→20:06)
[2020-07-21] MEDS: MIDODRINE HCL 5 MG TABLET PO SCH ×4 (05:46→23:43)
[2020-07-21] MEDS: MEROPENEM 500MG/ NS 50ML 50 ML IV SCH ×4 (05:46→23:43)
[2020-07-21] MEDS: VANCOMYCIN 250MG/5ML ORAL SOLN PO SCH ×4 (05:47→23:43)
[2020-07-21 06:08] LABS: ALANINE AMINOTRANSFERASE 22 IU/L (0-55); ALBUMIN 1.9 g/dL (3.5-5.0); ALBUMIN/GLOBULIN RATIO 0.4 (0.8-2.0); ALKALINE PHOSPHATASE 186 IU/L (40-150); ANION GAP 11.4 mmol/L (8-16); BLOOD UREA NITROGEN 50 mg/dL (7-26); BUN/CREATININE RATIO 53 (6-25); CALCIUM 8.5 mg/dL (8.4-10.2); CARBON DIOXIDE 25 mmol/L (22-29); CHLORIDE 119 mmol/L (98-107); CREATININE, SERUM 0.94 mg/dL (0.57-1.11); EST GLOMERULAR FILTRATION RATE > 60 ML/MIN (60-); GLUCOSE 82 mg/dL (74-118); POTASSIUM 4.4 mmol/L (3.5-5.1); SODIUM 151 mmol/L (136-145)
--- NOTE | 2020-07-21 06:50 | Diagnostic Imaging Report ---
EXAMINATION: CHEST SINGLE (PORTABLE) INDICATION: ^resp failure ^[id number] ^[id number] COMPARISON: 07/20/2020 FINDINGS: AP view TUBES and LINES: Stable tracheostomy tube and left chest wall cardiac device. Stable left PICC. LUNGS: Lungs are well inflated. Decreased retrocardiac/left basilar and perihilar opacities. Unchanged mild interstitial edema. PLEURA: No pneumothorax. HEART AND MEDIASTINUM: The cardiomediastinal silhouette is unremarkable. BONES AND SOFT TISSUES: No acute osseous lesion. Soft tissues are unremarkable. UPPER ABDOMEN: No free air under the diaphragm. IMPRESSION: Slightly decreased retrocardiac and perihilar opacities, representing improved left pleural effusion, atelectasis, and/or pneumonia. Mild interstitial edema. Signed by: Dr. Ole Lombardo MD on 07/21/2020 6:47 AM
[2020-07-21] MEDS: ESCITALOPRAM OXALATE 10 MG TAB PO SCH (08:07)
[2020-07-21] MEDS: FOLIC ACID 1 MG TAB PO SCH (08:07)
[2020-07-21] MEDS: ZINC SULFATE 220 MG CAP PO SCH (08:07)
[2020-07-21] MEDS: FERROUS SULFATE 325 MG TAB PO SCH ×2 (08:07→17:46)
[2020-07-21] MEDS: ASCORBIC ACID 500 MG TAB PO SCH ×2 (08:07→17:46)
[2020-07-21] MEDS: GABAPENTIN 100 MG CAP PO SCH ×3 (08:07→20:12)
[2020-07-21] MEDS: PANTOPRAZOLE 40 MG 10ML VIAL IV SCH ×2 (08:07→17:46)
[2020-07-21] MEDS: AMIODARONE HCL 200 MG TAB PO SCH (08:07)
[2020-07-21] MEDS: SUCRALFATE 1 GM/10 ML SUSP NG SCH ×4 (08:07→20:13)
[2020-07-21] MEDS: HYDROCODONE/APAP 10MG-325MG TAB PO PRN ×2 (08:28→23:43)
[2020-07-21] MEDS ORDERED: ACETAMINOPHEN 325 MG TAB PO ONE (09:49)
[2020-07-21] MEDS ORDERED: FUROSEMIDE INJ 10 MG/ML 2 ML VIAL IV ONE (10:00)
[2020-07-21] MEDS ORDERED: SODIUM CHLORIDE 0.9% 250ML 250 ML IV ONE (10:00)
--- NOTE | 2020-07-21 11:42 | Progress Note ---
DATE: Pulmonary Critical Care Progress Note SUBJECTIVE: The patient is growing a resistant Providencia and resistant Pseudomonas from the sputum. She has diarrhea. Blood cultures also grown yeast. She has been weaned off Levophed. She is now on Milrinone. PHYSICAL EXAMINATION: VITAL SIGNS: Blood pressure is 128/55 and saturation is 100%. She is on a PRVC mode of ventilation and FiO2 of 40%. Her pulse is 68 and respiratory rate is 18. HEENT: Shows no facial swelling or erythema. LYMPHATIC: Shows no submandibular, cervical, or supraclavicular adenopathy. There is tracheostomy site. The site is clean. CARDIAC: Reveals regular rate and rhythm. Normal S1, S2. LUNGS: Auscultation of lungs revealed decreased breath sounds at the bases. There is no wheezing. ABDOMEN: Soft, nontender. There is no rebound or guarding. There is a PEG tube in place. EXTREMITIES: There is no leg edema. She also has a stage IV sacral decubitus wound as well as decubitus ulcers on her heels. LABORATORY DATA: White blood cell count is 10.69, hemoglobin is 7.1, and platelet count is 98. The BUN to creatinine ratio is 50 to 0.94 and the sodium is 151. Other electrolytes within normal limits and the total protein is 6.2 and albumin is 1.9. RADIOGRAPHIC DATA: Chest x-ray shows slightly decreased retrocardiac infiltrate. IMPRESSION: 1. Pneumonia with septic shock secondary to Pseudomonas and Providencia. 2. [id number] systolic congestive heart failure. 3. Fungemia with positive blood culture. 4. Anemia secondary to chronic blood loss. 5. Stage IV decubitus ulcer, present on admission. 6. Thrombocytopenia. 7. Antibiotic-associated diarrhea. 8. Moderate protein-calorie malnutrition. PLAN: 1. Continue current ventilator settings. 2. The patient received 1 unit of packed red blood cells. 3. Continue enteral feedings. 4. Begin micafungin. 5. Begin nebulized colistin along with continued meropenem. 6. Continue free water through feeding tube. 7. Continue enteral feedings. 8. Continue wound care. Case discussed with nursing, Respiratory, Internal Medicine, and Infectious Disease. Greater than 35 minutes in direct critical care time. Nixon White MD [facility]/ANNAL /[id number]
[2020-07-21] MEDS: MULTIVITAMINS 5 ML LIQUID GT SCH (12:03)
--- NOTE | 2020-07-21 14:08 | NUR ---
Picc line is in SVC per verbal report from Radiologist Dr Bejarano. Picc is ok to use
--- NOTE | 2020-07-21 14:18 | Diagnostic Imaging Report ---
EXAMINATION: CHEST XRAY LINE PLACEMENT INDICATION: RIGHT SIDED PICC PLACEMENT COMPARISON: Chest radiograph 07/21/2020. FINDINGS: AP view TUBES and LINES: Stable tracheostomy tube and left chest wall AICD. Interval placement of right arm PICC which terminates in the mid SVC. Unchanged left arm PICC which terminates in the lower SVC. LUNGS: Lungs are well inflated. Unchanged mild interstitial opacities. Persistent left retrocardiac opacity. Patchy bibasilar opacities. PLEURA: Unchanged small left pleural effusion. No pneumothorax. HEART AND MEDIASTINUM: The cardiomediastinal silhouette is unremarkable. BONES AND SOFT TISSUES: No acute osseous lesion. Soft tissues are unremarkable. UPPER ABDOMEN: No free air under the diaphragm. IMPRESSION: Interval placement of right arm PICC which terminates in the SVC. No evidence of pneumothorax. Other lines and tubes as above. Persistent mild pulmonary interstitial edema, small left pleural effusion, and bibasilar opacities, which may represent atelectasis or infection. Signed by: Dr. Bindu Bejarano MD on 07/21/2020 2:15 PM
[2020-07-21] MEDS ORDERED: SODIUM CHLORIDE 0.9% 250ML 250 ML ONE (14:33)
[2020-07-21] MEDS: MICAFUNGIN SODIUM 100 ML IV SCH (15:41)
[2020-07-21] MEDS ORDERED: FUROSEMIDE INJ 10 MG/ML 4 ML VIAL ONE (16:58)
[2020-07-21] MEDS: COLISTIMETHATE SODIUM 150 MG VIAL INH SCH ×2 (17:25→19:15)
--- NOTE | 2020-07-21 18:33 | NUR ---
PICC line to left arm discontinued per orders and new PICC line to right arm placed per protocol. Pt's gave phone consent per protocol with 2 witnesses and rationale for change to picc line explained to Mr. Burrell. Picc line nurse to bedside at approx. 1400 and new line placed without difficulty. Xray confirmed placement. Left arm PICC discontinued. Patient tolerated well. Addendum: 07/21/20 at 1835 by Aure Tena RN Amended: Links added.
[2020-07-21] MEDS: OLANZAPINE 5 MG TAB PO SCH (20:13)
[2020-07-21] MEDS: ATORVASTATIN 40 MG TAB PO SCH (20:13)
[2020-07-22] VITALS (18 sets, daily range): BP systolic 99–141; BP diastolic 41–51
[2020-07-22] MEDS ORDERED: DIPHENOXYLATE/ATROPINE TAB PO ONE (02:00)
[2020-07-22] MEDS: TRAMADOL HCL 50 MG TAB PO PRN ×2 (03:11→23:40)
[2020-07-22] MEDS: VANCOMYCIN 250MG/5ML ORAL SOLN PO SCH ×4 (05:38→23:40)
[2020-07-22] MEDS: MEROPENEM 500MG/ NS 50ML 50 ML IV SCH (05:38)
[2020-07-22] MEDS: MIDODRINE HCL 5 MG TABLET PO SCH ×4 (05:38→23:40)
[2020-07-22 06:08] LABS: BASOPHILS # (AUTO) 0.1 (0.0-0.1); BASOPHILS % 0.4 % (0.0-1.0); EOSINOPHILS # (AUTO) 0.3 (0.0-0.4); EOSINOPHILS % 2.1 % (0.0-6.0); HEMOGLOBIN 8.3 g/dL (12.0-16.0); LYMPHOCYTES # (AUTO) 1.8 (1.0-3.2); LYMPHOCYTES % 12.8 % (18.0-39.1); MEAN CORPUSCULAR HEMOGLOBIN 28.4 pg (28-32); MEAN CORPUSCULAR HGB CONC 29.6 g/dL (31-35); MEAN CORPUSCULAR VOLUME 95.9 fL (81-99); MONOCYTES # (AUTO) 0.5 (0.2-0.8); MONOCYTES % 3.2 % (4.4-11.3); NEUTROPHILS # (AUTO) 11.6 (2.1-6.9); NEUTROPHILS % 80.9 % (38.7-80.0); PLATELET COUNT 116 x10e3/uL (140-360); RED BLOOD COUNT 2.92 x10e6/uL (3.6-5.1); RED CELL DISTRIBUTION WIDTH 18.7 % (11.7-14.4)
--- NOTE | 2020-07-22 06:10 | NUR ---
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 cct>35mins 10-15 falling Hb- monitor; improving plts; CXR worse; on lasix; use pressors as needed; continue nutrition; cont LWC. cct>35mins. 10-16 add sucralfate and ferrous sulfate; remains on pressors; manage in ICU. 10-17 GNR in sputum; hypernatremia- increase free water. 10-18 Providentia stuartii and Pseudomonas PNA, and Fungemia leading to septic shock; Now off pressors; change lines. 10-19 labs pending VIPUL IZQUIERDO MD, PHD.
[2020-07-22 06:16] LABS: ALANINE AMINOTRANSFERASE 27 IU/L (0-55); ALBUMIN 1.9 g/dL (3.5-5.0); ALBUMIN/GLOBULIN RATIO 0.4 (0.8-2.0); ALKALINE PHOSPHATASE 182 IU/L (40-150); ANION GAP 10.3 mmol/L (8-16); BLOOD UREA NITROGEN 46 mg/dL (7-26); BUN/CREATININE RATIO 56 (6-25); CALCIUM 8.4 mg/dL (8.4-10.2); CARBON DIOXIDE 25 mmol/L (22-29); CHLORIDE 116 mmol/L (98-107); CREATININE, SERUM 0.82 mg/dL (0.57-1.11); EST GLOMERULAR FILTRATION RATE > 60 ML/MIN (60-); GLUCOSE 80 mg/dL (74-118); POTASSIUM 4.3 mmol/L (3.5-5.1); SODIUM 147 mmol/L (136-145)
--- NOTE | 2020-07-22 06:43 | NUR ---
Pt remains off Levophed for over 24 hours, previously was only on 1 mcg/min. Midodrine 10 mg q6hr continues. MAP > 60 goal. Vent 40% FiO2 without changes. Diarrhea continues with flexiseal in place. Lomotil one time order per Dr Hu given last night. Lubin with light amish urine ~30 ml/hr. [place] and Tramadol given for generalized discomfort during the night, see eMAR. Labs pending. Plan: transfer back to [facility] today.
[2020-07-22] MEDS: COLISTIMETHATE SODIUM 150 MG VIAL INH SCH ×2 (07:15→20:15)
--- NOTE | 2020-07-22 08:36 | Diagnostic Imaging Report ---
TECHNIQUE: Frontal view of the chest. INDICATION: ^resp failure ^20200722 ^3810 COMPARISON: Prior day. DISCUSSION: Limited evaluation due to portable technique. Lines and hardware: Stable. Heart and mediastinum: Stable. Lungs and pleura: Increased interstitial airspace opacities most prominent at the left lung base. Question trace left effusion. Negative for large pneumothorax. Soft tissues and bones: No acute abnormality. IMPRESSION: Interval worsening of bilateral patchy airspace opacities, most prominent at the left lung base with probable small left pleural effusion. Signed by: Mike Jain MD on 07/22/2020 8:33 AM
[2020-07-22] MEDS: SUCRALFATE 1 GM/10 ML SUSP NG SCH ×4 (09:00→21:41)
[2020-07-22 09:41] LABS: PLATELET ESTIMATE MODERATELY DECREASED; PLATELET MORPHOLOGY COMMENT NORMAL
[2020-07-22] MEDS: ESCITALOPRAM OXALATE 10 MG TAB PO SCH (11:00)
[2020-07-22] MEDS: FOLIC ACID 1 MG TAB PO SCH (11:00)
[2020-07-22] MEDS: ZINC SULFATE 220 MG CAP PO SCH (11:00)
[2020-07-22] MEDS: PANTOPRAZOLE 40 MG 10ML VIAL IV SCH ×2 (11:00→17:57)
[2020-07-22] MEDS: AMIODARONE HCL 200 MG TAB PO SCH (11:00)
[2020-07-22] MEDS: MULTIVITAMINS 5 ML LIQUID GT SCH (11:00)
[2020-07-22] MEDS: GABAPENTIN 100 MG CAP PO SCH ×3 (11:00→21:41)
[2020-07-22] MEDS: FERROUS SULFATE 325 MG TAB PO SCH ×2 (11:00→17:57)
[2020-07-22] MEDS: ASCORBIC ACID 500 MG TAB PO SCH ×2 (11:00→17:57)
[2020-07-22] MEDS: MICAFUNGIN SODIUM 100 ML IV SCH (11:03)
--- NOTE | 2020-07-22 12:47 | Progress Note ---
DATE: Pulmonary Critical Care Progress Note SUBJECTIVE: The patient had her PICC line changed yesterday. She was started on micofungin for fungal infection. She was also started on Cholestin through a nebulizer in addition to imipenem. The patient remains on mechanical ventilation. She is off Levophed. PHYSICAL EXAMINATION: VITAL SIGNS: Blood pressure is 104/45, saturation is 100%. She is currently on a PRVC mode of ventilation at a rate of 18 with of PEEP of 5 and tidal volume of 470. FiO2 is 40%. HEENT: Shows no facial swelling or erythema. She has a tracheostomy in good position. CARDIAC: Reveals regular rate and rhythm with normal S1 and S2. LUNGS: Auscultation of lungs shows decreased breath sounds at the bases. There is no wheezing. ABDOMEN: Soft and nontender. There is no rebound or guarding. There is a large sacral decubitus ulcer. There are some heel ulcers. LABORATORY DATA: White blood cell count is 14.3, hemoglobin is 8.3 and the platelet count is 116. The BUN to creatinine ratio is 46 to 0.82 and the sodium is 147. Albumin is 1.9. RADIOGRAPHIC DATA: Chest x-ray shows worsening bilateral patchy infiltrates. IMPRESSION: 1. Healthcare associated pneumonia secondary to Providencia and Pseudomonas present on admission with septic shock. 2. Fungemia. 3. Stage IV sacral decubitus ulcer, present on admission. 4. Thrombocytopenia. 5. Anemia secondary to chronic blood loss. 6. Antibiotic associated diarrhea. 7. Moderate protein-calorie malnutrition. 8. Hyponatremia. PLAN: 1. Continue current antifungal and antibacterial regimen. 2. Continue wound care. 3. Continue enteral feedings. 4. Continue free water. 5. The patient being evaluated for LTAC. Greater than 35 minutes in direct critical care time. Nixon White MD LM/MODL /[id number]
--- NOTE | 2020-07-22 16:49 | NUR ---
Nutrition Intervention Note RD Recommendation(s) for Physician: -Continue Vital AF 1.2 @ goal rate of 60 mL/hr (provides 1728 kcal, 108 g protein, and 1168 mL water) -Continue Michael BID to promote wound healing -Water/fluid management per MD Plan of Care: RD following, monitoring for tolerance and adequacy, tube feed recommendation Nutrition reason for involvement: follow up RD Assessment 07/22: Follow up. Pt remains on mechanical ventilation. Pt is receiving tube feeding at 60 mL/hr and Michael BID per RN. Free water was increased to due to elevated Na. RN also mentioned pt is having diarrhea. Current recommendations remain appropriate. Will continue to monitor. (07/17) Pt is a 70 year old female admitted with chronic anemia. Pt has chronic respiratory failure is vent dependent with a PEG tube. Unable to obtain nutrition history from pt. It is noted that pt has a stage 2 pressure ulcer to left and right buttocks and stage 4 sacral pressure ulcer per wound care note. Tube feedings were started. Recommendations provided. RD to manage TF order per Dr. White. Will continue to monitor. Principal Problems/Diagnoses: chronic anemia PMH: Chronic anemia, Respiratory failure, Chronic neurological disease. GI: non-tender/soft abdomen, liquid stools Skin: stage 2 pressure ulcer to left and right buttocks and stage 4 sacral pressure ulcer per wound care note (07/16) Labs: (07/22) Na 147, K 4.3, BUN 46, Cr 0.82, Glu 80, Ca 8.4, AST 43 (07/17) Na 140, K 3.8, BUN 55, Cr 1.44, Glu 227, Ca 7.8 Meds: metoprolol, heparin, antibiotics, mannitol Ht: 60 in Wt:121.25 lbs (07/21) 134.19 lbs (07/17) Suspect possible weight error, please reweigh pt BMI: 26.2 kg/m2 using wt of 134.19 lbs (admit weight) IBW: 100 lbs Malnutrition Evaluation (07/22/20) The patient does not meet criteria for a specified degree of malnutrition at this time. Will re-evaluate at follow-up as appropriate. Energy intake: meeting needs with current tube feed rate Weight loss: unable to assess, varied weights in chart Fat loss: unable to evaluate Muscle loss: unable to evaluate Supporting Evidence: Fluid accumulation: no edema per MD note Functional Status: not assessed Nutrition Prescription (Diet Order): Vital AF 1.2 @ 60 mL/hr (provides 1728 kcal, 108 g protein), Michael BID (provides 180 kcal and 5 g protein) Estimated Nutritional Needs: 3175-6870 calories/day (25-30 kcal/kg CBW) using wt of 134.19 lbs (admit weight) 91-120 g protein/day (1.5-2 g pro/kg CBW) using wt of 134.19 lbs (admit weight) Diet Adequacy: Not meeting calorie needs, Not meeting protein needs Tolerance: Tolerating TF Diet Education Needs Assessment: Diet education not indicate, pt is intubated. . Nutrition Care Level: moderate Nutrition Diagnosis: Increased nutrient needs related to increased demand for protein and kcal as evidenced by pressure ulcers. Goal: Patient will meet 75-100% of estimated needs by follow up Progress: goal met Interventions: -Composition, Rate, Route Monitoring/Evaluation: -Total energy intake, Total protein intake, Formula/Solution, Weight change Signed: Stephanie Martinez RD, GEORGE Addendum: 07/26/20 at 1414 by Stephanie Martinez DIET Correction: Diet Adequacy: meeting calorie needs, meeting protein needs
[2020-07-22] MEDS: OLANZAPINE 5 MG TAB PO SCH (21:41)
[2020-07-22] MEDS: ATORVASTATIN 40 MG TAB PO SCH (21:41)
[2020-07-22] MEDS: HYDROCODONE/APAP 10MG-325MG TAB PO PRN (21:42)
[2020-07-23] VITALS (14 sets, daily range): BP systolic 108–144; BP diastolic 37–57
[2020-07-23 04:29] LABS: BASOPHILS % 0.3 % (0.0-1.0); EOSINOPHILS # (AUTO) 0.2 (0.0-0.4); EOSINOPHILS % 1.6 % (0.0-6.0); HEMATOCRIT 26.5 % (34.2-44.1); HEMOGLOBIN 7.8 g/dL (12.0-16.0); LYMPHOCYTES # (AUTO) 1.7 (1.0-3.2); LYMPHOCYTES % 12.9 % (18.0-39.1); MEAN CORPUSCULAR HEMOGLOBIN 28.1 pg (28-32); MEAN CORPUSCULAR HGB CONC 29.4 g/dL (31-35); MEAN CORPUSCULAR VOLUME 95.3 fL (81-99); MONOCYTES # (AUTO) 0.5 (0.2-0.8); MONOCYTES % 3.7 % (4.4-11.3); NEUTROPHILS # (AUTO) 10.9 (2.1-6.9); PLATELET COUNT 147 x10e3/uL (140-360); RED BLOOD COUNT 2.78 x10e6/uL (3.6-5.1); RED CELL DISTRIBUTION WIDTH 18.3 % (11.7-14.4)
[2020-07-23 04:47] LABS: ALANINE AMINOTRANSFERASE 21 IU/L (0-55); ALBUMIN 1.8 g/dL (3.5-5.0); ALBUMIN/GLOBULIN RATIO 0.4 (0.8-2.0); ALKALINE PHOSPHATASE 163 IU/L (40-150); ANION GAP 12.5 mmol/L (8-16); BLOOD UREA NITROGEN 41 mg/dL (7-26); BUN/CREATININE RATIO 51 (6-25); CALCIUM 8.4 mg/dL (8.4-10.2); CARBON DIOXIDE 23 mmol/L (22-29); CHLORIDE 114 mmol/L (98-107); EST GLOMERULAR FILTRATION RATE > 60 ML/MIN (60-); GLUCOSE 75 mg/dL (74-118); POTASSIUM 4.5 mmol/L (3.5-5.1); SODIUM 145 mmol/L (136-145)
[2020-07-23] MEDS: HYDROCODONE/APAP 10MG-325MG TAB PO PRN (05:52)
[2020-07-23] MEDS: VANCOMYCIN 250MG/5ML ORAL SOLN PO SCH ×4 (05:52→23:27)
[2020-07-23] MEDS: MIDODRINE HCL 5 MG TABLET PO SCH ×4 (05:52→23:27)
--- NOTE | 2020-07-23 06:11 | NUR ---
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 cct>35mins 10-15 falling Hb- monitor; improving plts; CXR worse; on lasix; use pressors as needed; continue nutrition; cont LWC. cct>35mins. 10-16 add sucralfate and ferrous sulfate; remains on pressors; manage in ICU. 10-17 GNR in sputum; hypernatremia- increase free water. 10-18 Providentia stuartii and Pseudomonas PNA, and Fungemia leading to septic shock; Now off pressors; change lines. 10-19 labs pending 10-20 stable; remains off pressors for 48 hrs. [facility] eval. VIPUL IZQUIERDO MD, PHD.
[2020-07-23] MEDS: COLISTIMETHATE SODIUM 150 MG VIAL INH SCH ×3 (07:10→19:47)
--- NOTE | 2020-07-23 08:28 | Diagnostic Imaging Report ---
TECHNIQUE: Frontal view of the chest. INDICATION: ^resp failure ^20200723 ^0526 COMPARISON: Prior day. IMPRESSION: Lines and hardware: Stable. Heart and mediastinum: Stable. Lungs and pleura: Stable pulmonary vascular congestion and patchy bibasilar airspace opacities. No pleural effusion. No pneumothorax. Soft tissues and bones: No acute abnormality. Signed by: Farhan Alberts MD on 07/23/2020 8:24 AM
[2020-07-23] MEDS: FERROUS SULFATE 325 MG TAB PO SCH ×2 (10:41→18:20)
[2020-07-23] MEDS: SUCRALFATE 1 GM/10 ML SUSP NG SCH ×4 (10:41→19:49)
[2020-07-23] MEDS: MULTIVITAMINS 5 ML LIQUID GT SCH (10:41)
[2020-07-23] MEDS: GABAPENTIN 100 MG CAP PO SCH ×3 (10:41→19:49)
[2020-07-23] MEDS: ESCITALOPRAM OXALATE 10 MG TAB PO SCH (10:41)
[2020-07-23] MEDS: AMIODARONE HCL 200 MG TAB PO SCH (10:41)
[2020-07-23] MEDS: FOLIC ACID 1 MG TAB PO SCH (10:41)
[2020-07-23] MEDS: ZINC SULFATE 220 MG CAP PO SCH (10:41)
[2020-07-23] MEDS: ASCORBIC ACID 500 MG TAB PO SCH ×2 (10:41→18:20)
[2020-07-23] MEDS: PANTOPRAZOLE 40 MG 10ML VIAL IV SCH ×2 (10:41→18:20)
--- NOTE | 2020-07-23 11:06 | Progress Note ---
DATE: SUBJECTIVE: The patient is off pressors. She remains on a PRVC mode of ventilation, but her FiO2 is only 30%. Her PEEP is 5. Her meropenem was stopped by Infectious Disease. She is still on Cholestin as well as well oral vancomycin and micafungin. PHYSICAL EXAMINATION: VITAL SIGNS: The blood pressure is 144/51, saturation is 100% and the pulse is 68. HEENT: No facial swelling or erythema. LYMPHATIC: No submandibular, cervical, or supraclavicular adenopathy. CARDIAC: Regular rate and rhythm with a normal S1, S2. There are no murmurs or rubs heard. LUNGS: Auscultation of lungs shows decreased breath sounds at the bases. There is no wheezing. ABDOMEN: Soft, nontender. There is no rebound or guarding. EXTREMITIES: No leg edema or calf tenderness. There is a large sacral decubitus wound. LABORATORY DATA: BUN to creatinine ratio is 41 to 0.8. Other electrolytes are within normal limits. Albumin is 1.8. Hemoglobin is 7.8 and the white blood cell count is 13.4. The platelet count is 147. IMPRESSION: 1. Healthcare-associated pneumonia secondary to Pseudomonas and Providencia with septic shock, present on admission. 2. Fungemia. 3. Sacral decubitus ulcer, stage IV, present on admission. 4. Thrombocytopenia. 5. Anemia secondary to chronic blood loss. 6. Moderate protein-calorie malnutrition. 7. Antibiotic associated diarrhea. PLAN: 1. Continue Cholestin, micafungin, and oral vancomycin. 2. Continue wound care. 3. Spontaneous breathing trial. 4. Continue enteral feedings. 5. Continue free water. 6. Discussed disposition with Dr. Kim and Case Management. Nixon White MD [facility]/MODL /[id number]
[2020-07-23] MEDS: MICAFUNGIN SODIUM 100 ML IV SCH (11:59)
[2020-07-23] MEDS: OLANZAPINE 5 MG TAB PO SCH (19:49)
[2020-07-23] MEDS: ATORVASTATIN 40 MG TAB PO SCH (19:49)
[2020-07-24] VITALS (25 sets, daily range): BP systolic 107–162; BP diastolic 42–69
[2020-07-24] MEDS: HYDROCODONE/APAP 10MG-325MG TAB PO PRN (03:24)
[2020-07-24] MEDS: MIDODRINE HCL 5 MG TABLET PO SCH ×4 (05:22→23:25)
[2020-07-24] MEDS: VANCOMYCIN 250MG/5ML ORAL SOLN PO SCH ×4 (05:22→23:25)
--- NOTE | 2020-07-24 06:17 | NUR ---
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 cct>35mins 10-15 falling Hb- monitor; improving plts; CXR worse; on lasix; use pressors as needed; continue nutrition; cont LWC. cct>35mins. 10-16 add sucralfate and ferrous sulfate; remains on pressors; manage in ICU. 10-17 GNR in sputum; hypernatremia- increase free water. 10-18 Providentia stuartii and Pseudomonas PNA, and Fungemia leading to septic shock; Now off pressors; change lines. 10-19 labs pending 10-20 stable; remains off pressors for 48 hrs. SNF eval. 10-21 Enterococcal Bacteremia; pt is on colistin. VIPUL IZQUIERDO MD, PHD.
[2020-07-24] MEDS: COLISTIMETHATE SODIUM 150 MG VIAL INH SCH ×2 (07:10→19:00)
[2020-07-24] MEDS: SUCRALFATE 1 GM/10 ML SUSP NG SCH ×4 (07:55→21:11)
[2020-07-24] MEDS: FERROUS SULFATE 325 MG TAB PO SCH ×2 (07:55→16:04)
[2020-07-24] MEDS: MULTIVITAMINS 5 ML LIQUID GT SCH (07:56)
[2020-07-24] MEDS: PANTOPRAZOLE 40 MG 10ML VIAL IV SCH ×2 (07:56→16:04)
[2020-07-24] MEDS: FOLIC ACID 1 MG TAB PO SCH (07:56)
[2020-07-24] MEDS: AMIODARONE HCL 200 MG TAB PO SCH (07:56)
[2020-07-24] MEDS: MICAFUNGIN SODIUM 100 ML IV SCH (07:57)
[2020-07-24] MEDS: ZINC SULFATE 220 MG CAP PO SCH (07:57)
[2020-07-24] MEDS: GABAPENTIN 100 MG CAP PO SCH ×3 (07:57→21:11)
[2020-07-24] MEDS: ASCORBIC ACID 500 MG TAB PO SCH ×2 (07:57→16:04)
[2020-07-24] MEDS: ESCITALOPRAM OXALATE 10 MG TAB PO SCH (07:59)
--- NOTE | 2020-07-24 09:42 | NUR ---
DR KRISHNAN ORDER PLACED PT ON ATC 40%.
--- NOTE | 2020-07-24 10:02 | Progress Note ---
DATE: SUBJECTIVE: This patient is currently receiving enteral feedings. She was on pressure support and CPAP yesterday for most of the day. She is awake. PHYSICAL EXAMINATION: VITAL SIGNS: The patient is afebrile. The blood pressure is 121/48, saturation is 98%. Her FiO2 is set at 40%. HEENT: No facial swelling or erythema. She has a tracheostomy. Site appears clean. CARDIAC: Regular rate and rhythm with normal S1, S2. LUNGS: Auscultation of lungs shows decreased breath sounds at bases. There is no wheezing. ABDOMEN: Soft, nontender. There is no rebound or guarding. There is a decubitus ulcer in the sacral area. EXTREMITIES: There is no leg edema. LABORATORY DATA: The BUN to creatinine ratio is 41 to 0.8. The other electrolytes are within normal limits. IMPRESSION: 1. Healthcare-associated pneumonia secondary to Pseudomonas and Providencia with septic shock, present on admission. 2. Fungemia. 3. Sacral decubitus ulcer, stage IV, present on admission. 4. Thrombocytopenia. 5. Anemia secondary to chronic blood loss. 6. Moderate protein-calorie malnutrition. 7. Antibiotic associated diarrhea. PLAN: 1. The patient will be placed on trach collar today. 2. Continue Colistin, micafungin, and oral vancomycin. 3. Continue wound care. 4. Continue enteral feedings. MD PASCUAL Forde/CHIDI /[id number]
--- NOTE | 2020-07-24 10:54 | NUR ---
SPOKE WITH THE REP FROM FACILITY, STATES DID NOT GET FAX YESTERDAY OF CLINICALS, RESENT AND GOT CONFIRMATION OF RECEIPT.
--- NOTE | 2020-07-24 14:08 | NUR ---
Spoke to Beatriz with admissions at [facility]. States they have received auth for pt. Good for 7 days. They cannot take pt back on Micafungin, but pt can return once she finishes abx course. Per nursing report, pt has 4 more days on Micafungin.
[2020-07-24] MEDS: OLANZAPINE 5 MG TAB PO SCH (21:11)
[2020-07-24] MEDS: ATORVASTATIN 40 MG TAB PO SCH (21:11)
[2020-07-25] VITALS (25 sets, daily range): BP systolic 95–153; BP diastolic 41–67
[2020-07-25] MEDS: HYDROCODONE/APAP 10MG-325MG TAB PO PRN ×2 (02:05→20:54)
[2020-07-25 04:52] LABS: BASOPHILS % 0.4 % (0.0-1.0); EOSINOPHILS # (AUTO) 0.3 (0.0-0.4); EOSINOPHILS % 3.6 % (0.0-6.0); HEMATOCRIT 23.6 % (34.2-44.1); LYMPHOCYTES # (AUTO) 1.6 (1.0-3.2); LYMPHOCYTES % 22.5 % (18.0-39.1); MEAN CORPUSCULAR HEMOGLOBIN 27.9 pg (28-32); MEAN CORPUSCULAR HGB CONC 29.2 g/dL (31-35); MEAN CORPUSCULAR VOLUME 95.5 fL (81-99); MONOCYTES # (AUTO) 0.4 (0.2-0.8); MONOCYTES % 5.2 % (4.4-11.3); NEUTROPHILS # (AUTO) 4.7 (2.1-6.9); PLATELET COUNT 190 x10e3/uL (140-360); RED BLOOD COUNT 2.47 x10e6/uL (3.6-5.1); RED CELL DISTRIBUTION WIDTH 17.3 % (11.7-14.4)
[2020-07-25 04:55] LABS: HEMOGLOBIN 6.9 g/dL (12.0-16.0)
[2020-07-25] MEDS: MIDODRINE HCL 5 MG TABLET PO SCH ×4 (05:13→23:40)
[2020-07-25] MEDS: VANCOMYCIN 250MG/5ML ORAL SOLN PO SCH ×4 (05:13→23:40)
[2020-07-25 05:14] LABS: ALANINE AMINOTRANSFERASE 18 IU/L (0-55); ALBUMIN 1.7 g/dL (3.5-5.0); ALBUMIN/GLOBULIN RATIO 0.4 (0.8-2.0); ALKALINE PHOSPHATASE 146 IU/L (40-150); ANION GAP 10.2 mmol/L (8-16); BLOOD UREA NITROGEN 26 mg/dL (7-26); BUN/CREATININE RATIO 38 (6-25); CALCIUM 8.3 mg/dL (8.4-10.2); CARBON DIOXIDE 24 mmol/L (22-29); CHLORIDE 111 mmol/L (98-107); CREATININE, SERUM 0.68 mg/dL (0.57-1.11); EST GLOMERULAR FILTRATION RATE > 60 ML/MIN (60-); GLUCOSE 89 mg/dL (74-118); POTASSIUM 4.2 mmol/L (3.5-5.1); SODIUM 141 mmol/L (136-145)
[2020-07-25] MEDS ORDERED: FUROSEMIDE INJ 10 MG/ML 2 ML VIAL IV PRN (05:45)
[2020-07-25] MEDS ORDERED: SODIUM CHLORIDE 0.9% 250ML 250 ML IV ONE (05:45)
[2020-07-25 06:53] LABS: ANISOCYTOSIS SLIGHT; EOSINOPHILS % (MANUAL) 3 % (0-7); HYPOCHROMASIA SLIGHT; LYMPHOCYTES % (MANUAL) 21 % (19-48); MONOCYTES % (MANUAL) 2 % (3.4-9.0); NEUTROPHILS % (MANUAL) 74 % (40-74)
[2020-07-25 06:54] LABS: PLATELET ESTIMATE ADEQUATE; PLATELET MORPHOLOGY COMMENT NORMAL; RBC MORPHOLOGY COMMENT NORMAL
[2020-07-25] MEDS: ZINC SULFATE 220 MG CAP PO SCH (08:07)
[2020-07-25] MEDS: ASCORBIC ACID 500 MG TAB PO SCH ×2 (08:07→16:00)
[2020-07-25] MEDS: AMIODARONE HCL 200 MG TAB PO SCH (08:07)
[2020-07-25] MEDS: CHOLESTYRAMINE 4 GM PACKET PO SCH ×4 (08:07→20:53)
[2020-07-25] MEDS: SUCRALFATE 1 GM/10 ML SUSP NG SCH ×4 (08:07→20:53)
[2020-07-25] MEDS: FERROUS SULFATE 325 MG TAB PO SCH ×2 (08:07→16:00)
[2020-07-25] MEDS: FOLIC ACID 1 MG TAB PO SCH (08:07)
[2020-07-25] MEDS: ESCITALOPRAM OXALATE 10 MG TAB PO SCH (08:07)
[2020-07-25] MEDS: MULTIVITAMINS 5 ML LIQUID GT SCH (08:07)
[2020-07-25] MEDS: PANTOPRAZOLE 40 MG 10ML VIAL IV SCH ×2 (08:07→16:00)
[2020-07-25] MEDS: GABAPENTIN 100 MG CAP PO SCH ×3 (08:07→20:53)
--- NOTE | 2020-07-25 08:21 | Diagnostic Imaging Report ---
TECHNIQUE: Frontal view of the chest. INDICATION: Respiratory failure COMPARISON: Prior day. DISCUSSION: Limited evaluation due to portable technique. Lines and hardware: Stable. Heart and mediastinum: Stable. Lungs and pleura: Interval worsening of pulmonary vascular congestion and patchy bibasilar airspace opacities. Negative for large effusion or pneumothorax. Soft tissues and bones: No acute abnormality. IMPRESSION: Interval worsening of patchy airspace opacities and pulmonary vascular congestion. Signed by: Mike Jain MD on 07/25/2020 8:18 AM
[2020-07-25] MEDS: COLISTIMETHATE SODIUM 150 MG VIAL INH SCH ×2 (08:40→22:40)
[2020-07-25] MEDS: MICAFUNGIN SODIUM 100 ML IV SCH (08:42)
[2020-07-25] MEDS: VANCOMYCIN 1GM/NS 250 ML 250 ML IV SCH (09:27)
--- NOTE | 2020-07-25 12:05 | Progress Note ---
DATE: SUBJECTIVE: The patient is receiving packed red blood cells today because of low hemoglobin. She remains on mechanical ventilation. PHYSICAL EXAMINATION: VITAL SIGNS: Blood pressure is 147/50, saturation is 100% and the pulse is 65. HEENT: Shows no facial swelling or erythema. LYMPHATIC: Shows no submandibular, cervical, or supraclavicular adenopathy. CARDIAC: Reveals regular rate and rhythm with normal S1, S2. LUNGS: Auscultation of lungs reveals rhonchorous breath sounds bilaterally. There is no wheezing. ABDOMEN: Soft and nontender. There is no rebound or guarding. EXTREMITIES: Shows no leg edema or calf tenderness. There is no cyanosis or clubbing. SKIN: Shows no rashes. LABORATORY DATA: Hemoglobin is 6.9, the white blood cell count is 6.92, and the platelet count is 190. The DIR-aj-lskrgcnxbx ratio is 26 to 0.63 and the albumin is 1.7. The electrolytes within normal limits. IMPRESSION: 1. Healthcare-associated pneumonia secondary to Pseudomonas and Providencia with septic shock, present on admission. 2. Fungemia. 3. Sacral decubitus ulcer, stage IV, present on admission. 4. Thrombocytopenia. 5. Anemia secondary to chronic blood loss. 6. Moderate protein-calorie malnutrition. 7. Antibiotic associated diarrhea. PLAN: 1. Continue micafungin. 2. Continue vancomycin orally as well as Colistin by nebulizer. 3. Continue wound care. 4. Enteral feedings. Nixon White MD LM/CHIDI /[id number]
[2020-07-25] MEDS: OLANZAPINE 5 MG TAB PO SCH (20:53)
[2020-07-25] MEDS: ATORVASTATIN 40 MG TAB PO SCH (20:53)
[2020-07-26] VITALS (17 sets, daily range): BP systolic 102–147; BP diastolic 48–60
[2020-07-26 05:25] LABS: BASOPHILS % 0.6 % (0.0-1.0); EOSINOPHILS # (AUTO) 0.3 (0.0-0.4); HEMATOCRIT 30.5 % (34.2-44.1); HEMOGLOBIN 9.6 g/dL (12.0-16.0); LYMPHOCYTES # (AUTO) 1.5 (1.0-3.2); LYMPHOCYTES % 22.6 % (18.0-39.1); MEAN CORPUSCULAR HEMOGLOBIN 28.6 pg (28-32); MEAN CORPUSCULAR HGB CONC 31.5 g/dL (31-35); MEAN CORPUSCULAR VOLUME 90.8 fL (81-99); MONOCYTES # (AUTO) 0.4 (0.2-0.8); MONOCYTES % 5.8 % (4.4-11.3); NEUTROPHILS # (AUTO) 4.4 (2.1-6.9); NEUTROPHILS % 65.7 % (38.7-80.0); PLATELET COUNT 236 x10e3/uL (140-360); RED BLOOD COUNT 3.36 x10e6/uL (3.6-5.1); RED CELL DISTRIBUTION WIDTH 19.3 % (11.7-14.4)
[2020-07-26 05:49] LABS: ANION GAP 11.5 mmol/L (8-16); BLOOD UREA NITROGEN 22 mg/dL (7-26); BUN/CREATININE RATIO 33 (6-25); CALCIUM 8.4 mg/dL (8.4-10.2); CARBON DIOXIDE 23 mmol/L (22-29); CHLORIDE 111 mmol/L (98-107); CREATININE, SERUM 0.67 mg/dL (0.57-1.11); EST GLOMERULAR FILTRATION RATE > 60 ML/MIN (60-); GLUCOSE 75 mg/dL (74-118); POTASSIUM 4.5 mmol/L (3.5-5.1); SODIUM 141 mmol/L (136-145)
[2020-07-26] MEDS: VANCOMYCIN 250MG/5ML ORAL SOLN PO SCH ×4 (05:53→23:52)
[2020-07-26] MEDS: MIDODRINE HCL 5 MG TABLET PO SCH ×4 (05:53→23:52)
--- NOTE | 2020-07-26 06:57 | NUR ---
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 cct>35mins 10-15 falling Hb- monitor; improving plts; CXR worse; on lasix; use pressors as needed; continue nutrition; cont LWC. cct>35mins. 10-16 add sucralfate and ferrous sulfate; remains on pressors; manage in ICU. 10-17 GNR in sputum; hypernatremia- increase free water. 10-18 Providentia stuartii and Pseudomonas PNA, and Fungemia leading to septic shock; Now off pressors; change lines. 10-19 labs pending 10-20 stable; remains off pressors for 48 hrs. SNF eval. 10-21 Enterococcal Bacteremia; pt is on colistin. 10-22 Worsened anemia- give blood. cont ppi BID; cont rectal tube; questran; LWC to stage 4 sacral ulcer 10- cont IV and PO vanco; colistin/micafungin; questran; vent support; VIPUL IZQUIERDO MD, PHD.
[2020-07-26] MEDS: COLISTIMETHATE SODIUM 150 MG VIAL INH SCH ×2 (07:20→19:30)
[2020-07-26] MEDS: HYDROCODONE/APAP 10MG-325MG TAB PO PRN ×3 (08:00→21:13)
[2020-07-26] MEDS: ASCORBIC ACID 500 MG TAB PO SCH ×2 (08:13→16:52)
[2020-07-26] MEDS: PANTOPRAZOLE 40 MG 10ML VIAL IV SCH ×2 (08:13→16:51)
[2020-07-26] MEDS: FOLIC ACID 1 MG TAB PO SCH (08:13)
[2020-07-26] MEDS: GABAPENTIN 100 MG CAP PO SCH ×3 (08:13→21:13)
[2020-07-26] MEDS: VANCOMYCIN 1GM/NS 250 ML 250 ML IV SCH (08:13)
[2020-07-26] MEDS: ESCITALOPRAM OXALATE 10 MG TAB PO SCH (08:13)
[2020-07-26] MEDS: AMIODARONE HCL 200 MG TAB PO SCH (08:13)
[2020-07-26] MEDS: ZINC SULFATE 220 MG CAP PO SCH (08:13)
[2020-07-26] MEDS: SUCRALFATE 1 GM/10 ML SUSP NG SCH ×4 (08:13→21:13)
[2020-07-26] MEDS: FERROUS SULFATE 325 MG TAB PO SCH ×2 (08:13→16:51)
[2020-07-26] MEDS: MULTIVITAMINS 5 ML LIQUID GT SCH (08:35)
--- NOTE | 2020-07-26 08:43 | NUR ---
[facility] FACILITY DISCHARGE INFORMATION CAN GO AFTER COMPLETION OF MEDICATION ON 07/27 PATIENT HAS BEEN ACCEPTED TO: NAME: [facility] ADDRESS: [id number] [place] [facility] ACCEPTING CUSTOMER ACQUISITION MANAGER: SAMI BELTRAN MD: TIMBO ROOM: 507 A NURSE CALL REPORT TO: [phone] IMM SIGNED AND OBTAINED (if applicable): IMM THE FOLLOWING DOCUMENTS MUST ACCOMPANY PATIENT FOR TRANSFER: COPIED CHART: PACKET TO NURSES STATION
--- NOTE | 2020-07-26 09:55 | Progress Note ---
DATE: SUBJECTIVE: The patient is afebrile. The patient is still on a mechanical ventilator. No fevers. PHYSICAL EXAMINATION: VITAL SIGNS: Blood pressure is 147/51, saturation is 99%. The patient is on a PRVC mode of ventilation. Pulse is 67. HEENT: Shows no facial swelling or erythema. There is tracheostomy site in good position. CARDIAC: Reveals regular rate and rhythm with normal S1, S2. LUNGS: Auscultation of lungs reveals rhonchorous breath sounds bilaterally. There is no wheezing. ABDOMEN: Soft, nontender. There is no rebound or guarding. EXTREMITIES: Shows no leg edema or calf tenderness. LABORATORY DATA: White blood cell count is 6.7, hemoglobin is 9.6, and the platelet count is 236. BUN to creatinine ratio is 22 to 0.67. The other electrolytes within normal limits. IMPRESSION: 1. Healthcare-associated pneumonia, secondary to Pseudomonas and Providencia with septic shock, present on admission. 2. Fungemia. 3. Sacral decubitus ulcer, stage IV, present on admission. 4. Thrombocytopenia. 5. Anemia, secondary to blood loss. 6. Moderate protein-calorie malnutrition. PLAN: 1. Continue micafungin. 2. Continue oral vancomycin as well as Colistin by nebulizer. 3. Continue wound care. 4. Enteral feedings. Nixon White MD [facility]/MODL /[id number]
[2020-07-26] MEDS: MICAFUNGIN SODIUM 100 ML IV SCH (10:45)
[2020-07-26] MEDS: CHOLESTYRAMINE 4 GM PACKET PO SCH ×4 (10:45→21:13)
--- NOTE | 2020-07-26 15:56 | NUR ---
Nutrition Intervention Note RD Recommendation(s) for Physician: -Continue Vital AF 1.2 @ goal rate of 60 mL/hr (provides 1728 kcal, 108 g protein, and 1168 mL water) -Continue Michael BID to promote wound healing -Water/fluid management per MD Plan of Care: RD following, monitoring for tolerance and adequacy, tube feed recommendation Nutrition reason for involvement: follow up RD Assessment 07/26: Follow up. Chart reviewed. Pt remains on mechanical ventilation. Pt is tolerating TF at goal rate. Current recommendations remain appropriate. Will continue to monitor. 07/22: Follow up. Pt remains on mechanical ventilation. Pt is receiving tube feeding at 60 mL/hr and Michael BID per RN. Free water was increased to due to elevated Na. RN also mentioned pt is having diarrhea. Current recommendations remain appropriate. Will continue to monitor. (07/17) Pt is a 70 year old female admitted with chronic anemia. Pt has chronic respiratory failure is vent dependent with a PEG tube. Unable to obtain nutrition history from pt. It is noted that pt has a stage 2 pressure ulcer to left and right buttocks and stage 4 sacral pressure ulcer per wound care note. Tube feedings were started. Recommendations provided. RD to manage TF order per Dr. White. Will continue to monitor. Principal Problems/Diagnoses: chronic anemia PMH: Chronic anemia, Respiratory failure, Chronic neurological disease. GI: non-tender/soft abdomen, liquid stools Skin: stage 2 pressure ulcer to left and right buttocks and stage 4 sacral pressure ulcer per wound care note (07/16) Labs: (07/26) Na 141, K 4.5, BUN 22, Cr 0.67, Glu 75, Ca 8.4 (07/22) Na 147, K 4.3, BUN 46, Cr 0.82, Glu 80, Ca 8.4, AST 43 (07/17) Na 140, K 3.8, BUN 55, Cr 1.44, Glu 227, Ca 7.8 Meds: cholestyramine, vancomycin, carafate, multivitamins, antibiotic, ferrous sulfate, vitamin C, folic acid, protonix, Lipitor, lasix, reglan Ht: 60 in Wt:123 lbs (07/23) 121.25 lbs (07/21) 134.19 lbs (07/17) Suspect possible weight error, please reweigh pt BMI: 26.2 kg/m2 using wt of 134.19 lbs (admit weight) IBW: 100 lbs Malnutrition Evaluation (07/22/20) The patient does not meet criteria for a specified degree of malnutrition at this time. Will re-evaluate at follow-up as appropriate. Energy intake: meeting needs with current tube feed rate Weight loss: unable to assess, varied weights in chart Fat loss: unable to evaluate Muscle loss: unable to evaluate Supporting Evidence: Fluid accumulation: no edema per MD note Functional Status: not assessed Nutrition Prescription (Diet Order): Vital AF 1.2 @ 60 mL/hr (provides 1728 kcal, 108 g protein), Michael BID (provides 180 kcal and 5 g protein) Estimated Nutritional Needs: 1469-6938 calories/day (25-30 kcal/kg CBW) using wt of 134.19 lbs (admit weight) 91-120 g protein/day (1.5-2 g pro/kg CBW) using wt of 134.19 lbs (admit weight) Diet Adequacy: meeting calorie needs, meeting protein needs Tolerance: Tolerating TF Diet Education Needs Assessment: Diet education not indicate, pt is intubated. . Nutrition Care Level: moderate Nutrition Diagnosis: Increased nutrient needs related to increased demand for protein and kcal as evidenced by pressure ulcers. Goal: Patient will meet 75-100% of estimated needs by follow up Progress: goal met Interventions: -Composition, Rate, Route Monitoring/Evaluation: -Total energy intake, Total protein intake, Formula/Solution, Weight change Signed: Stephanie Martinez RD, LD
--- NOTE | 2020-07-26 20:00 | NUR ---
Pt's rueda found in bed with balloon still inflated. No visable trauma or blood noted. Pt cleansed and changed, new rueda inserted with assist of nurse charge rn.
[2020-07-26] MEDS: OLANZAPINE 5 MG TAB PO SCH (21:13)
[2020-07-26] MEDS: ATORVASTATIN 40 MG TAB PO SCH (21:15)
[2020-07-27] VITALS (15 sets, daily range): BP systolic 119–157; BP diastolic 46–69
[2020-07-27] MEDS: TRAMADOL HCL 50 MG TAB PO PRN (04:33)
[2020-07-27] MEDS: HYDROCODONE/APAP 10MG-325MG TAB PO PRN (04:33)
[2020-07-27 04:50] LABS: BASOPHILS % 0.5 % (0.0-1.0); EOSINOPHILS # (AUTO) 0.3 (0.0-0.4); EOSINOPHILS % 5.6 % (0.0-6.0); HEMATOCRIT 31.5 % (34.2-44.1); HEMOGLOBIN 9.6 g/dL (12.0-16.0); LYMPHOCYTES # (AUTO) 1.6 (1.0-3.2); LYMPHOCYTES % 26.7 % (18.0-39.1); MEAN CORPUSCULAR HGB CONC 30.5 g/dL (31-35); MEAN CORPUSCULAR VOLUME 91.8 fL (81-99); MONOCYTES # (AUTO) 0.6 (0.2-0.8); MONOCYTES % 9.1 % (4.4-11.3); NEUTROPHILS # (AUTO) 3.5 (2.1-6.9); NEUTROPHILS % 57.9 % (38.7-80.0); PLATELET COUNT 258 x10e3/uL (140-360); RED BLOOD COUNT 3.43 x10e6/uL (3.6-5.1); RED CELL DISTRIBUTION WIDTH 18.7 % (11.7-14.4)
[2020-07-27 05:10] LABS: ALANINE AMINOTRANSFERASE 14 IU/L (0-55); ALBUMIN 1.9 g/dL (3.5-5.0); ALBUMIN/GLOBULIN RATIO 0.4 (0.8-2.0); ALKALINE PHOSPHATASE 155 IU/L (40-150); ANION GAP 10.7 mmol/L (8-16); BLOOD UREA NITROGEN 23 mg/dL (7-26); BUN/CREATININE RATIO 32 (6-25); CALCIUM 8.7 mg/dL (8.4-10.2); CARBON DIOXIDE 23 mmol/L (22-29); CHLORIDE 110 mmol/L (98-107); CREATININE, SERUM 0.72 mg/dL (0.57-1.11); EST GLOMERULAR FILTRATION RATE > 60 ML/MIN (60-); GLUCOSE 78 mg/dL (74-118); POTASSIUM 4.7 mmol/L (3.5-5.1); SODIUM 139 mmol/L (136-145)
[2020-07-27] MEDS: VANCOMYCIN 250MG/5ML ORAL SOLN PO SCH ×4 (06:04→23:45)
[2020-07-27] MEDS: MIDODRINE HCL 5 MG TABLET PO SCH ×4 (06:04→23:45)
--- NOTE | 2020-07-27 06:48 | NUR ---
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 cct>35mins 10-15 falling Hb- monitor; improving plts; CXR worse; on lasix; use pressors as needed; continue nutrition; cont LWC. cct>35mins. 10-16 add sucralfate and ferrous sulfate; remains on pressors; manage in ICU. 10-17 GNR in sputum; hypernatremia- increase free water. 10-18 Providentia stuartii and Pseudomonas PNA, and Fungemia leading to septic shock; Now off pressors; change lines. 10-19 labs pending 10-20 stable; remains off pressors for 48 hrs. SNF eval. 10- Enterococcal Bacteremia; pt is on colistin. 10-22 Worsened anemia- give blood. cont ppi BID; cont rectal tube; questran; LWC to stage 4 sacral ulcer 10- cont IV and PO vanco; colistin/micafungin; questran; vent support; 10-24 repeat blood cx. complete antimicrobials. VIPUL IZQUIERDO MD, PHD.
[2020-07-27] MEDS: COLISTIMETHATE SODIUM 150 MG VIAL INH SCH ×2 (07:30→19:45)
--- NOTE | 2020-07-27 07:51 | Diagnostic Imaging Report ---
EXAMINATION: CHEST SINGLE (PORTABLE) INDICATION: resp failure COMPARISON: Multiple prior chest x-rays including most recent on 07/25/2020. FINDINGS: TUBES and LINES: Tracheostomy, cardiac pacemaker and right PICC are unchanged. LUNGS: Normal lung volumes. No interval change in patchy airspace opacity and pulmonary vessel congestion . PLEURA: Small left pleural effusion. HEART AND MEDIASTINUM: The cardiomediastinal silhouette is mildly enlarged. BONES AND SOFT TISSUES: Degenerative changes in the spine and shoulders. Soft tissues are unremarkable. UPPER ABDOMEN: No free air under the diaphragm. IMPRESSION: 1. No interval change in patchy airspace opacity and pulmonary vascular congestion. 2. Trace left pleural effusion. 3. Stable support tubes/lines as above. Signed by: Reece Bradley MD on 07/27/2020 7:48 AM
--- NOTE | 2020-07-27 08:35 | Progress Note ---
DATE: Pulmonary Critical Care Progress Note SUBJECTIVE: The patient is afebrile. Some facial swelling. She remains on mechanical ventilation. PHYSICAL EXAMINATION: VITAL SIGNS: Blood pressure is 120/54, saturation is 95% and the pulse is 65. HEENT: Shows no facial swelling or erythema. The pharynx examination shows no submandibular, cervical or supraclavicular adenopathy. CARDIAC: Reveals regular rate and rhythm with normal S1, S2. LUNGS: Auscultation of lungs shows decreased breath sounds at the bases. There is no wheezing. ABDOMEN: Soft, nontender. There is no rebound or guarding. EXTREMITIES: Shows no leg edema or calf tenderness. There is no cyanosis or clubbing. SKIN: Shows no rashes. LABORATORY DATA: White blood cell count is 6.02 and hemoglobin 9.6. The platelet count is 259. The BUN to creatinine ratio is normal. The other electrolytes within normal limits. The albumin is 1.9. RADIOGRAPHIC DATA: Chest x-ray shows patchy airspace disease. IMPRESSION: 1. Healthcare-associated pneumonia secondary to Pseudomonas and Providencia with septic shock present on admission. 2. Fungemia. 3. Sacral decubitus ulcer stage IV, present on admission. 4. Thrombocytopenia. 5. Anemia secondary to chronic blood loss. 6. Moderate protein-calorie malnutrition. PLAN: 1. Complete micafungin. 2. Complete Cholestin. 3. Continue oral vancomycin. 4. Continue wound care. 5. Continue enteral feedings. 6. Continue mechanical ventilation. Nixon White MD [facility] /[id number]
[2020-07-27] MEDS: PANTOPRAZOLE 40 MG 10ML VIAL IV SCH ×2 (10:44→18:03)
[2020-07-27] MEDS: MULTIVITAMINS 5 ML LIQUID GT SCH (10:44)
[2020-07-27] MEDS: FERROUS SULFATE 325 MG TAB PO SCH ×2 (10:44→18:03)
[2020-07-27] MEDS: VANCOMYCIN 1GM/NS 250 ML 250 ML IV SCH (10:44)
[2020-07-27] MEDS: SUCRALFATE 1 GM/10 ML SUSP NG SCH ×4 (10:44→20:40)
[2020-07-27] MEDS: MICAFUNGIN SODIUM 100 ML IV SCH (10:45)
[2020-07-27] MEDS: AMIODARONE HCL 200 MG TAB PO SCH (10:45)
[2020-07-27] MEDS: GABAPENTIN 100 MG CAP PO SCH ×3 (10:45→20:40)
[2020-07-27] MEDS: FOLIC ACID 1 MG TAB PO SCH (10:45)
[2020-07-27] MEDS: ESCITALOPRAM OXALATE 10 MG TAB PO SCH (10:45)
[2020-07-27] MEDS: ASCORBIC ACID 500 MG TAB PO SCH ×2 (10:45→18:03)
[2020-07-27] MEDS: ZINC SULFATE 220 MG CAP PO SCH (10:45)
[2020-07-27] MEDS: CHOLESTYRAMINE 4 GM PACKET PO SCH ×4 (10:45→20:40)
[2020-07-27] MEDS: OLANZAPINE 5 MG TAB PO SCH (20:40)
[2020-07-27] MEDS: ATORVASTATIN 40 MG TAB PO SCH (20:40)
[2020-07-27] MEDS: ACETAMINOPHEN 325 MG/10 ML UDC NG PRN (22:00)
[2020-07-28] VITALS (11 sets, daily range): BP systolic 127–157; BP diastolic 45–64
[2020-07-28] MEDS: MIDODRINE HCL 5 MG TABLET PO SCH ×4 (06:15→23:36)
[2020-07-28] MEDS: VANCOMYCIN 250MG/5ML ORAL SOLN PO SCH ×4 (06:15→23:36)
[2020-07-28] MEDS: ACETAMINOPHEN 325 MG/10 ML UDC NG PRN ×2 (06:16→21:16)
[2020-07-28] MEDS: COLISTIMETHATE SODIUM 150 MG VIAL INH SCH ×2 (07:10→19:39)
[2020-07-28] MEDS: ESCITALOPRAM OXALATE 10 MG TAB PO SCH (08:18)
[2020-07-28] MEDS: MULTIVITAMINS 5 ML LIQUID GT SCH (08:18)
[2020-07-28] MEDS: ZINC SULFATE 220 MG CAP PO SCH (08:18)
[2020-07-28] MEDS: ASCORBIC ACID 500 MG TAB PO SCH ×2 (08:18→17:15)
[2020-07-28] MEDS: FERROUS SULFATE 325 MG TAB PO SCH ×2 (08:18→17:15)
[2020-07-28] MEDS: VANCOMYCIN 1GM/NS 250 ML 250 ML IV SCH (08:18)
[2020-07-28] MEDS: CHOLESTYRAMINE 4 GM PACKET PO SCH ×4 (08:18→21:15)
[2020-07-28] MEDS: PANTOPRAZOLE 40 MG 10ML VIAL IV SCH ×2 (08:18→17:15)
[2020-07-28] MEDS: FOLIC ACID 1 MG TAB PO SCH (08:18)
[2020-07-28] MEDS: SUCRALFATE 1 GM/10 ML SUSP NG SCH ×4 (08:18→21:15)
[2020-07-28] MEDS: GABAPENTIN 100 MG CAP PO SCH ×3 (08:18→21:15)
[2020-07-28] MEDS: AMIODARONE HCL 200 MG TAB PO SCH (08:18)
--- NOTE | 2020-07-28 08:23 | NUR ---
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 cct>35mins 10-15 falling Hb- monitor; improving plts; CXR worse; on lasix; use pressors as needed; continue nutrition; cont LWC. cct>35mins. 10-16 add sucralfate and ferrous sulfate; remains on pressors; manage in ICU. 10-17 GNR in sputum; hypernatremia- increase free water. 10-18 Providentia stuartii and Pseudomonas PNA, and Fungemia leading to septic shock; Now off pressors; change lines. 10-19 labs pending 10-20 stable; remains off pressors for 48 hrs. SNF eval. 10- Enterococcal Bacteremia; pt is on colistin. 10- Worsened anemia- give blood. cont ppi BID; cont rectal tube; questran; LWC to stage 4 sacral ulcer 10- cont IV and PO vanco; colistin/micafungin; questran; vent support; 10- repeat blood cx. complete antimicrobials. - repeat blood cx neg to date. VIPUL IZQUIERDO MD, PHD.
--- NOTE | 2020-07-28 12:44 | Progress Note ---
DATE: SUBJECTIVE: The patient is still on mechanical ventilation. She has no fevers. PHYSICAL EXAMINATION: VITAL SIGNS: Stable. Blood pressure is 194/55 and the pulse is 66. HEENT: Shows no facial swelling or erythema. LYMPHATIC: Shows no submandibular, cervical or supraclavicular adenopathy. CARDIAC: Reveals regular rate and rhythm with normal S1 and S2. No murmurs or rubs. LUNGS: Auscultation of lungs shows decreased breath sounds at the bases. There is no wheezing. ABDOMEN: Soft, nontender. There is no rebound or guarding. EXTREMITIES: Shows no leg edema. LABORATORY DATA: White blood cell count is 6.02, hemoglobin is 9.6, and the platelet count is 258. The BUN to creatinine ratio is 23 to 0.72. Other electrolytes are within normal limits. Alkaline phosphatase is 155 and the albumin is 1.9. IMPRESSION: 1. Healthcare-associated pneumonia secondary to Pseudomonas prevention with septic shock present on admission. 2. Fungemia. 3. Sacral decubitus ulcer, stage IV. 4. Thrombocytopenia. 5. Anemia secondary to chronic blood loss. 6. Moderate protein-calorie malnutrition. PLAN: 1. Complete micafungin. 2. Complete Cholestin. 3. Continue oral vancomycin. 4. Continue wound care. 5. Continue enteral feedings. 6. Continue mechanical ventilation. Nixon White MD [facility] /[id number]
[2020-07-28] MEDS: ATORVASTATIN 40 MG TAB PO SCH (21:15)
[2020-07-28] MEDS: OLANZAPINE 5 MG TAB PO SCH (21:15)
[2020-07-29] VITALS (10 sets, daily range): BP systolic 141–165; BP diastolic 46–60
[2020-07-29] MEDS: MIDODRINE HCL 5 MG TABLET PO SCH (05:32)
[2020-07-29] MEDS: VANCOMYCIN 250MG/5ML ORAL SOLN PO SCH (05:32)
[2020-07-29] MEDS: ACETAMINOPHEN 325 MG/10 ML UDC NG PRN (05:32)
[2020-07-29] MEDS ORDERED: ASCORBIC ACID500 MG PO (06:39)
[2020-07-29] MEDS ORDERED: Folic Acid PO (06:39)
[2020-07-29] MEDS ORDERED: AMIODARONE HCL200 MG PO (06:39)
[2020-07-29] MEDS ORDERED: ACETAMINOP325 MG/10 NG (06:39)
[2020-07-29] MEDS ORDERED: GABAPENTIN100 MG PO (06:39)
[2020-07-29] MEDS ORDERED: LEXAPRO10 MG PO (06:39)
[2020-07-29] MEDS ORDERED: CHOLESTYRAMINE L4 GM PO (06:39)
[2020-07-29] MEDS ORDERED: MIDODRINE HCL5 MG PO (06:39)
[2020-07-29] MEDS ORDERED: Atorvastatin PO (06:39)
[2020-07-29] MEDS ORDERED: PANTOPRAZOLE SO40 MG PEG (06:39)
[2020-07-29] MEDS ORDERED: MULTIVITAM9 MG/15 ML GT (06:39)
[2020-07-29] MEDS ORDERED: SUCRALFATE1 G/10 ML NG (06:39)
[2020-07-29] MEDS ORDERED: ZYPREXA5 MG PO (06:39)
[2020-07-29] MEDS ORDERED: FERROUS SULFAT325 MG PO (06:39)
[2020-07-29] MEDS ORDERED: ZINC SULFATE220 M1 PO (06:39)
[2020-07-29 07:48] LABS: BASOPHILS # (AUTO) 0.1 (0.0-0.1); BASOPHILS % 0.8 % (0.0-1.0); EOSINOPHILS # (AUTO) 0.4 (0.0-0.4); EOSINOPHILS % 6.4 % (0.0-6.0); HEMATOCRIT 33.9 % (34.2-44.1); HEMOGLOBIN 10.4 g/dL (12.0-16.0); LYMPHOCYTES # (AUTO) 1.6 (1.0-3.2); LYMPHOCYTES % 26.1 % (18.0-39.1); MEAN CORPUSCULAR HEMOGLOBIN 28.7 pg (28-32); MEAN CORPUSCULAR HGB CONC 30.7 g/dL (31-35); MEAN CORPUSCULAR VOLUME 93.4 fL (81-99); MONOCYTES # (AUTO) 0.6 (0.2-0.8); MONOCYTES % 10.8 % (4.4-11.3); NEUTROPHILS # (AUTO) 3.3 (2.1-6.9); NEUTROPHILS % 55.7 % (38.7-80.0); PLATELET COUNT 309 x10e3/uL (140-360); RED BLOOD COUNT 3.63 x10e6/uL (3.6-5.1); RED CELL DISTRIBUTION WIDTH 17.5 % (11.7-14.4)
[2020-07-29] MEDS ORDERED: LINEZOLID 600 MG/D5W 300ML 300 ML IV SCH (08:00)
[2020-07-29] MEDS: ASCORBIC ACID 500 MG TAB PO SCH (08:07)
[2020-07-29] MEDS: FOLIC ACID 1 MG TAB PO SCH (08:07)
[2020-07-29] MEDS: FERROUS SULFATE 325 MG TAB PO SCH (08:07)
[2020-07-29] MEDS: CHOLESTYRAMINE 4 GM PACKET PO SCH (08:07)
[2020-07-29] MEDS: MULTIVITAMINS 5 ML LIQUID GT SCH (08:07)
[2020-07-29] MEDS: GABAPENTIN 100 MG CAP PO SCH (08:07)
[2020-07-29] MEDS: ZINC SULFATE 220 MG CAP PO SCH (08:07)
[2020-07-29] MEDS: PANTOPRAZOLE 40 MG 10ML VIAL IV SCH (08:07)
[2020-07-29] MEDS: AMIODARONE HCL 200 MG TAB PO SCH (08:07)
[2020-07-29] MEDS: SUCRALFATE 1 GM/10 ML SUSP NG SCH (08:07)
[2020-07-29 08:18] LABS: BLOOD UREA NITROGEN 29 mg/dL (7-26); BUN/CREATININE RATIO 41 (6-25); CALCIUM 9.3 mg/dL (8.4-10.2); CARBON DIOXIDE 20 mmol/L (22-29); CHLORIDE 111 mmol/L (98-107); EST GLOMERULAR FILTRATION RATE > 60 ML/MIN (60-); GLUCOSE 95 mg/dL (74-118); SODIUM 137 mmol/L (136-145)
[2020-07-29 08:19] LABS: MAGNESIUM 1.8 MG/DL (1.3-2.1)
--- NOTE | 2020-07-29 08:33 | NUR ---
PT SHOULD HAVE RETURNED TO [facility], SPOKE WITH CHARGE NURSE MARGUERITE, SHE WILL HAVE NURSE CALL REPORT AND SEND BACK TO FACILITY.
--- NOTE | 2020-07-29 08:40 | NUR ---
CALLED REPORT TO [facility] AT [facility]. PATIENT GOING TO BED 504F
[2020-07-29] MEDS ORDERED: COLISTIMETHATE SODIUM 150 MG VIAL INH SCH (09:00)
[2020-07-29] MEDS ORDERED: MICAFUNGIN SODIUM 100 ML IV SCH (09:00)
--- NOTE | 2020-07-29 10:59 | Progress Note ---
DATE: SUBJECTIVE: The patient is afebrile. She remains on mechanical ventilation. PHYSICAL EXAMINATION: GENERAL: Shows no fevers. VITAL SIGNS: The blood pressure is 141/55 and the pulse is 65. Saturation is 100%. HEENT: Shows no facial swelling or erythema. Tracheostomy sites in good position. There is no drainage. CARDIAC: Reveals regular rate and rhythm. Normal S1, S2. LUNGS: Auscultation of lungs reveals decreased breath sounds at the bases. There is no wheezing. ABDOMEN: Soft, nontender. There is no rebound or guarding. EXTREMITIES: Shows no leg edema or calf tenderness. There is no cyanosis or clubbing. SKIN: Shows no rashes. NEUROLOGICAL: Shows no focal abnormalities. LABORATORY DATA: White blood cell count is 5.93, hemoglobin is 10.4, and the platelet count is 309. The BUN to creatinine ratio is normal. The carbon dioxide is 20. The potassium is 5. Albumin is 1.9. IMPRESSION: 1. Healthcare-associated pneumonia, secondary to Pseudomonas and Providencia with septic shock, present on admission. 2. Fungemia. 3. Stage IV sacral decubitus ulcer. 4. Thrombocytopenia. 5. Anemia, secondary to chronic blood loss. 6. Moderate protein-calorie malnutrition. PLAN: 1. The patient to be transferred back to [facility]. 2. Continue wound care. 3. Complete antibiotics. 4. Continue current ventilator settings. Nixon White MD [facility] /[id number]
== END 2020-07-29 10:20 | DRG 870 ==
LOC: ER 19:24 → ERHOLD 21:00 → ICU 22:44
PROVIDERS: ADMIT Internal Medicine; ATTEND Internal Medicine
PROC: 5A1955Z Respiratory Ventilation, Greater than 96 Consecutive Hours (ICD-10-PCS; principal; 2020-07-15)
PROC: 30233N1 Transfusion of Nonautologous Red Blood Cells into Peripheral Vein, Percutaneous Approach (ICD-10-PCS; 2020-07-15)
PROC: 02HV33Z Insertion of Infusion Device into Superior Vena Cava, Percutaneous Approach (ICD-10-PCS; 2020-07-21)
DX: A41.9 Sepsis, unspecified organism (principal); L89.614 Pressure ulcer of right heel, stage 4; L89.154 Pressure ulcer of sacral region, stage 4; R65.21 Severe sepsis with septic shock; J15.1 Pneumonia due to Pseudomonas; I50.23 Acute on chronic systolic (congestive) heart failure; D62 Acute posthemorrhagic anemia; J96.10 Chronic respiratory failure, unspecified whether with hypoxia or hypercapnia; E44.0 Moderate protein-calorie malnutrition; N17.9 Acute kidney failure, unspecified; B49 Unspecified mycosis; K52.1 Toxic gastroenteritis and colitis; E87.1 Hypo-osmolality and hyponatremia; J44.0 Chronic obstructive pulmonary disease with (acute) lower respiratory infection; I13.0 Hypertensive heart and chronic kidney disease with heart failure and stage 1 through stage 4 chronic kidney disease, or unspecified chronic kidney disease; I42.9 Cardiomyopathy, unspecified; N18.30 Chronic kidney disease, stage 3 unspecified; Z68.24 Body mass index [BMI] 24.0-24.9, adult; Z95.0 Presence of cardiac pacemaker; Z93.1 Gastrostomy status; Z74.01 Bed confinement status; L89.620 Pressure ulcer of left heel, unstageable; L89.312 Pressure ulcer of right buttock, stage 2; D69.6 Thrombocytopenia, unspecified; Y95 Nosocomial condition; T36.95XA Adverse effect of unspecified systemic antibiotic, initial encounter; I11.0 Hypertensive heart disease with heart failure; Z11.59 Encounter for screening for other viral diseases; E78.5 Hyperlipidemia, unspecified; I48.0 Paroxysmal atrial fibrillation; Z79.01 Long term (current) use of anticoagulants; D50.9 Iron deficiency anemia, unspecified; K59.00 Constipation, unspecified
CPT/HCPCS: 36415; 36584; 36600; 71045; 74018; 80048; 80053; 81001; 82270; 82607; 82728; 82805; 82948; 83540; 83735; 84100; 84466; 85025; 86022; 86850; 86900; 86920; 87040; 87070; 87071; 87186; 87205; 93005; 93306; 94002; 94003; 94640; 99251; 99284; J0770; J1940; J1956; J2020; J2248; J2916; J3370; J7050; J7121; J7799; P9016; P9047

== ENCOUNTER 2020-09-01 09:54 | Emergency (ER) | payer MEDICARE ==
[~2020-09-01] VITALS: Ht 152.4 cm; Wt 55.8 kg
[~2020-09-01 09:54] MED LIST: ACETAMINOP325 MG/10 NG; AMIODARONE HCL200 MG PO; ASCORBIC ACID500 MG PO; Atorvastatin PO; CHOLESTYRAMINE L4 GM PO; FERROUS SULFAT325 MG PO; Folic Acid PO; GABAPENTIN100 MG PO; LEXAPRO10 MG PO; MIDODRINE HCL5 MG PO; MULTIVITAM9 MG/15 ML GT; PANTOPRAZOLE SO40 MG PEG; SUCRALFATE1 G/10 ML NG; ZINC SULFATE220 M1 PO; ZYPREXA5 MG PO
--- OUTSIDE RECORDS SUMMARY | 2020-09-01 10:20 | XMS REPORT | Continuity of Care Document ---
Author Author Jason Cinemur, ALBARO Torres [employer] Address Unknown Phone Unavailable Care Team Providers Care Ssds Mk 2 Advanced Operator Name Role Phone [employer] Information Exchange Unavailable Un available Problems Problem Status Onset Date Classification Date Reported Comments Source Methicillin resistant Staphylococcus aureus (organism) Active 05/31/2020 Problem 06/08/2020 Nares, PCR+, 2019 Problem added by Discern Expert. [place] Escherichia coli (organism) Ac tive 05/31/2020 Problem 06/08/2020 Sputum, 05/31/2020 Sacral Wound, 05/30/2020 Problem added by Discern Expert. [place] ACUTE SEPSIS CHRONIC RESPIRATORY FAILURE Active 05/30/2020 [place] UNRESPONSIVE Active 05/30/2020 [place] Proteus (organism) Active 05/30/2020 Problem 06/08/2020 sacral wound, ESBL+, 05/30/2020 Problem added by Discern Expert. [facility] Chronic obstructive pulmonary disease wi th (acute) exacerbation 11/26/2018 05/19/2019 [facility] DYSPNEA Active 10/29/2018 [facility] COPD Active 10/29/2018 [facility] SOB Active 0 10/29/2018 [facility] Osteoarthritis involving multiple joints on both sides of body Active Prob gagan 07/28/2018 [facility] Lumbago with sciatica, left side Active Problem [facility] Pain in left shoulder Active Diagnosis 07/28/2018 [facility] Counseling NOS Active Diagnosis 07/28/2018 [facility] Pain in right shoulder Active Diagnosis 07/28/2018 [facility] Nicotine dependence, cigarettes, with withdrawal 05/19/2019 [facility] Atherosclerotic heart disease of [place] coronary artery without angina pectoris 05/19/2019 [facility] Heart failure, unspecified 05/19/2019 [facility] Major depressive disorder, single episode, unspecified 05/19/2019 [facility] Gastro-esophageal reflux disease without esophagitis 05/19/2019 [facility] 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 05/19/2019 [facility] Migraine, unspecified, not intractable, without status migrainosus 05/19/2019 [facility] Old myocardial infarction 05/19/2019 [facility] 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 (disorder) Active Problem 06/08/2020 [facility] D-dimer above reference range (finding) Active Problem 06/08/2020 [facility] Deficiency of macronutrients (disorder) Active Problem 06/08/2020 [facility] Chronic obstructive bronchitis (disorder) Active Problem 06/08/2020 [facility] Hypertensive disorder, systemic arterial (disorder) Resolved Problem 06/08/2020 [facility] Swollen abdomen (finding) Acti ve Problem 02/2020 [facility] Pseudomonas (organism) Active Problem 06/08/2020 Problem added by Discern Expert. [facility] DYSPNEA, UNSPECIFIED Active [facility] SEPSIS, UNSPECIFIED ORGANISM A ctive [facility] CHRONIC RESPIRATORY FAILURE, UNSP W HYPO Active [facility] PRESSURE ULCER OF SACRAL REGION, STAGE 4 Active [facility] Medications Medication Details Route Status Patient Instructions Ordering Provider Order Date Source Saline Flush 0.9% Notes: (Same as: BD Posiflush) Inactive 06/06/2020 [facility] losartan 50 mg oral tablet 100 mg = 2 tab, PO, Daily, 0 Refill(s) Active 06/06/2020 [facility] collagenase topical 250 units/g ointment 1 appl, TOP, Daily, 0 Refill(s) Active 06/06/2020 [facility] fluconazole 200 mg oral tablet 200 mg = 1 tab, PEG, Daily, X 5 day, # 5 tab, 0 Refill(s), other Active 06/06/2020 [facility] ocular lubricant 1 appl, BOTH EYES, Q6H, 0 Refill(s) Active 06/06/2020 [facility] Sodium Hypochlorite 1.25 MG/ML Topical Solution 1 appl, TOP, Daily, 0 Refill(s) Active 06/06/2020 [facility] meropenem 500 mg intravenous injection 500 mg, IV, Q6H, X 35 day, # 140 ea, 0 Refill(s), other Active 06/06/2020 [facility] Saline Flush 0.9% Notes: (Same as: BD Posiflush) Inactive 06/06/2020 [facility] Santyl Notes: (Same As: Santyl) Inactive 06/06/2020 [place] Losartan Notes: (Same as: Ludmila bolivar) No Longer Active 06/05/2020 [place] Losartan Notes: (Same as: Ludmila bolivar) Inactive 06/04/2020 [place] Labetalol 10 mg, 2 mL, Route: IV, Drug form: INJ, ONCE, Dosing Weight 59.6, kg, Start date: 06/03/20 5:40:00 CDT, Stop date: 06/03/20 5:40:00 CDT, 0 Inactive 06/03/2020 [place] Escitalopram Notes: (Same as: Lexapro) No Longer Active 06/02/2020 [place] Famotidine 20 MG Oral Tablet N otes: (Same as: Pepcid) No Longer Active 06/02/2020 [place] Folic Acid Notes: (Same as: Fo lvite) No Longer Active 06/02/2020 [place] Furosemide 40 MG Oral Tablet [Lasix] Notes: (Same as: Lasix) May cause GI upset. Give with food or milk. No Longer Active 06/02/2020 [place] Losartan Notes: (Same as: Ludmila bolivar) No Longer Active 06/02/2020 [place] multivitamin Notes: (Same as:Roderick saini) WASTE: F/P - Black; E - Municipal Trash Bin Take with food. No Longer Active 06/02/2020 [place] Zinc Sulfate Notes: (Zinc sulf ate capsule) - 220 mg Zinc sulfate = 50 mg elemental zinc Same as Zinc Sulfate No Longer Active 06/02/2020 [place] atorvastatin Notes: (Same as: Lipitor) No Longer Active 06/02/2020 [place] Fluconazole Notes: (Same as: D iflucan) Do not refrigerate Hazardous Drug Group 3:Reproductive risk Hazardous Drug -- Refer to safe handling procedure PPE Matrix No Longer Active 06/01/2020 [place] ferrous sulfate Notes: Give wi th food. "Do Not Crush" No Longer Active 06/01/2020 [place] Amiodarone Notes: (Same as: Co rdarone) No Longer Active 06/01/2020 [place] carvedilol Notes: Give with fo od. (Same As: Coreg) No Longer Active 06/01/2020 [place] Solu-Medrol Notes: (Same as:So akshat-MEDROL, A-Methapred) No Longer Active 06/01/2020 [place] Dakins Solution 1 appl, Route: TOP, BID, Drug form: SOLN, Start date: 06/01/20 9:00:00 CDT, Duration: 30 day, Stop date: 06/30/20 17:00:00 CDT Inactive 06/01/2020 [place] Dakins Quarter Strength Solution Notes: (Dakin's (0.125%=1/4 strength) 473ml top SOLN) For external use only. Note: quarter strength = 0.125% sodium hypochlorite. No Longer Active 06/01/2020 [place] Omnipaque 350 injectable solution Notes: (same as:Omnipaque 350). WASTE: F/P - Black; E - Municipal Trash Bin Inactive 06/01/2020 [place] Vancomycin 2001 mg: infuse ov er 2.5 hours For adult patients only: Round to nearest 250 mg per Medical Staff approval No Longer Active 05/31/2020 [place] AMIODarone 200 mg oral tablet 200 mg = 1 tab, PO, Daily, # 90 tab, 3 Refill(s) Active 05/31/2020 [place] Sulfamethoxazole 800 MG / Trimethoprim 1 60 MG Oral Tablet [Bactrim] 1 tab, PO, BID, # 20 tab, 0 Refill(s) No Longer Active 05/31/2020 [place] Famotidine 20 MG Oral Tablet 2 0 mg = 1 tab, PO, Daily, 0 Refill(s) Active 05/31/2020 [place] Zinc-220 oral capsule 220 mg = 1 cap, PO, Daily, 0 Refill(s) Active 05/31/2020 [place] ferrous sulfate 220 mg/5 mL oral elixir 220 mg = 5 mL, PO, TID, 0 Refill(s) Active 05/31/2020 [place] Folic Acid 1 mg, Daily, 0 Refi ll(s) Active 05/31/2020 [place] multivitamin 15 mL, Daily, 0 R efill(s) Active 05/31/2020 [place] Omnipaque 350 injectable solution Notes: (same as:Omnipaque 350). WASTE: F/P - Black; E - Municipal Trash Bin No Longer Active 05/31/2020 [place] Lasix Notes: (Same as: Lasix) Inactive 05/31/2020 [facility] Protonix Notes: For IV push re constitute with 10 ml 0.9% sodium chloride and push over 2 minutes. (Same as: Protonix) No Longer Active 05/31/2020 [facility] Saline Flush 0.9% Notes: (Same as: BD Posiflush) No Longer Active 05/31/2020 [facility] Albuterol 0.833 MG/ML / Ipratropium Brom kt 0.167 MG/ML Inhalant Solution [DuoNeb] Notes: (Same as: Duoneb) No Longer Active 05/31/2020 [facility] Merrem Notes: Same as Merrem No Longer Active 05/31/2020 [facility] ocular lubricant Notes: (Same as: Lacri-Lube, Puralube, Duratears Naturale, Artificial Tears, and Tears Again ) No Longer Active 05/31/2020 [facility] heparin Notes: porcine heparin No Longer Active 05/31/2020 [facility] Solu-Medrol Notes: (Same as:So akshat-MEDROL, A-Methapred) Inactive 05/31/2020 [facility] Sodium Chloride 0.9% (Bolus) IV 500 mL, 500 ml/hr, Infuse Over: 1 hr, Route: IV, 500, Drug form: INJ, ONCE, Priority: STAT, Dosing Weight 61.2 kg, Start date: 05/30/20 21:08:00 CDT, Stop date: 05/30/20 21:08:00 CDT, 0 Inactive 05/31/2020 [facility] Potassium Chloride Notes: ([facility] e as: KCL) Infuse no faster than 10 mEq/hr if given peripherally. No Longer Active 05/31/2020 [facility] sodium phosphate Notes: Infuse over 4 hour. Do not infuse phosphorous concurrently in the same line as TPN or IVF that contains calcium. For double lumen central lines, phosphorous may be infused in a separate lumen from TPN. No Longer Active 05/31/2020 [place] potassium phosphate Notes: ( me as: K Phosphate.) Do not infuse phosphorous concurrently in the same line as TPN or IVF that contains calcium. For double lumen central lines, phosphorous may be infused in a separate lumen from TPN. 1 mMol phoshate has 1.47 mEq potassium Infuse over 4 hours No Longer Active 05/31/2020 [facility] potassium phosphate-sodium phosphate 250 mg-280 mg-160 mg oral powder for reconstitution Notes: (Same as: Phos-NaK) Each 1.5 gm pkt has 250mg phosphorous. Mix w/2.5oz water and stir. No Longer Active 05/31/2020 [place] Magnesium Sulfate Notes: WASTE : F/P - Sink; E - Municipal Trash Bin No Longer Active 05/31/2020 [place] Magnesium Oxide Notes: (Same a s: Mag-Ox 400) Magnesium oxide [id number] elemental magnesium Dose=____mg magnesium oxide (___mg elemental magnesium) No Longer Active 05/31/2020 [place] Calcium Gluconate Notes: Conta ins: calcium gluconate 20mg/mL NaCl 0.67% 50mL WASTE: F/P - Sink; E - Municipal Trash Bin No Longer Active 05/31/2020 [facility] Calcium Carbonate 500 MG Chewable Tablet Notes: (Same As: Tums) Calcium Carbonate 500 mg = 200 mg elemental calcium Dose = mg calcium carbonate ( mg elemental calcium) No Longer Active 05/31/2020 [facility] Nystatin 100 UNT/MG Topical Powder Notes: (Same as:Mycostatin, Nilstat) For external use only. No Longer Active 05/31/2020 [place] Saline Flush 0.9% Notes: (Same as: BD Posiflush) No Longer Active 05/31/2020 [facility] Dextrose 50% Syringe (D50W) 12 .5 gm, 25 mL, Route: IVP, Drug Form: INJ, Dosing Weight 61.2, kg, PRN, PRN Blood Glucose Results, Start date: 05/30/20 21:06:00 CDT, Duration: 30 day, Stop date: 06/29/20 21:05:00 CDT, 0 No Longer Active 05/31/2020 [facility] Glucagon 1 mg, Route: IM, Drug form: PDR/INJ, PRN, Dosing Weight 61.2, kg, PRN Blood Glucose Results, Start date: 05/30/20 21:06:00 CDT, Duration: 30 day, Stop date: 06/29/20 21:05:00 CDT, 0 No Longer Active 05/31/2020 [place] Insulin Lispro Notes: (Same as : Humalog) Roll in palms of hands gently; Do not shake vigorously. WASTE: F/P - Black; E - Municipal Trash Bin Stable for 28 days at room temperature. Expires in days from Date No Longer Active 05/31/2020 [place] chlorhexidine gluconate 1.2 MG/ML Mouthwash Notes: (Same As: Peridex) No Longer Active 05/31/2020 [place] NS 1,000 mL 1,000 mL, Rate: 75 ml/hr, Infuse over: 13.3 hr, Route: IV, Dosing Weight 61.2 kg, Total Volume: 1,000, Start date: 05/30/20 19:47:00 CDT, Duration: 30 day, Stop date: 06/29/20 19:46:00 CDT, 1.63, m2, 0 No Longer Active 05/31/2020 [place] Dextrose 50% Syringe (D50W) 12 .5 gm, 25 mL, Route: IVP, Drug Form: INJ, Dosing Weight 61.2, kg, PRN, PRN Blood Glucose Results, Start date: 05/30/20 19:40:00 CDT, Duration: 30 day, Stop date: 06/29/20 19:39:00 CDT, 0 No Longer Active 05/31/2020 [place] Glucagon 1 mg, Route: IM, Drug form: PDR/INJ, PRN, Dosing Weight 61.2, kg, PRN Blood Glucose Results, Start date: 05/30/20 19:40:00 CDT, Duration: 30 day, Stop date: 06/29/20 19:39:00 CDT, 0 No Longer Active 05/31/2020 [place] Omnipaque 300 injectable solution Notes: (Same as:Omnipaque 300). WASTE: F/P - Black; E - Municipal Trash Bin No Longer Active 05/31/2020 [place] chlorhexidine gluconate 1.2 MG/ML Mouthwash Notes: (Same As: Peridex) No Longer Active 05/30/2020 [place] Saline Flush 0.9% Notes: (Same as: BD Posiflush) No Longer Active 05/30/2020 [place] Calcium Chloride 0.0014 MEQ/ML / [place] Chloride 0.004 MEQ/ML / Sodium Chloride 0.103 MEQ/ML / Sodium Lactate 0.028 MEQ/ML Injectable Solution 1,000 mL, 2,000 ml/hr, Route: IV, ONCE, Priority: STAT, Dosing Weight 61.364 kg, Start date: 05/30/20 17:15:00 CDT, Stop date: 05/30/20 17:15:00 CDT Inactive 05/30/2020 [facility] methylPREDNISolone SODium SUCCinate 125 mg, Route: IVP, ONCE, Dosing Weight 61.364, kg, Priority: STAT, Start date: 05/30/20 17:15:00 CDT, Stop date: 05/30/20 17:15:00 CDT Inactive 05/30/2020 [facility] Albuterol 0.833 MG/ML / Ipratropium Brom kt 0.167 MG/ML Inhalant Solution 3 mL, Route: NEB, Dosing Weight 61.364, kg, ONCE, STAT, Start date: 05/30/20 17:15:00 CDT, Stop date: 05/30/20 17:15:00 CDT Inactive 05/30/2020 [facility] Vancomycin 2001 mg: infuse ov er 2.5 hours For adult patients only: Round to nearest 250 mg per Medical Staff approval MEDICATION WASTE Product Size: 1000 mg Product Wasted: ___ mg Inactive 05/30/2020 [facility] meropenem 1 gm, Route: IVP, ON CE, Dosing Weight 61.364, kg, Priority: STAT, Start date: 05/30/20 17:15:00 CDT, Stop date: 05/30/20 17:15:00 CDT, ABX Indication: Other (specify in Comments) Inactive 05/30/2020 [facility] Mucinex Notes: (Same as: Guaif enesin LA, Humibid LA, Mucinex) Inactive 10/31/2018 [facility] atorvastatin Notes: (Same As: Lipitor) Inactive 10/31/2018 [facility] azithromycin 500 mg oral tablet 500 mg = 1 tab, PO, Daily, X 2 day, # 2 tab, 0 Refill(s), Pharmacy: [facility] [id number] No Longer Active 10/30/2018 [facility] predniSONE 20 mg oral tablet 4 0 mg = 2 tab, PO, Daily, X 4 day, # 8 tab, 0 Refill(s), Pharmacy: [facility] [id number] No Longer Active 10/30/2018 [facility] Methocarbamol Notes: (Same as: Robaxin) Inactive 10/30/2018 [facility] Protonix Notes: Tablet should not be chewed or crushed. (Same as: Protonix) Inactive 10/30/2018 [facility] Lisinopril Notes: (Same as: Pr inivil, Zestril) Inactive 10/30/2018 [facility] Escitalopram Notes: (Same as: Lexapro) Inactive 10/30/2018 [facility] Furosemide 40 MG Oral Tablet [Lasix] Notes: (Same as: Lasix) May cause GI upset. Give with food or milk. Inactive 10/30/2018 [facility] Docusate Notes: (Same as: Cola ce) (Do Not Crush) Inactive 10/30/2018 [facility] Acetaminophen 300 MG / Codeine Phosphate 30 MG Oral Tablet [Tylenol with Codeine #3] Notes: Do not exceed 4gm/day of acetamin ophen. (Same as: Tylenol with Codeine # 3) Inactive 10/30/2018 [facility] Albuterol 0.833 MG/ML / Ipratropium Brom kt 0.167 MG/ML Inhalant Solution Notes: (Same as: Duoneb) Inactive 10/30/2018 [facility] nter Trazodone Hydrochloride 100 MG Oral Tablet Notes: (Same As: Desyrel) Inactive 10/30/2018 [facility] gabapentin 300 MG Oral Capsule Notes: (Same as: Neurontin) Inactive 10/30/2018 [facility] Furosemide 40 MG Oral Tablet [Lasix] 40 mg = 1 tab, PO, Daily, # 30 tab, 0 Refill(s) Active 10/30/2018 [facility] nter escitalopram 20 mg oral tablet 20 mg = 1 tab, PO, Daily, # 30 tab, 0 Refill(s) Active 10/30/2018 [facility] pantoprazole 40 MG Enteric Coated Tablet [Protonix] 40 mg = 1 tab, PO, Daily, # 30 tab, 0 Refill(s) Active 10/30/2018 [facility] nter carvedilol 12.5 MG Oral Tablet [Coreg] 12.5 mg = 1 tab, PO, BID, 0 Refill(s) Active 10/30/2018 [facility] Trazodone Hydrochloride 100 MG Oral Tablet 100 mg = 1 tab, PO, Bedtime, # 30 tab, 0 Refill(s) Active 10/30/2018 [facility] nter gabapentin 300 MG Oral Capsule 300 mg = 1 cap, PO, Bedtime, 0 Refill(s) Active 10/30/2018 [facility] atorvastatin 20 mg oral tablet 20 mg = 1 tab, PO, Bedtime, # 30 tab, 0 Refill(s) Active 10/30/2018 [facility] nter lisinopril 5 mg oral tablet 5 mg = 1 tab, PO, Daily, # 30 tab, 0 Refill(s) Active 10/30/2018 [facility] methocarbamol 500 mg oral tablet 1,000 mg = 2 tab, PO, BID, 0 Refill(s) Active 10/30/2018 [facility] Albuterol 0.833 MG/ML / Ipratropium Brom kt 0.167 MG/ML Inhalant Solution [DuoNeb] 3 ml, INHALATION, QID, # 30 ea, 0 Refill (s) Active 10/30/2018 [facility] Nicotine Notes: (Same as: Ferny vale) "Remove old patch before application of new patch" WASTE: F/P - P Waste Black; E - P Waste Black Inactive 10/30/2018 [facility] Dextrose 50% Syringe 12.5 gm, 25 mL, Route: IVP, Drug Form: INJ, Dosing Weight 61.364, kg, PRN, PRN Blood Glucose Results, Start date: 10/30/18 0:17:00 INSTALLATION MANAGER, Duration: 30 day, Stop date: 11/29/18 0:16:00 INSTALLATION MANAGER Inactive 10/30/2018 [facility] Glucagon 1 mg, Route: IM, Drug form: PDR/INJ, PRN, Dosing Weight 61.364, kg, PRN Blood Glucose Results, Start date: 10/30/18 0:17:00 INSTALLATION MANAGER, Duration: 30 day, Stop date: 11/29/18 0:16:00 INSTALLATION MANAGER Inactive 10/30/2018 [facility] Ondansetron Notes: (Same as: Viviana martinez) MEDICATION WASTE Product Size: 4 mg Product Wasted: ___ mg Inactive 10/30/2018 [facility] gabapentin 300 MG Oral Capsule 300 mg, 1 cap, Route: PO, ONCE, Dosing Weight 61.364, kg, Start date: 10/29/18 22:55:00 INSTALLATION MANAGER, Stop date: 10/29/18 22:55:00 INSTALLATION MANAGER Inactive 10/30/2018 [facility] Acetaminophen 300 MG / Codeine Phosphate 30 MG Oral Tablet [Tylenol with Codeine #3] 1 tab, Route: PO, Drug Form: TAB, Dosing Weight 61.364, kg, ONCE, STAT, Start date: 10/29/18 22:54:00 INSTALLATION MANAGER, Stop date: 10/29/18 22:54:00 INSTALLATION MANAGER Inactive 10/30/2018 [facility] Azithromycin Notes: (Same As: Zithromax IV) Inactive 10/30/2018 [facility] Albuterol 0.833 MG/ML / Ipratropium Brom kt 0.167 MG/ML Inhalant Solution [DuoNeb] Notes: (Same as: Duoneb) Inactive 10/30/2018 [facility] Magnesium Sulfate 2 gm, Route: IV, ONCE, Dosing Weight 61.364, kg, Priority: STAT, Start date: 10/29/18 18:53:00 INSTALLATION MANAGER, Stop date: 10/29/18 18:53:00 INSTALLATION MANAGER Inactive 10/30/2018 [facility] Meloxicam 1 tablet Orally Active 15 MG Orally Once a day prn with food [facility] 01/26/2017 [facility] Gabapentin 1 capsule Orally Active 300 MG Orally Three bonnie es a day [facility] 11/24/2016 [facility] Gabapentin 1 capsule Orally Active 300 MG [facility] Meloxicam 1 tablet Orally Active 15 MG Orally [facility] Gabapentin 1 capsule Orally Active 300 MG [facility] Atorvastatin Calcium 1 tablet Orally Active 40 MG Orally Once a day [facility] Potassium Chloride 1 packet wi th food Orally Active 20 MEQ Orally Once a day [facility] Methocarbamol 1 tablet Orally Active 750 [...] D (Ergocalciferol) 1 c apsule Orally Active 40159 UNIT Orally Once a day [facility] Fluoxetine HCl 1 capsule in morning Orally Active 20 MG Orally Once a day [facility] Allergies, Adverse Reactions, Alerts Substance Category Reaction Severity Reaction type Status Date Reported Comments Source Aspirin Adverse Reaction Info Not Available Adverse Reaction Active 07/26/2018 [facility] penicillins Assertion pt states she"passes out" Severe Drug allergy Active [place] aspirin Assertion pt states it makes her stomach hurt Mild Propensity to adverse reactions to drug Active Sugar L and Immunizations No Data Provided for This Section Results Order Name Results Value Reference Range Date Interpretation Comments Source CHEM PANEL Glucose Lvl 91 70 - 99 06/06/2020 [place] CHEM PANEL BUN 28 7 - 22 06/06/2020 [place] CHEM PANEL Creatinine Lvl 0.54 0.50 - 1.40 06/06/2020 [place] CHEM PANEL Sodium Lvl 147 135 - 145 06/06/2020 [place] CHEM PANEL Potassium Lvl 4.2 3.5 - 5.1 06/06/2020 [place] CHEM PANEL Chloride Lvl 115 95 - 109 06/06/2020 [place] CHEM PANEL CO2 26 24 - 32 06/06/2020 [place] CHEM PANEL Calcium Lvl 8.3 8.5 - 10.5 06/06/2020 [place] CHEM PANEL AGAP 10.2 10.0 - 20.0 06/06/2020 [place] CHEM PANEL eGFR 97 06/06/2020 Result Comment: [...] should be multiplied by the estimated BMI. [place] CHEM PANEL Total Protein 6.0 6.4 - 8.4 06/06/2020 [place] CHEM PANEL Albumin Lvl 1.8 3.5 - 5.0 06/06/2020 [place] CHEM PANEL ALT 33 0 - 65 06/06/2020 [place] CHEM PANEL AST 24 0 - 37 06/06/2020 [place] CHEM PANEL Alk Phos 145 39 - 136 06/06/2020 [place] CHEM PANEL Bili Total 0.6 0.2 - 1.3 06/06/2020 [place] CHEM PANEL Bili Direct 0.2 0.0 - 0.3 06/06/2020 [place] CHEM PANEL Bili Indirect 0.4 0.0 - 1.0 06/06/2020 [place] CHEM PANEL Globulin 4.2 2.7 - 4.2 06/06/2020 [place] CHEM PANEL A/G Ratio 0.4 0.7 - 1.6 06/06/2020 [place] HEMATOLOGY Segs 83.3 45.0 - 75.0 06/06/2020 [place] HEMATOLOGY Lymphocytes 9.9 20.0 - 40.0 06/06/2020 [place] HEMATOLOGY Monocytes 4.5 2.0 - 12.0 06/06/2020 [place] HEMATOLOGY Eosinophils 1.9 0.0 - 4.0 06/06/2020 [place] HEMATOLOGY Basophils 0.4 0.0 - 1.0 06/06/2020 [place] HEMATOLOGY Neutrophils # 13.8 1.5 - 8.1 06/06/2020 [place] HEMATOLOGY Lymphocytes # 1.7 1.0 - 5.5 06/06/2020 [place] HEMATOLOGY Monocytes # 0.8 0.0 - 0.8 06/06/2020 [place] HEMATOLOGY Eosinophils # 0.3 0.0 - 0.5 06/06/2020 [place] HEMATOLOGY Basophils # 0.1 0.0 - 0.2 06/06/2020 [place] HEMATOLOGY WBC 16.6 3.7 - 10.4 06/06/2020 [place] HEMATOLOGY RBC 3.76 4.20 - 5.40 06/06/2020 [place] HEMATOLOGY Hgb 10.3 12.0 - 16.0 06/06/2020 [place] HEMATOLOGY Hct 31.8 36.0 - 48.0 06/06/2020 [place] HEMATOLOGY MCV 84.5 80.0 - 98.0 06/06/2020 [place] HEMATOLOGY MCH 27.3 27.0 - 31.0 06/06/2020 [place] HEMATOLOGY MCHC 32.3 32.0 - 36.0 06/06/2020 [place] HEMATOLOGY RDW 17.7 11.5 - 14.5 06/06/2020 [place] HEMATOLOGY Platelet 287 133 - 450 06/06/2020 [place] HEMATOLOGY MPV 8.4 7.4 - 10.4 06/06/2020 [place] CHEM PANEL Glucose Lvl 83 70 - 99 06/05/2020 [place] CHEM PANEL BUN 32 7 - 22 06/05/2020 [place] CHEM PANEL Creatinine Lvl 0.57 0.50 - 1.40 06/05/2020 [place] CHEM PANEL Sodium Lvl 146 135 - 145 06/05/2020 [place] CHEM PANEL Potassium Lvl 4.1 3.5 - 5.1 06/05/2020 [place] CHEM PANEL Chloride Lvl 115 95 - 109 06/05/2020 [place] CHEM PANEL CO2 25 24 - 32 06/05/2020 [place] CHEM PANEL Calcium Lvl 7.8 8.5 - 10.5 06/05/2020 [place] CHEM PANEL AGAP 10.1 10.0 - 20.0 06/05/2020 [place] CHEM PANEL eGFR 96 06/05/2020 Result Comment: [...] should be multiplied by the estimated BMI. [place] HEMATOLOGY WBC 18.3 3.7 - 10.4 06/05/2020 [place] HEMATOLOGY RBC 3.68 4.20 - 5.40 06/05/2020 [place] HEMATOLOGY Hgb 9.8 12.0 - 16.0 06/05/2020 [place] HEMATOLOGY Hct 31.1 36.0 - 48.0 06/05/2020 [place] HEMATOLOGY MCV 84.5 80.0 - 98.0 06/05/2020 [place] HEMATOLOGY MCH 26.7 27.0 - 31.0 06/05/2020 [place] HEMATOLOGY MCHC 31.6 32.0 - 36.0 06/05/2020 [place] HEMATOLOGY RDW 16.7 11.5 - 14.5 06/05/2020 [place] HEMATOLOGY Platelet 295 133 - 450 06/05/2020 [facility] HEMATOLOGY MPV 8.8 7.4 - 10.4 06/05/2020 [facility] HEMATOLOGY Segs 85.2 45.0 - 75.0 06/05/2020 [facility] HEMATOLOGY Lymphocytes 8.8 20.0 - 40.0 06/05/2020 [facility] HEMATOLOGY Monocytes 3.8 2.0 - 12.0 06/05/2020 [place] HEMATOLOGY Eosinophils 1.8 0.0 - 4.0 06/05/2020 [place] HEMATOLOGY Basophils 0.4 0.0 - 1.0 06/05/2020 [place] HEMATOLOGY Neutrophils # 15.6 1.5 - 8.1 06/05/2020 [place] HEMATOLOGY Lymphocytes # 1.6 1.0 - 5.5 06/05/2020 [place] HEMATOLOGY Monocytes # 0.7 0.0 - 0.8 06/05/2020 [facility] HEMATOLOGY Eosinophils # 0.3 0.0 - 0.5 06/05/2020 [facility] HEMATOLOGY Basophils # 0.1 0.0 - 0.2 06/05/2020 [facility] HEMATOLOGY WBC 22.5 3.7 - 10.4 06/04/2020 [facility] HEMATOLOGY RBC 3.93 4.20 - 5.40 06/04/2020 [facility] HEMATOLOGY Hgb 10.4 12.0 - 16.0 06/04/2020 [facility] HEMATOLOGY Hct 33.1 36.0 - 48.0 06/04/2020 [facility] HEMATOLOGY MCV 84.3 80.0 - 98.0 06/04/2020 [facility] HEMATOLOGY MCH 26.4 27.0 - 31.0 06/04/2020 [facility] HEMATOLOGY MCHC 31.3 32.0 - 36.0 06/04/2020 [facility] HEMATOLOGY RDW 17.0 11.5 - 14.5 06/04/2020 [facility] HEMATOLOGY Platelet 344 133 - 450 06/04/2020 [facility] HEMATOLOGY MPV 8.7 7.4 - 10.4 06/04/2020 [facility] HEMATOLOGY Segs 91.0 45.0 - 75.0 06/04/2020 [facility] HEMATOLOGY Lymphocytes 4.2 20.0 - 40.0 06/04/2020 [facility] HEMATOLOGY Monocytes 3.3 2.0 - 12.0 06/04/2020 [facility] HEMATOLOGY Eosinophils 1.4 0.0 - 4.0 06/04/2020 [facility] HEMATOLOGY Basophils 0.1 0.0 - 1.0 06/04/2020 [facility] HEMATOLOGY Neutrophils # 20.5 1.5 - 8.1 06/04/2020 [facility] HEMATOLOGY Lymphocytes # 1.0 1.0 - 5.5 06/04/2020 [facility] HEMATOLOGY Monocytes # 0.7 0.0 - 0.8 06/04/2020 [facility] HEMATOLOGY Eosinophils # 0.3 0.0 - 0.5 06/04/2020 [facility] CHEM PANEL Glucose Lvl 151 70 - 99 06/03/2020 [facility] CHEM PANEL BUN 40 7 - 22 06/03/2020 [facility] CHEM PANEL Creatinine Lvl 0.81 0.50 - 1.40 06/03/2020 [facility] CHEM PANEL Sodium Lvl 145 135 - 145 06/03/2020 [facility] CHEM PANEL Potassium Lvl 5.1 3.5 - 5.1 06/03/2020 [facility] CHEM PANEL Chloride Lvl 118 95 - 109 06/03/2020 [facility] CHEM PANEL CO2 21 24 - 32 06/03/2020 [facility] CHEM PANEL Calcium Lvl 8.5 8.5 - 10.5 06/03/2020 [facility] CHEM PANEL Total Protein 7.2 6.4 - 8.4 06/03/2020 [facility] CHEM PANEL Albumin Lvl 2.1 3.5 - 5.0 06/03/2020 [facility] CHEM PANEL ALT 62 0 - 65 06/03/2020 [facility] CHEM PANEL AST 43 0 - 37 06/03/2020 [facility] CHEM PANEL Alk Phos 205 39 - 136 06/03/2020 [facility] CHEM PANEL Bili Total 0.4 0.2 - 1.3 06/03/2020 [facility] CHEM PANEL AGAP 11.1 10.0 - 20.0 06/03/2020 [facility] CHEM PANEL B/C Ratio 49 6 - 25 06/03/2020 [facility] CHEM PANEL Globulin 5.1 2.7 - 4.2 06/03/2020 [facility] CHEM PANEL A/G Ratio 0.4 0.7 - 1.6 06/03/2020 [facility] CHEM PANEL eGFR 86 06/03/2020 Result Comment: [...] should be multiplied by the estimated BMI. [facility] HEMATOLOGY Basophils # 0.1 0.0 - 0.2 06/03/2020 [facility] HEMATOLOGY Hypochrom 1+ (06/03/20 5:08 AM) None Seen 06/03/2020 [facility] TOXICOLOGY Vanco Tr 23.9 06/02/2020 [facility] [place] [id number] 06/02/2020 [facility] CHEM PANEL Magnesium Lvl 2.5 1.8 - 2.4 06/02/2020 [facility] CHEM PANEL Phosphorus 2.6 2.5 - 4.5 06/02/2020 [facility] CHEM PANEL Glucose Lvl 107 70 - 99 06/02/2020 [facility] CHEM PANEL BUN 38 7 - 22 06/02/2020 [facility] CHEM PANEL Creatinine Lvl 0.78 0.50 - 1.40 06/02/2020 [facility] CHEM PANEL Sodium Lvl 146 135 - 145 06/02/2020 [facility] CHEM PANEL Potassium Lvl 3.8 3.5 - 5.1 06/02/2020 [facility] CHEM PANEL Chloride Lvl 113 95 - 109 06/02/2020 [facility] CHEM PANEL CO2 27 24 - 32 06/02/2020 [facility] CHEM PANEL Calcium Lvl 8.2 8.5 - 10.5 06/02/2020 [facility] CHEM PANEL Total Protein 6.6 6.4 - 8.4 06/02/2020 [facility] CHEM PANEL Albumin Lvl 1.8 3.5 - 5.0 06/02/2020 [facility] CHEM PANEL ALT 65 0 - 65 06/02/2020 [facility] CHEM PANEL AST 50 0 - 37 06/02/2020 [facility] CHEM PANEL Alk Phos 185 39 - 136 06/02/2020 [facility] CHEM PANEL Bili Total 0.5 0.2 - 1.3 06/02/2020 [facility] CHEM PANEL AGAP 9.8 10.0 - 20.0 06/02/2020 [facility] CHEM PANEL B/C Ratio 49 6 - 25 06/02/2020 [facility] CHEM PANEL Globulin 4.8 2.7 - 4.2 06/02/2020 [facility] CHEM PANEL A/G Ratio 0.4 0.7 - 1.6 06/02/2020 [facility] CHEM PANEL eGFR 90 06/02/2020 Result Comment: [...] should be multiplied by the estimated BMI. [facility] HEMATOLOGY PTT 34.8 22.9 - 35.8 06/02/2020 [facility] HEMATOLOGY PT 17.5 12.0 - 14.7 06/02/2020 [facility] HEMATOLOGY INR 1.42 0.85 - 1.17 06/02/2020 [facility] HEMATOLOGY WBC 22.3 3.7 - 10.4 06/02/2020 [facility] HEMATOLOGY RBC 3.58 4.20 - 5.40 06/02/2020 [facility] HEMATOLOGY Hgb 9.6 12.0 - 16.0 06/02/2020 [facility] HEMATOLOGY Hct 29.7 36.0 - 48.0 06/02/2020 [facility] HEMATOLOGY MCV 83.1 80.0 - 98.0 06/02/2020 [facility] HEMATOLOGY MCH 26.8 27.0 - 31.0 06/02/2020 [facility] HEMATOLOGY MCHC 32.2 32.0 - 36.0 06/02/2020 [facility] HEMATOLOGY RDW 16.4 11.5 - 14.5 06/02/2020 [facility] HEMATOLOGY Platelet 309 133 - 450 06/02/2020 [facility] HEMATOLOGY MPV 8.7 7.4 - 10.4 06/02/2020 [facility] HEMATOLOGY Segs 94.0 45.0 - 75.0 06/02/2020 [facility] HEMATOLOGY Lymphocytes 2.4 20.0 - 40.0 06/02/2020 [facility] HEMATOLOGY Monocytes 3.6 2.0 - 12.0 06/02/2020 [facility] HEMATOLOGY Neutrophils # 21.0 1.5 - 8.1 06/02/2020 [facility] HEMATOLOGY Lymphocytes # 0.5 1.0 - 5.5 06/02/2020 [facility] HEMATOLOGY Monocytes # 0.8 0.0 - 0.8 06/02/2020 [facility] PARATHYROID PROFILE Ca Ion WB 1.09 1.05 - 1.25 06/02/2020 [facility] PARATHYROID PROFILE Ca Norm WB 1.09 1.05 - 1.25 06/02/2020 [facility] ELECTROLYTES Potassium Lvl 4.0 3.5 - 5.1 06/01/2020 [facility] CHEM PANEL Total Protein 6.7 6.4 - 8.4 06/01/2020 [facility] CHEM PANEL Albumin Lvl 1.8 3.5 - 5.0 06/01/2020 [facility] CHEM PANEL ALT 65 0 - 65 06/01/2020 [facility] CHEM PANEL AST 72 0 - 37 06/01/2020 [facility] CHEM PANEL Alk Phos 189 39 - 136 06/01/2020 [facility] CHEM PANEL Bili Total 0.3 0.2 - 1.3 06/01/2020 [facility] CHEM PANEL Bili Direct 0.1 0.0 - 0.3 06/01/2020 [facility] CHEM PANEL Bili Indirect 0.2 0.0 - 1.0 06/01/2020 [facility] CHEM PANEL Globulin 4.9 2.7 - 4.2 06/01/2020 [facility] CHEM PANEL A/G Ratio 0.4 0.7 - 1.6 06/01/2020 [facility] HEMATOLOGY WBC 27.6 3.7 - 10.4 06/01/2020 [facility] HEMATOLOGY RBC 3.11 4.20 - 5.40 06/01/2020 [facility] HEMATOLOGY Hgb 8.4 12.0 - 16.0 06/01/2020 [facility] HEMATOLOGY Hct 25.7 36.0 - 48.0 06/01/2020 [facility] HEMATOLOGY MCV 82.6 80.0 - 98.0 06/01/2020 [facility] HEMATOLOGY MCH 27.2 27.0 - 31.0 06/01/2020 [facility] HEMATOLOGY MCHC 32.9 32.0 - 36.0 06/01/2020 [facility] HEMATOLOGY RDW 16.5 11.5 - 14.5 06/01/2020 [facility] HEMATOLOGY Platelet 285 133 - 450 06/01/2020 [facility] HEMATOLOGY MPV 8.8 7.4 - 10.4 06/01/2020 [facility] HEMATOLOGY Plt Morph Jen l (06/01/20 4:19 AM) Normal 06/01/2020 [facility] HEMATOLOGY Segs 94.9 45.0 - 75.0 06/01/2020 [facility] HEMATOLOGY Lymphocytes 1.8 20.0 - 40.0 06/01/2020 [facility] HEMATOLOGY Monocytes 2.5 2.0 - 12.0 06/01/2020 [facility] HEMATOLOGY Eosinophils 0.2 0.0 - 4.0 06/01/2020 [facility] HEMATOLOGY Basophils 0.6 0.0 - 1.0 06/01/2020 [facility] HEMATOLOGY Neutrophils # 26.2 1.5 - 8.1 06/01/2020 [facility] HEMATOLOGY Lymphocytes # 0.5 1.0 - 5.5 06/01/2020 [facility] HEMATOLOGY Monocytes # 0.7 0.0 - 0.8 06/01/2020 [facility] HEMATOLOGY Eosinophils # 0.1 0.0 - 0.5 06/01/2020 [facility] HEMATOLOGY Basophils # 0.2 0.0 - 0.2 06/01/2020 [facility] HEMATOLOGY Polychrom Slight 06/01/2020 [facility] CHEM PANEL Glucose Lvl 102 70 - 99 06/01/2020 [facility] CHEM PANEL BUN 36 7 - 22 06/01/2020 [facility] CHEM PANEL Creatinine Lvl 0.84 0.50 - 1.40 06/01/2020 [facility] CHEM PANEL Sodium Lvl 144 135 - 145 06/01/2020 [facility] CHEM PANEL Potassium Lvl 3.5 3.5 - 5.1 06/01/2020 [facility] CHEM PANEL Chloride Lvl 111 95 - 109 06/01/2020 [facility] CHEM PANEL CO2 25 24 - 32 06/01/2020 [facility] CHEM PANEL Calcium Lvl 8.1 8.5 - 10.5 06/01/2020 [facility] CHEM PANEL Total Protein 6.4 6.4 - 8.4 06/01/2020 [facility] CHEM PANEL Albumin Lvl 1.7 3.5 - 5.0 06/01/2020 [facility] CHEM PANEL ALT 65 0 - 65 06/01/2020 [facility] CHEM PANEL AST 65 0 - 37 06/01/2020 [facility] CHEM PANEL Alk Phos 184 39 - 136 06/01/2020 [facility] CHEM PANEL Bili Total 0.3 0.2 - 1.3 06/01/2020 [facility] CHEM PANEL AGAP 11.5 10.0 - 20.0 06/01/2020 [facility] CHEM PANEL B/C Ratio 43 6 - 25 06/01/2020 [facility] CHEM PANEL Globulin 4.7 2.7 - 4.2 06/01/2020 [facility] CHEM PANEL A/G Ratio 0.4 0.7 - 1.6 06/01/2020 [facility] CHEM PANEL eGFR 83 06/01/2020 Result Comment: [...] should be multiplied by the estimated BMI. [facility] CHEM PANEL Magnesium Lvl 2.5 1.8 - 2.4 06/01/2020 [facility] CHEM PANEL Phosphorus 3.8 2.5 - 4.5 06/01/2020 [facility] HEMATOLOGY PTT 35.6 22.9 - 35.8 06/01/2020 [facility] HEMATOLOGY PT 17.4 12.0 - 14.7 06/01/2020 [facility] HEMATOLOGY INR 1.41 0.85 - 1.17 06/01/2020 [facility] PARATHYROID PROFILE Ca Ion WB 1.10 1.05 - 1.25 06/01/2020 [facility] PARATHYROID PROFILE Ca Norm WB 1.11 1.05 - 1.25 06/01/2020 [place] HEMATOLOGY Hgb 8.3 12.0 - 16.0 05/31/2020 [facility] HEMATOLOGY Hct 26.0 36.0 - 48.0 05/31/2020 [facility] CEFTAZIDIME:SUSC:PT:ISOLATE:ORDQN:KEISHA Gram Stain Report Less Than 25 Squamous Epithelial Cells/Lpf Many WBC's Few Gram Positive Rods Rare Gram Positive Cocci Good Quality Specimen 05/31/2020 [facility] CEFTAZIDIME:SUSC:PT:ISOLATE:ORDQN:KEISHA Culture: Respiratory w/Gram Stain Many Pseudomonas aeruginosa , Multi-drug Resistant Organism Many Escherichia coli , Upon supplemental testing, this organism was confirmed to produce a carbapenamase. Multi-drug Resistant Organism Normal Respiratory Albaro Isolated 05/31/2020 [facility] CEFTAZIDIME:SUSC:PT:ISOLATE:ORDQN:KEISHA Escherichia coli Escherichia coli 05/31/2020 [facility] CEFTAZIDIME:SUSC:PT:ISOLATE:ORDQN:KEISHA Pseudomonas aeruginosa Pseudomonas aeruginosa 05/31/2020 [facility] Gram Stain Report Less Than 25 Sq uamous Epithelial Cells/Lpf Many WBC's Few Gram Positive Rods Rare Gram Positive Cocci Good Quality Specimen 05/31/2020 [facility] Culture: Respiratory w/Gram Stain M any Gram Negative Rods Identification And Sensitivity Pending . Further Testing In Progress 05/31/2020 [facility] BACTERIAL - SEROLOGY MRSA by PCR Positive 2 *ABN* (05/31/20 4:44 PM) 05/31/2020 Result Comment: "Significant Findings called to Alla Traore at 06/01/2020 08:18 by LF. Read Back OK." [facility] CHEM PANEL Ammonia 14.0 <=45.0 uMol/L 05/31/2020 [place] CHEM PANEL Lipase Lvl 46 73 - 393 05/31/2020 [facility] BLOOD BANK RESULTS RBC product Product available (05/31/20 5:37 AM) 05/31/2020 [facility] ANEMIA STUDY Ferritin Lvl 6998 5 - 204 05/31/2020 [place] CHEM PANEL Glucose Lvl 116 70 - 99 05/31/2020 [place] CHEM PANEL BUN 35 7 - 22 05/31/2020 [place] CHEM PANEL Creatinine Lvl 0.98 0.50 - 1.40 05/31/2020 [place] CHEM PANEL Sodium Lvl 142 135 - 145 05/31/2020 [place] CHEM PANEL Chloride Lvl 107 95 - 109 05/31/2020 [facility] CHEM PANEL CO2 28 24 - 32 05/31/2020 [facility] CHEM PANEL AGAP 11.4 10.0 - 20.0 05/31/2020 [facility] CHEM PANEL Calcium Lvl 8.2 8.5 - 10.5 05/31/2020 [facility] CHEM PANEL B/C Ratio 36 6 - 25 05/31/2020 [facility] CHEM PANEL eGFR 69 05/31/2020 Result Comment: [...] should be multiplied by the estimated BMI. [facility] CHEM PANEL Magnesium Lvl 2.6 1.8 - 2.4 05/31/2020 [facility] CHEM PANEL Phosphorus 4.2 2.5 - 4.5 05/31/2020 [facility] CHEM PANEL Ammonia 13.0 <=45.0 uMol/L 05/31/2020 [facility] HEMATOLOGY WBC 26.2 3.7 - 10.4 05/31/2020 [facility] HEMATOLOGY RBC 2.61 4.20 - 5.40 05/31/2020 [facility] HEMATOLOGY MCV 82.7 80.0 - 98.0 05/31/2020 [facility] HEMATOLOGY MCH 26.0 27.0 - 31.0 05/31/2020 [facility] HEMATOLOGY MCHC 31.5 32.0 - 36.0 05/31/2020 [facility] HEMATOLOGY RDW 17.5 11.5 - 14.5 05/31/2020 [facility] HEMATOLOGY Platelet 296 133 - 450 05/31/2020 [facility] HEMATOLOGY MPV 8.8 7.4 - 10.4 05/31/2020 [facility] HEMATOLOGY PT 17.1 12.0 - 14.7 05/31/2020 [facility] HEMATOLOGY INR 1.38 0.85 - 1.17 05/31/2020 [facility] HEMATOLOGY PTT 40.3 22.9 - 35.8 05/31/2020 [facility] HEMATOLOGY Segs 97.6 45.0 - 75.0 05/31/2020 [facility] HEMATOLOGY Lymphocytes 1.1 20.0 - 40.0 05/31/2020 [facility] HEMATOLOGY Monocytes 1.2 2.0 - 12.0 05/31/2020 [facility] HEMATOLOGY Basophils 0.1 0.0 - 1.0 05/31/2020 [facility] HEMATOLOGY Neutrophils # 25.5 1.5 - 8.1 05/31/2020 [facility] HEMATOLOGY Lymphocytes # 0.3 1.0 - 5.5 05/31/2020 [facility] HEMATOLOGY Monocytes # 0.3 0.0 - 0.8 05/31/2020 [facility] PARATHYROID PROFILE Ca Ion WB 1.05 1.05 - 1.25 05/31/2020 [place] PARATHYROID PROFILE Ca Norm WB 1.06 1.05 - 1.25 05/31/2020 [facility] ANEMIA STUDY Iron 23 45 - 160 05/31/2020 Result Comment: Lab test performed by:<b r/>edo FRUITHURST
[address] [place] [address]
[place] [address]
MANAS ANGEL MD [facility] ANEMIA STUDY TIBC 126 250 - 450 05/31/2020 [facility] ANEMIA STUDY % [place] 18 16 - 45 05/31/2020 [facility] CHEM PANEL Lactic Acid Lvl 1.2 0.5 - 2.2 05/31/2020 [facility] BLOOD BANK RESULTS RBC product Product available 6 (05/30/20 8:03 PM) 05/31/2020 Result Comment: 05/30/2020 2 1:59 [id number]
Blood available, notified Huyen Hernandez at 05/30/2020 21:59 by WX. [facility] IMMUNOLOGY Coronavirus (COVID-19) NA A Not Detected (05/30/20 7:24 PM) Not Detected 05/31/2020 [facility] CIPROFLOXACIN:SUSC:PT:ISOLATE:ORDQN:KEISHA Gram Stain Report Few WBC's Many Gram Negative Rods Many Gram Positive Cocci In Pairs 05/31/2020 [facility] CIPROFLOXACIN:SUSC:PT:ISOLATE:ORDQN:KEISHA Culture: Wound/Abscess w/Gram Stain Moderate Proteus mirabilis ESBL , Multi- drug Resistant Organism Few Escherichia coli , Upon supplemental testing, this organism was confirmed to produce a carbapenamase. , Multi-drug Resistant Organism Few Gram Pos Rods Suggestive of Diphtheroids 05/31/2020 [facility] CIPROFLOXACIN:SUSC:PT:ISOLATE:ORDQN:KEISHA Proteus mirabilis ESBL Proteus mirabilis ESBL 05/31/2020 [facility] CIPROFLOXACIN:SUSC:PT:ISOLATE:ORDQN:KEISHA Escherichia coli Escherichia coli 05/31/2020 [facility] URINE AND STOOL Occult Bld Stl Negative (05/30/20 7:17 PM) Negative 05/31/2020 [facility] FLUCONAZOLE:SUSC:PT:ISOLATE:ORDQN:GRADIENT STRIP Culture: Catheter Tip 50 CFU Deya parapsilosis 05/31/2020 [facility] FLUCONAZOLE:SUSC:PT:ISOLATE:ORDQN:GRADIENT STRIP Deya parapsilosis Deya parapsilosis 05/31/2020 [facility] Culture: Catheter Tip 50 CFU Candid a parapsilosis Susceptibility To Follow 05/31/2020 [facility] BLOOD BANK RESULTS ABO/Rh O POS 05/30/2020 [facility] BLOOD BANK RESULTS Antibody Scrn Negative (05/30/20 5:54 PM) 05/30/2020 [facility] CARDIAC ENZYMES Troponin-I 0.02 0.00 - 0.40 05/30/2020 [facility] CHEM PANEL Procalcitonin Lvl 4.14 0.00 - 0.10 05/30/2020 Result Comment: Critical Result(s) pritchett d to
at 05/30/2020 18:49 by
. Read back OK. [facility] CHEM PANEL Lactic Acid Lvl 2.8 0.5 - 2.2 05/30/2020 [facility] HEMATOLOGY RBC Morph Jen l (05/30/20 5:54 PM) Normal 05/30/2020 [facility] HEMATOLOGY Bands 6.0 0.0 - 11.0 05/30/2020 [facility] HEMATOLOGY Metamyelocytes 2.0 0.0 - 1.0 05/30/2020 [facility] HEMATOLOGY Tot Cell Ct 100 05/30/2020 [facility] HEMATOLOGY Large Plt Moder ate *ABN* (05/30/20 5:54 PM) None Seen 05/30/2020 [facility] HEMATOLOGY Fibrinogen Lvl 841 230 - 510 05/30/2020 [facility] HEMATOLOGY D-Dimer 14.64 05/30/2020 [place] URINE AND STOOL UA Fine Gran 0-2 /LPF None Seen /LPF 10/30/2018 [facility] URINE AND STOOL UA Hyal Cast 6-10 (10/29/18 11:39 PM) 0 - 2 10/30/2018 [facility] URINE AND STOOL UA Mucus Few /LPF None Seen /LPF 10/30/2018 [facility] URINE AND STOOL UA Bacteria Few /HPF None Seen /HPF 10/30/2018 [facility] URINE AND STOOL UA RBC 3-5 /HPF 0 - 2 10/30/2018 [facility] URINE AND STOOL UA WBC 3-5 /HPF None Seen /HPF 10/30/2018 [facility] URINE AND STOOL UA Sq Epi Few /LPF Few /LPF 10/30/2018 [facility] URINE AND STOOL UA Turbidity Slight Cloudy (10/29/18 11:39 PM) Clear 10/30/2018 [facility] URINE AND STOOL UA Spec Grav >=1.030 *ABN* (10/29/18 11:39 PM) <=1.030 10/30/2018 [facility] URINE AND STOOL UA Color Yellow *NA* (10/29/18 11:39 PM) Yellow 10/30/2018 [facility] URINE AND STOOL UA Blood Negative (10/29/18 11:39 PM) Negative 10/30/2018 [facility] URINE AND STOOL UA Leuk Est Negative (10/29/18 11:39 PM) Negative 10/30/2018 [facility] URINE AND STOOL UA Urobilinogen 0.2 0.1 - 1.0 10/30/2018 [facility] URINE AND STOOL UA Nitrite Negative (10/29/18 11:39 PM) Negative 10/30/2018 [facility] URINE AND STOOL UA pH 5.5 5.0 - 8.0 10/30/2018 [facility] URINE AND STOOL UA Ketones Negative *NA* (10/29/18 11:39 PM) Negative 10/30/2018 [facility] URINE AND STOOL UA Bili Negative *NA* (10/29/18 11:39 PM) Negative 10/30/2018 [facility] URINE AND STOOL UA Protein 30 mg/dL Negative mg/dL 10/30/2018 [facility] URINE AND STOOL UA Glucose Negative (10/29/18 11:39 PM) Negative 10/30/2018 [facility] CARDIAC ENZYMES Troponin-I 0.03 0.00 - 0.40 10/30/2018 [facility] CHEM PANEL Lactic Acid Lvl 1.5 0.5 - 2.2 10/30/2018 [facility] ELECTROLYTES AGAP 11.9 10.0 - 20.0 10/30/2018 [facility] ELECTROLYTES eGFR 34 10/30/2018 Result [...] should be multiplied by the estimated BMI. [facility] ELECTROLYTES Glucose Lvl 124 70 - 99 10/30/2018 [facility] ELECTROLYTES BUN 12 7 - 22 10/30/2018 [facility] ELECTROLYTES Potassium Lvl 3.9 3.5 - 5.1 10/30/2018 [facility] ELECTROLYTES Sodium Lvl 144 135 - 145 10/30/2018 [facility] ELECTROLYTES Creatinine Lvl 1.1 6 0.50 - 1.40 10/30/2018 [facility] ELECTROLYTES CO2 30 24 - 32 10/30/2018 [facility] ELECTROLYTES Chloride Lvl 106 95 - 109 10/30/2018 [facility] ELECTROLYTES Calcium Lvl 8.8 8.5 - 10.5 10/30/2018 [facility] HEMATOLOGY MCHC 32.2 32.0 - 36.0 10/30/2018 [facility] HEMATOLOGY MPV 9.0 7.4 - 10.4 10/30/2018 [facility] HEMATOLOGY RDW 14.1 11.5 - 14.5 10/30/2018 [facility] HEMATOLOGY MCH 29.3 27.0 - 31.0 10/30/2018 [facility] HEMATOLOGY Hct 36.6 36.0 - 48.0 10/30/2018 [facility] HEMATOLOGY Platelet 215 133 - 450 10/30/2018 [facility] HEMATOLOGY WBC 12.0 3.7 - 10.4 10/30/2018 [facility] HEMATOLOGY RBC 4.03 4.20 - 5.40 10/30/2018 [facility] HEMATOLOGY MCV 90.8 80.0 - 98.0 10/30/2018 [facility] HEMATOLOGY Hgb 11.8 12.0 - 16.0 10/30/2018 [facility] HEMATOLOGY Basophils 0.8 0.0 - 1.0 10/30/2018 [facility] HEMATOLOGY Eosinophils 1.6 0.0 - 4.0 10/30/2018 [facility] HEMATOLOGY Monocytes 6.6 2.0 - 12.0 10/30/2018 [facility] HEMATOLOGY Lymphocytes 16.1 20.0 - 40.0 10/30/2018 [facility] HEMATOLOGY Segs 74.9 45.0 - 75.0 10/30/2018 [facility] HEMATOLOGY Basophils # 0.1 0.0 - 0.2 10/30/2018 [facility] HEMATOLOGY Eosinophils # 0.2 0.0 - 0.5 10/30/2018 [facility] HEMATOLOGY Monocytes # 0.8 0.0 - 0.8 10/30/2018 [facility] HEMATOLOGY Lymphocytes # 1.9 1.0 - 5.5 10/30/2018 [facility] HEMATOLOGY Neutrophils # 9.0 1.5 - 8.1 10/30/2018 [facility] Pathology Reports No Data Provided [...] the level of the cavoatrial junction. 06/06/2020 [facility] Abdomen AP DX Abdomen AP DX 3:00 CDT Clinical: - Abdominal distention ileus Comparison: No prior exam. Findings: Portions of stomach, small bowel, and colon containing gas. Rectal gas is present. No gross pneumoperitoneum is seen on this portable exam. Gastrotomy tube is noted. Osteopenia is present.. Impression: Findings compatible with ileus. 06/02/2020 [facility] Chest Pulmonary Embolism CTA Chest Pulmonary Embolism [...] Please see additional comments above . 05/31/2020 [facility] Liver US EXAM: Liver US DATE: 05/31/2020 [...] No sonographic evidence for acute cholecystitis. 05/31/2020 [facility] Ext Lower Venous Doppler Bilat US EXAM: [...] the visible BILATERAL lower extremity veins. 05/31/2020 [facility] Chest 1view DX Chest 1view DX 05/31/2020 3:00 CDT Clinical: Pneumonia Comparison: 05/30/2020 exam. Findings: The right lung consolidation is mildly improved. The tracheostomy tube is stable. The heart size is within normal limits for portable technique. Stable left cardiac pacing device. Impression: Mildly improved right lung consolidation. 05/31/2020 [facility] ED Abdomen/Pelvis IV contrast only CT ED [...] necrosis . See further details above. 05/30/2020 [facility] Brain wo contrast CT EXAMINATI ON: Noncontrast [...] seen in the setting of mastoiditis. 05/30/2020 [facility] Chest 1view DX SINGLE VIEW RAEANN ST [...] process, including viral pneumonia. Interval tracheostomy. 05/30/2020 [facility] Chest 1view DX EXAM: XR CHEST 1 VIEW DATE: 10/29/2018 18:53 INSTALLATION MANAGER INDICATION: - dyspnea hx copd, cough COMPARISON: [...] limits. IMPRESSION: No acute radiographic abnormality 10/29/2018 [facility] Consultation Notes No Data Provided for This Section Discharge Summaries No Data Provided for This Section History and Physicals No Data Provided for This Section Vital Signs Vital Sign Value Date Comments Source Systolic (mm Hg) 105 06/06/2020 [facility] Diastolic (mm Hg) 55 06/06/2020 [facility] Respitory Rate 20 06/06/2020 [facility] Heart Rate 69 06/06/2020 [facility] Systolic (mm Hg) 119 06/06/2020 [facility] Diastolic (mm Hg) 60 06/06/2020 [facility] Respitory Rate 20 06/06/2020 [facility] Heart Rate 74 06/06/2020 [facility] [place] Heart Rate 77 06/06/2020 [facility] Respitory Rate 18 06/06/2020 [facility] Systolic (mm Hg) 142 06/06/2020 [facility] Diastolic (mm Hg) 66 06/06/2020 [facility] Temperature Oral (F) 98.6 F 06/05/2020 [facility] [place] Temperature Oral (F) 98.7 F 06/05/2020 [facility] [place] Temperature Oral (F) 98.1 F 06/04/2020 [facility] Heart Rate 71 06/03/2020 [facility] Respitory Rate 21 06/03/2020 [facility] Systolic (mm Hg) 151 06/03/2020 [facility] [place] Diastolic (mm Hg) 68 06/03/2020 [facility] Heart Rate 77 06/03/2020 [facility] [place] Respitory Rate 22 06/03/2020 [facility] Systolic (mm Hg) 169 06/03/2020 [facility] [place] Diastolic (mm Hg) 75 06/03/2020 [facility] Heart Rate 70 06/02/2020 [facility] Systolic (mm Hg) 156 06/02/2020 [facility] Diastolic (mm Hg) 76 06/02/2020 [facility] Respitory Rate 26 06/02/2020 [place] Height 165.1 cm 06/01/2020 [place] Height 165.1 cm 06/01/2020 [place] Height 165.1 cm 06/01/2020 [place] Weight 59.6 05/31/2020 [place] BMI Calculated 21.87 05/31/2020 [place] Temperature Oral (F) 99.1 F 05/31/2020 [place] BMI Calculated 26.35 05/30/2020 [place] Weight 61.2 05/30/2020 [facility] Systolic (mm Hg) 155 10/30/2018 [facility] Diastolic (mm Hg) 73 10/30/2018 [facility] Temperature Oral (F) 98.7 F 10/30/2018 [facility] Heart Rate 63 10/30/2018 [facility] Respitory Rate 18 10/30/2018 [facility] Respitory Rate 18 10/30/2018 [facility] Systolic (mm Hg) 156 10/30/2018 [facility] Diastolic (mm Hg) 74 10/30/2018 [facility] Temperature Oral (F) 99.2 F 10/30/2018 [facility] Heart Rate 79 10/30/2018 [facility] Temperature Oral (F) 97.9 F 10/30/2018 [facility] Heart Rate 73 10/30/2018 [facility] Systolic (mm Hg) 156 10/30/2018 [facility] Diastolic (mm Hg) 74 10/30/2018 [facility] Respitory Rate 18 10/30/2018 [facility] BMI Calculated 25.56 10/30/2018 [facility] Weight 61.364 10/30/2018 [facility] Height 154.94 cm 10/30/2018 [facility] Height 61 1 Lovely Najam [...] Date Status Source Rheumatology Clinic shoulder/back pain [id number] 11/24/2016 11/24/2016 [facility] Observation [id number] Wisam Lee 10/30/2018 10/30/2018 [facility] [place] Inpatient [id number] Kim Damon 05/30/2020 06/07/2020 [place] Procedures Procedure Code Date Perfomer Comments Source Abdominal hysterectomy [id number] 10/04/1972 [facility], [place] Assessment and Plan Assessment and Plan Date [...] Impression and Plan Diagnosis Toxic metabolic encephalopathy (ZAU53-[id number] G92, Working, Medical). Sacral decubitus ulcer, stage IV (SPV74-DE L89.154, Working, Medical). Protein-calorie malnutrition, severe (KBJ37-JJ E43, Working, Medical). Pneumonia (XOV77-CY J18.9, Working, Medical). Chronic respiratory failure (EAR04-RI J96.10, Working, Medical). Acute sepsis (PRO80-FL A41.9, Working, Medical). Patient is a facility [...] due to anemia. Inpatient ICU status. 06/03/2020 [facility] Extracted from:Title: History and Physic al Author: Theresa Brown DO Date: 10/30/18 68 year old female with shortness of david ath and dyspnea on exertion. 1.COPD exacerbation(J44.1) Continue with duonebs. Continue with oxygen and wean to room air. Hold coreg.Discharge with inhalers and follow up with pulmonary for outpatient pulmonary function tests. 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 [place] Physician Hospitalist is primary service. Please page [phone] for questions. Ambulatory DC pending medical clearance. 10/30/2018 [facility] Plan of Care No Data Provided for This Section Social History Social History Date Source Social History TypeResponse Alcohol Alcohol use interferes with work or home: No. Substance Abuse IV drug use: No. Smoking Status Never smoker; Exposure to Tobacco Smoke None; Cigarette Smoking Last 365 Days No; Reg Smoking Cessation Counseling No entered on: 10/29/18 10/30/2018 [facility] Social History TypeResponse Alcohol Alcohol use interferes with work or home: No. Substance Abuse IV drug use: No. Smoking Status Never smoker; Exposure to Tobacco Smoke None; Cigarette Smoking Last 365 Days No; Reg Smoking Cessation Counseling No entered on: 10/29/18 10/30/2018 [place] Social History ElementQualifiersDate Rep orted Smoking status: . Are you a: Current Smoker 20 Years Nov 24, 2016 alcohol no. Nov 24, 2016 11/24/2016 [facility] Family History No Data Provided for This Section Advance Directives No Data Provided for This Section Functional Status No Data Provided for This Section
[2020-09-01] MEDS ORDERED: DIATRIZOATE MEGL/DIATRIZOA SOD 30 ML BTL PO ONE (10:41)
--- NOTE | 2020-09-01 11:05 | Emergency Department Note ---
History of Present Illnes History of Present Illness Chief Complaint: Abdominal Complaints History of Present Illness This is a 70 year old female SENT FROM [facility] FOR PEG REPLACEMENT. 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 Any updates have been documented here. 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 PNEUMONIA Past Surgical History: Hysterectomy, Pacer/AICD Other Surgery: TRACH PEG Social History Smoking Cessation: Unknown if ever smoked Counseling Performed: No Alcohol Use: None Any Illegal Drug Use: No Physically hurt or threatened: No Family History Family history of heart diseas: No Other Any Pre-Existing Lines (PICC,: No Review of Systems Review of Systems Constitutional: Reports no symptoms EENTM: Reports no symptoms Cardiovascular: Reports no symptoms Respiratory: Reports no symptoms Gastrointestinal: Reports as per HPI Genitourinary: Reports no symptoms Musculoskeletal: Reports no symptoms Integumentary: Reports no symptoms Neurological: Reports no symptoms Psychological: Reports no symptoms Endocrine: Reports no symptoms Hematological/Lymphatic: Reports no symptoms Physical Exam Related Data Allergies: Coded Allergies: Penicillins (Verified Allergy, Unknown, 09/01/20) aspirin (Verified Allergy, Unknown, 06/11/20) Triage Vital Signs Vital Signs Date Time Temp Pulse Resp B/P (MAP) Pulse Ox O2 Delivery O2 Flow Rate FiO2 09/01/20 10:07 98.5 88 18 141/127 100 Mechanical Ventilator 09/01/20 10:15 27.0 50 Vital signs reviewed: Yes Physical Exam CONSTITUTIONAL Constitutional: Present well-developed, Present well-nourished HENT HENT: Present normocephalic, Present atraumatic, Present oropharynx clear/moist, Present nose normal HENT L/R: Present left ext ear normal, Present right ext ear normal EYES Eyes: Reports PERRL, Reports conjunctivae normal NECK Neck: Present ROM normal, Present other (tracheostomy) PULMONARY Pulmonary: Present effort normal, Present breath sounds normal CARDIOVASCULAR Cardiovascular: Present regular rhythm, Present heart sounds normal, Present capillary refill normal, Present normal rate GASTROINTESTINAL Abdominal: Present soft, Present nontender, Present bowel sounds normal, Present other (24FR tube out, brought in bag) GENITOURINARY Genitourinary: Present exam deferred SKIN Skin: Present warm, Present dry MUSCULOSKELETAL Musculoskeletal: Present ROM normal NEUROLOGICAL Neurological: Present alert, Present oriented x 3, Present no gross motor or sensory deficits PSYCHOLOGICAL Psychological: Present mood/affect normal, Present judgement normal Results Imaging Imaging results reviewed: Yes Impressions EXAM: Abdomen Radiograph 1 View(s) INDICATION: ^GASTRO FOR G-TUBE REPLACEMENT ^[id number] ^[id number] COMPARISON: None FINDINGS: Lines/tubes: There is a G-tube in place. There is contrast material seen outlining the gastric folds. Findings are suggestive of intragastric positioning of the G-tube. Nonobstructive bowel gas pattern. No abnormal calcification. Multilevel degenerative changes of the spine. No focal soft tissue abnormality. IMPRESSION: Contrast material outlining the gastric folds is suggestive of intragastric positioning of the G-tube. Signed by: Reece Bradley MD on 09/01/2020 11:11 AM Procedures Feeding Tube Replacement Type of tube: gastrostomy Prior insertion site: clean Tube used for reinsertion: Bard Tube size (F): 22 Balloon size (mL): 6 Verification of placement: auscultation, abdominal xray, gastrografin injection Tube secured by: tape/dressing Patient tolerated procedure: well Additional comments unable to pass 24FR even with gentle dilation of stoma with hemostats, able to pass 22FR Assessment & Plan Medical Decision Making MDM REPLACE G-TUBE Reassessment Reassessment DC BACK TO [facility] Assessment & Plan Final Impression: (1) Encounter for feeding tube placement Depart Disposition: [facility] ([facility]) Last Vital Signs Date Time Temp Pulse Resp B/P (MAP) Pulse Ox O2 Delivery O2 Flow Rate FiO2 09/01/20 10:21 88 18 97/74 100 Ventilator 60 09/01/20 10:15 27.0 09/01/20 10:07 98.5 Home Meds Active Scripts Pantoprazole Sodium* (PROTONIX) 40 Mg Tablet.dr, 40 MG PEG Q12H for 30 Days, TAB Prov:VIPUL IZQUIERDO MD 07/29/20 Zinc Sulfate (ZINC SULFATE) 220 Mg Capsule, 220 MG PO DAILY for 10 Days Prov:VIPUL IZQUIERDO MD 07/29/20 Sucralfate (SUCRALFATE) 1 G/10 Ml Susp, 1 G NG ACHS for 30 Days Prov:VIPUL IZQUIERDO MD 07/29/20 Olanzapine (ZYPREXA) 5 Mg Tablet, 2.5 MG PO HS for 30 Days Prov:VIPUL IZQUIERDO MD 07/29/20 Multivits W-Min/Ferrous Gluc (MULTIVITAMIN-MINERAL LIQUID) 9 Mg/15 Ml Liquid, 15 ML GT DAILY for 30 Days Prov:VIPUL IZQUIERDO MD 07/29/20 Midodrine Hcl (MIDODRINE HCL) 5 Mg Tablet, 10 MG PO Q6H for 30 Days Prov:VIPUL IZQUIERDO MD 07/29/20 Gabapentin (GABAPENTIN) 100 Mg Capsule, 100 MG PO TID for 30 Days Prov:VIPUL IZQUIERDO MD 07/29/20 [Folic Acid] 1 MG TAB No Conflict Check, 1 MG PO DAILY for 30 Days Prov:VIPUL IZQUIERDO MD 07/29/20 Ferrous Sulfate (FERROUS SULFATE) 325 Mg Tablet, 325 MG PO BIDWM for 30 Days Prov:VIPUL IZQUIERDO MD 07/29/20 Escitalopram Oxalate (LEXAPRO) 10 Mg Tablet, 20 MG PO DAILY for 30 Days Prov:VIPUL IZQUIERDO MD 07/29/20 Cholestyramine (CHOLESTYRAMINE LIGHT PACKET) 4 Gm Pack, 4 GM PO QID for 10 Days Prov:VIPLU IZQUIERDO MD 07/29/20 Ascorbic Acid (ASCORBIC ACID) 500 Mg Tablet, 500 MG PO BID for 30 Days Prov:VIPUL IZQUIERDO MD 07/29/20 [Atorvastatin] 40 MG TAB No Conflict Check, 40 MG PO HS for 30 Days Prov:VIPUL IZQUIERDO MD 07/29/20 Amiodarone Hcl (AMIODARONE HCL) 200 Mg Tablet, 200 MG PO DAILY for 30 Days Prov:VIPUL IZQUIERDO MD 07/29/20 Acetaminophen (ACETAMINOPHEN) 325 Mg/10 Ml Elix, 650 MG NG Q8H PRN for Mild Pain (1-3) or Fever>100.8 for 30 Days Prov:VIPUL IZQUIERDO MD 07/29/20 Medications in the ED Diatrizoate Meglum/ Diatrizoate Sod 30 ml STK-MED ONCE PO ; Start 09/01/20 at 10:41; Stop 09/01/20 at 10:34; Status DC XAVI MOREL MD Sep 01, 2020 11:05
--- NOTE | 2020-09-01 11:14 | Diagnostic Imaging Report ---
EXAM: Abdomen Radiograph 1 View(s) INDICATION: ^GASTRO FOR G-TUBE REPLACEMENT ^[id number] ^[id number] COMPARISON: None FINDINGS: Lines/tubes: There is a G-tube in place. There is contrast material seen outlining the gastric folds. Findings are suggestive of intragastric positioning of the G-tube. Nonobstructive bowel gas pattern. No abnormal calcification. Multilevel degenerative changes of the spine. No focal soft tissue abnormality. IMPRESSION: Contrast material outlining the gastric folds is suggestive of intragastric positioning of the G-tube. Signed by: Reece Bradley MD on 09/01/2020 11:11 AM
== END 2020-09-01 13:15 ==
LOC: ER 10:17
DX: Z43.1 Encounter for attention to gastrostomy (principal); L89.154 Pressure ulcer of sacral region, stage 4; I10 Essential (primary) hypertension; J44.9 Chronic obstructive pulmonary disease, unspecified; D64.9 Anemia, unspecified; I42.9 Cardiomyopathy, unspecified; Z95.810 Presence of automatic (implantable) cardiac defibrillator
CPT/HCPCS: 74018; 94002; 99284